=== PATIENT | female | born 1985 | race Native Hawaiian/Other Pacific Islander ===

== ENCOUNTER 2018-03-26 19:23 | Outpatient (CLI) | payer OTHER, MEDICAID | END 2018-03-26 19:24 | disposition EMS.NT | LOC: EMS 19:23 | PROVIDERS: ATTEND Surgery | DX: Z04.1 Encounter for examination and observation following transport accident (principal) ==

== ENCOUNTER 2018-03-26 20:18 | Emergency (ER) | payer OTHER, MEDICAID ==
[2018-03-26 20:33] VITALS: BP 129/73
[2018-03-26] MEDS ORDERED: CYCLOBENZAPRINE 10 MG TABLET PO STA (20:55)
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
== END 2018-03-26 22:25 | disposition home or self-care (01) ==
LOC: ED 20:18
DX: S19.9XXA Unspecified injury of neck, initial encounter (principal); V43.52XA Car driver injured in collision with other type car in traffic accident, initial encounter
CPT/HCPCS: 72040; 99282; 99283; A9270

== ENCOUNTER 2018-07-22 21:53 | Emergency (ER) | payer MEDICAID ==
--- NOTE | 2018-07-22 21:57 | ED Physician Documentation ---
PD HPI URI - Stated complaint Stated Complaint: THROAT PX/COUGH - History obtained from History obtained from: Patient - History of Present Illness Timing - onset: How many days ago (2-3) Timing duration: Days (She has had 2 to 3 days of progressive sore throat and pain with swallowing and now some coughing as well. She has not had any fevers. She did not feel any swollen glands. She has not had a runny nose. She has not had any prior similar episodes.) Timing details: Gradual onset, Still present Associated symptoms: Sore throat, Dry cough. No: Fever, Nasal congestion, Swollen nodes, Chest pain, NVD Contributing factors: No: Sick contact Similar symptoms before: Has not had sx before Recently seen: Not recently seen Review of Systems Constitutional: reports: Myalgias. denies: Fever, Chills Nose: denies: Rhinorrhea / runny nose, Congestion Throat: reports: Sore throat. denies: Oral lesions / sores Respiratory: reports: Cough. denies: Dyspnea, Wheezing GI: denies: Nausea, Vomiting, Diarrhea Skin: denies: Rash, Lesions Neurologic: denies: Headache PD PAST MEDICAL HISTORY - Past Medical History Past Medical History: No : Other - Past Surgical History Past Surgical History: No - Present Medications Home Medications: Ambulatory Orders Medication Instructions Recorded Confirmed Cyclobenzaprine [Flexeril] 10 mg PO TID PRN #20 tablet 03/26/18 Cetirizine [ZyrTEC] 10 mg PO DAILY #15 tablet 07/22/18 Dexamethasone [Decadron] 4 mg PO DAILY #5 tablet 07/22/18 Hydrocodone/Acetaminophen [[place] 1 each PO Q6H PRN #12 tablet 07/22/18 5-325 Tablet] Naproxen 375 mg PO BID #20 tablet 07/22/18 - Allergies Allergies/Adverse Reactions: Allergies Allergy/AdvReac Type Severity Reaction Status Date / Time No Known Drug Allergies Allergy Verified 07/22/18 22:05 - Social History Does the pt smoke?: No Smoking Status: Never smoker Does the pt drink ETOH?: No Does the pt have substance abuse?: Yes - Immunizations Immunizations are current?: No Immunizations: TDAP >10years/unknown - POLST Patient has POLST: No PD ED PE NORMAL - Vitals Vital signs reviewed: Yes - General General: Alert and oriented X 3, No acute distress, Well developed/nourished - HEENT HEENT: Ears normal, Moist mucous membranes. No: Pharynx benign (mild redness of the tonsils, without exudate. No oral ulcerations or other lesions. No peritonsillar edema. ) - Neck Neck: Supple, no meningeal sign, No adenopathy - Cardiac Cardiac: RRR, No murmur - Respiratory Respiratory: Clear bilaterally - Derm Derm: Normal color, Warm and dry, No rash Results - Vitals Vitals: Vital Signs - 24 hr 07/22/18 07/22/18 22:04 22:43 Temperature 36.8 C Heart Rate 74 Respiratory 17 16 Rate Blood Pressure 111/59 L O2 Saturation 99 Oxygen O2 Source Room air - Labs Labs: Laboratory Tests 07/22/18 07/22/18 22:05 22:15 Ur Specific [place] >=1.030 H Urine HCG, Qual NEGATIVE Group A Strep Rapid Negative PD MEDICAL DECISION MAKING - ED course Complexity details: considered differential, d/w patient Departure - Departure Disposition: 01 Home, Self Care Clinical Impression: Pharyngitis, acute Qualifiers: Pharyngitis/tonsillitis etiology: unspecified etiology Qualified Code(s): J02.9 - Acute pharyngitis, unspecified Condition: Stable Record reviewed to determine appropriate education?: Yes Instructions: ED Pharyngitis Viral Report Pending Prescriptions: Cetirizine [ZyrTEC] 10 mg PO DAILY #15 tablet Dexamethasone [Decadron] 4 mg PO DAILY #5 tablet Hydrocodone/Acetaminophen [[place] 5-325 Tablet] 1 each PO Q6H PRN #12 tablet PRN Reason: Pain Naproxen 375 mg PO BID #20 tablet Comments: Stay well-hydrated. Your rapid strep test is negative. The culture from that will result in 2 to 3 days and we will call you with it shows any signs of bacterial cause. For now will presume viral or allergy causes for this. Use naproxen and Decadron anti-inflammatories as directed. Add pain medicine if needed. Use cetirizine antihistamine daily for potential allergy cause and use that for the next several weeks. Discharge Date/Time: 07/22/18 22:44
[2018-07-22 22:05] VITALS: BP 111/59
[2018-07-22] MEDS ORDERED: HYDROcod/ACET 5/325 Prepack 4 PO STA (22:17)
[2018-07-22] MEDS ORDERED: NAPROXEN 250 MG TABLET PO STA (22:17)
[2018-07-22] MEDS ORDERED: CHERRY SYRUP 10 ML UDC PO ONE (22:17)
[2018-07-22] MEDS ORDERED: DEXAMETHASONE 10 MG/ML VIAL PO STA (22:17)
[2018-07-22 22:35] LABS: HCG UR QUAL NEGATIVE
== END 2018-07-22 22:44 | disposition home or self-care (01) ==
LOC: ED 21:53
DX: J02.9 Acute pharyngitis, unspecified (principal)
CPT/HCPCS: 81025; 87070; 87430; 99283; A9270

== ENCOUNTER 2018-10-04 00:52 | Emergency (ER) | payer MEDICAID ==
[2018-10-04 00:59] VITALS: BP 108/66
--- NOTE | 2018-10-04 01:15 | ED Physician Documentation ---
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 Denies h/o similar rash. Review of Systems Constitutional: denies: Fever Respiratory: denies: Dyspnea, Cough, Wheezing Skin: reports: Rash PD PAST MEDICAL HISTORY - Past Medical History Past Medical History: Yes Cardiovascular: None Respiratory: None Neuro: None Endocrine/Autoimmune: None GI: None CULTURIST: None : Other HEENT: None Psych: None Musculoskeletal: None Derm: None - Past Surgical History Past Surgical History: Yes General: Other - Present Medications Home Medications: Ambulatory Orders Medication Instructions Recorded Confirmed Cyclobenzaprine [Flexeril] 10 mg PO TID PRN #20 tablet 03/26/18 Cetirizine [ZyrTEC] 10 mg PO DAILY #15 tablet 07/22/18 Hydrocodone/Acetaminophen [[place] 1 each PO Q6H PRN #12 tablet 07/22/18 5-325 Tablet] Naproxen 375 mg PO BID #20 tablet 07/22/18 dexAMETHasone [Decadron] 4 mg PO DAILY #5 tablet 07/22/18 Cetirizine HCl 10 mg PO DAILY #10 tablet 10/04/18 predniSONE [Prednisone] 40 mg PO DAILY 3 Days #6 tablet 10/04/18 - Allergies Allergies/Adverse Reactions: Allergies Allergy/AdvReac Type Severity Reaction Status Date / Time No Known Drug Allergies Allergy Verified 10/04/18 00:59 - Social History Does the pt smoke?: Yes Smoking Status: Current every day smoker Does the pt drink ETOH?: No Does the pt have substance abuse?: Yes Substance Use and Type: Marijuana - Immunizations Immunizations are current?: No Immunizations: TDAP >10years/unknown - POLST Patient has POLST: No PD ED PE NORMAL - Vitals Vital signs reviewed: Yes - General General: Alert and oriented X 3, No acute distress, Well developed/nourished - Respiratory Respiratory: No respiratory distress, Clear bilaterally PD ED PE EXPANDED - Derm Derm: Urticaria (BUE, back (lower back), abdomen) Results - Vitals Vitals: Vital Signs - 24 hr 10/04/18 10/04/18 10/04/18 00:58 01:23 01:42 Temperature 36.7 C Heart Rate 73 Respiratory 17 17 16 Rate Blood Pressure 108/66 O2 Saturation 96 Oxygen O2 Source Room air PD MEDICAL DECISION MAKING - ED course Complexity details: considered differential, d/w patient ED course: rash c/w urticaria/hives without apparent inciting event/factor(s). will treat with steroid (decadron now and prednisone rx) and antihistamines Departure - Departure Disposition: 01 Home, Self Care Clinical Impression: Hives Condition: Good Health Concerns: rash Plan of Treatment: antihistamines as directed. steroid (prednisone) as prescribed Care Goals: symptom control, prevention of recurrence Assessment: see diagnosis Instructions: ED Allergic Reaction General Other Prescriptions: Cetirizine HCl 10 mg PO DAILY #10 tablet predniSONE [Prednisone] 40 mg PO DAILY 3 Days #6 tablet Discharge Date/Time: 10/04/18 01:43
[2018-10-04] MEDS ORDERED: DEXAMETHASONE 10 MG/ML VIAL PO STA (01:32)
[2018-10-04] MEDS ORDERED: CHERRY SYRUP 10 ML UDC PO ONE (01:32)
[2018-10-04] MEDS ORDERED: diphenhydrAMINE 25 MG CAPSULE PO STA (01:33)
== END 2018-10-04 01:43 | disposition home or self-care (01) ==
LOC: ED 00:52
DX: L50.9 Urticaria, unspecified (principal); F17.200 Nicotine dependence, unspecified, uncomplicated
CPT/HCPCS: 99282; 99283; A9270

== ENCOUNTER 2018-12-10 17:31 | Emergency (ER) | payer MEDICAID ==
--- NOTE | 2018-12-10 17:56 | ED Physician Documentation ---
History of Present Illness - Stated complaint Stated Complaint: FATIGUE/COLD - Chief complaint Chief Complaint: General - History obtained from History obtained from: Patient - History of Present Illness Timing: How many weeks ago (2) Pain level now: 0 - Additonal information Additional information: This is a 33-year-old woman who states that she is with a last menstrual period at the beginning of October who presents with c/o extreme fatigue and feeling cold and 'not right'. She has had 2+ home test but does not have an OB appointment until December 20. She says she is been waking up in the mornings just with this feeling of gas in her stomach and she is burping a lot she has this constant urge to vomit although she is not vomiting. She is been extremely fatigued and also feels so cold that she is dressing and a sweatshirt and to sitting in the sun and still feels cold. She feels that absolutely certain this is not related to the because this is her third she never experienced anything like this with her prior pregnancies. She has not felt ill in terms of a sore throat or stuffy nose or had fever. She has not been nauseous or experiencing heartburn. She does not feel dizzy but she was driving down the road the other day and it just only felt like the sunlight was way too bright. She has not had any pelvic cramping. She has not started taking multivitamins yet. The patient does have a no history of thyroid disorder but has had anemia associated with in the past. She has a 3-year-old and a 4-year-old children at home. She was working but quit over the summer and denies alcohol but says she is trying to cut back on her use of marijuana during this . Review of Systems Constitutional: denies: Fever Eyes: reports: Other (There is times that everything seems to bright) Ears: denies: Ear pain Nose: denies: Rhinorrhea / runny nose Throat: denies: Sore throat Cardiac: denies: Chest pain / pressure, Palpitations Respiratory: denies: Dyspnea, Cough GI: reports: Nausea. denies: Abdominal Pain, Vomiting : reports: LMP (beginning October), Now EGA (7-8 weeks). denies: Dysuria Skin: denies: Rash Musculoskeletal: denies: Extremity pain, Joint swelling Neurologic: reports: Generalized weakness. 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 : Other HEENT: None Psych: None Musculoskeletal: None Derm: None - Past Surgical History Past Surgical History: Yes General: Other - Present Medications Home Medications: Ambulatory Orders Medication Instructions Recorded Confirmed Cyclobenzaprine [Flexeril] 10 mg PO TID PRN #20 tablet 03/26/18 Cetirizine [ZyrTEC] 10 mg PO DAILY #15 tablet 07/22/18 Hydrocodone/Acetaminophen [[place] 1 each PO Q6H PRN #12 tablet 07/22/18 5-325 Tablet] Naproxen 375 mg PO BID #20 tablet 07/22/18 dexAMETHasone [Decadron] 4 mg PO DAILY #5 tablet 07/22/18 Cetirizine HCl 10 mg PO DAILY #10 tablet 10/04/18 predniSONE [Prednisone] 40 mg PO DAILY 3 Days #6 tablet 10/04/18 - Allergies Allergies/Adverse Reactions: Allergies Allergy/AdvReac Type Severity Reaction Status Date / Time No Known Drug Allergies Allergy Verified 12/10/18 17:45 - Social History Does the pt smoke?: Yes Smoking Status: Current every day smoker Does the pt drink ETOH?: No Does the pt have substance abuse?: Yes - Immunizations Immunizations are current?: No Immunizations: TDAP >10years/unknown - POLST Patient has POLST: No PD ED PE NORMAL - Vitals Vital signs reviewed: Yes - General General: Alert and oriented X 3, Other (She became tearful concerned that something is very wrong with her.) - HEENT HEENT: PERRL, EOMI, Pharynx benign, Other (Mucous membranes are little dry.) - Neck Neck: Supple, no meningeal sign, No adenopathy, Thyroid normal, No JVD - Cardiac Cardiac: RRR, No murmur - Respiratory Respiratory: No respiratory distress, Clear bilaterally - Abdomen Abdomen: Normal bowel sounds, Soft, Non tender - Derm Derm: Normal color, Warm and dry, No rash - Extremities Extremities: No deformity, No edema - Neuro Neuro: Alert and oriented X 3, gis coordinator 2-12 intact, No motor deficit, No sensory deficit, Normal speech - Psych Psych: Other (Tearful and anxious) Results - Vitals Vitals: Vital Signs - 24 hr 12/10/18 12/10/18 12/10/18 17:45 18:57 19:42 Temperature 37.0 C Heart Rate 81 75 Respiratory 16 18 17 Rate Blood Pressure 119/65 109/71 119/74 O2 Saturation 99 100 100 Oxygen O2 Source Room air - Labs Labs: Laboratory Tests 12/10/18 12/10/18 12/10/18 18:20 18:20 18:20 WBC 10.1 RBC 4.23 Hgb 12.6 Hct 37.2 MCV 87.9 MCH 29.8 MCHC 33.9 RDW 12.3 Plt Count 288 MPV 10.6 Neut # (Auto) 7.0 H Lymph # (Auto) 2.2 [place] # (Auto) 0.6 Eos # (Auto) 0.2 Baso # (Auto) 0.0 Absolute Nucleated RBC 0.00 Nucleated RBC % 0.0 Sodium 135 Potassium 3.7 Chloride 102 Carbon Dioxide 24 Anion Gap 9.0 BUN 11 Creatinine 0.5 Estimated GFR (MDRD) 144 Glucose 92 Calcium 9.6 Phosphorus 3.8 Magnesium 2.1 Total Bilirubin 0.4 AST 14 ALT 10 Alkaline Phosphatase 40 L Total Protein 7.6 Albumin 4.8 Globulin 2.8 Albumin/Globulin Ratio 1.7 Lipase 21 L TSH 0.67 Urine Color Urine Clarity Urine pH Ur Specific [place] Urine Protein Urine Glucose (UA) Urine Ketones Urine Occult Blood Urine Nitrite Urine Bilirubin Urine Urobilinogen Ur Leukocyte Esterase Ur Microscopic Review Urine Culture Comments Urine HCG, Qual Urine Opiates Screen Ur Oxycodone Screen Urine Methadone Screen Ur Propoxyphene Screen Ur Barbiturates Screen Ur Tricyclics Screen Ur Phencyclidine Scrn Ur Amphetamine Screen U Methamphetamines Scrn U Benzodiazepines Scrn Urine Cocaine Screen U Cannabinoids Screen 12/10/18 12/10/18 18:23 18:24 WBC RBC Hgb Hct MCV MCH MCHC RDW Plt Count MPV Neut # (Auto) Lymph # (Auto) [place] # (Auto) Eos # (Auto) Baso # (Auto) Absolute Nucleated RBC Nucleated RBC % Sodium Potassium Chloride Carbon Dioxide Anion Gap BUN Creatinine Estimated GFR (MDRD) Glucose Calcium Phosphorus Magnesium Total Bilirubin AST ALT Alkaline Phosphatase Total Protein Albumin Globulin Albumin/Globulin Ratio Lipase TSH Urine Color YELLOW Urine Clarity CLEAR Urine pH 6.5 Ur Specific [place] 1.020 Urine Protein NEGATIVE Urine Glucose (UA) NEGATIVE Urine Ketones 15 H Urine Occult Blood NEGATIVE Urine Nitrite NEGATIVE Urine Bilirubin NEGATIVE Urine Urobilinogen 0.2 (NORMAL) Ur Leukocyte Esterase NEGATIVE Ur Microscopic Review NOT INDICATED Urine Culture Comments NOT INDICATED Urine HCG, Qual POSITIVE Urine Opiates Screen NEGATIVE Ur Oxycodone Screen NEGATIVE Urine Methadone Screen NEGATIVE Ur Propoxyphene Screen NEGATIVE Ur Barbiturates Screen NEGATIVE Ur Tricyclics Screen NEGATIVE Ur Phencyclidine Scrn NEGATIVE Ur Amphetamine Screen NEGATIVE U Methamphetamines Scrn NEGATIVE U Benzodiazepines Scrn NEGATIVE Urine Cocaine Screen NEGATIVE U Cannabinoids Screen POSITIVE H PD MEDICAL DECISION MAKING - ED course Complexity details: reviewed results, re-evaluated patient, d/w patient ED course: Patient was feeling a little better after a liter of fluids. She is not anemic. Electrolytes are normal and her TSH is normal. 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 Encouraged her to seek some relief with family members in terms of helping to take care of her children so that she can get some rest. Keep her OB appointment in December as scheduled. Follow-up sooner if her symptoms are worsening. Departure - Departure Disposition: Home, Self Care Clinical Impression: Fatigue Qualifiers: Fatigue type: -related Trimester: first trimester Qualified Code(s): O26.811 - related exhaustion and fatigue, first trimester Condition: Good Instructions: Fatigue Manage Follow-Up: Dr Jesus [Other] Comments: You should begin a vitamin with iron [id number].Make sure that you rest as much as possible. Eat a healthy diet and follow-up with the OB as scheduled on December 20. Return if your symptoms are worsening.
[2018-12-10] MEDS ORDERED: SODIUM CHLORIDE 0.9% 1,000 ML IV ONE (18:10)
[2018-12-10 18:31] LABS: BILIRUBIN,URINE NEGATIVE (NEGATIVE); GLUCOSE, URINE (UA) NEGATIVE (NEGATIVE); KETONES,URINE (UA) 15 mg/dL (NEGATIVE); LEUKOCYTE ESTERASE, URINE NEGATIVE (NEGATIVE); NITRITE,URINE NEGATIVE (NEGATIVE); OCCULT BLOOD,URINE NEGATIVE (NEGATIVE); PH,URINE 6.5 PH (5.0-7.5); PROTEIN,URINE NEGATIVE (NEGATIVE); UROBILINOGEN,URINE 0.2 (NORMAL) E.U./dL (NORMAL)
[2018-12-10 18:36] LABS: CLARITY,URINE CLEAR (CLEAR); HCG UR QUAL POSITIVE
[2018-12-10 18:37] LABS: MUDS CUTOFF CONCENTRATIONS CUTOFF CONC BELOW:
[2018-12-10 18:39] LABS: BASOPHILS % (AUTO) 0.4 %; EOSINOPHILS # (AUTO) 0.2 10^3/uL (0.0-0.7); EOSINOPHILS % (AUTO) 1.5 %; HGB - HEMOGLOBIN 12.6 g/dL (12.0-16.0); LYMPHOCYTES # (AUTO) 2.2 10^3/uL (1.5-3.5); LYMPHOCYTES % (AUTO) 22.2 %; MEAN CORPUSCULAR HEMOGLOBIN 29.8 pg (27.0-31.0); MEAN CORPUSCULAR HGB CONC 33.9 g/dL (32.0-36.0); MEAN CORPUSCULAR VOLUME 87.9 fL (81.0-99.0); MEAN PLATELET VOLUME 10.6 fL (7.9-10.8); MONOCYTES # (AUTO) 0.6 10^3/uL (0.0-1.0); MONOCYTES % (AUTO) 6.4 %; PLT - PLATELET COUNT 288 10^3/uL (130-450); RED BLOOD COUNT 4.23 10^6/uL (4.20-5.40); RED CELL DISTRIBUTION WIDTH 12.3 % (12.0-15.0); WHITE BLOOD COUNT 10.1 x10^3/uL (4.8-10.8)
[2018-12-10 18:45] LABS: AMPHETAMINE SCREEN,URINE NEGATIVE (NEGATIVE); BENZODIAZEPINES SCREEN, URINE NEGATIVE (NEGATIVE); COCAINE SCREEN URINE NEGATIVE (NEGATIVE); METHADONE SCREEN, URINE NEGATIVE (NEGATIVE); METHAMPHETAMINES SCREEN, URINE NEGATIVE (NEGATIVE); OPIATE SCREEN, URINE NEGATIVE (NEGATIVE); OXYCODONE SCREEN, URINE NEGATIVE (NEGATIVE); PROPOXYPHENE SCREEN, URINE NEGATIVE (NEGATIVE); TRICYCLIC ANTIDEPRESSANT,URINE NEGATIVE (NEGATIVE)
[2018-12-10 18:53] LABS: ALBUMIN 4.8 g/dL (3.2-5.5); ALBUMIN/GLOBULIN RATIO 1.7 (1.0-2.2); BILIRUBIN,TOTAL 0.4 mg/dL (0.2-1.0); CALCIUM 9.6 mg/dL (8.5-10.3); CREATININE 0.5 mg/dL (0.4-1.0); MAGNESIUM 2.1 mg/dL (1.7-2.8); PHOSPHORUS 3.8 mg/dL (2.5-4.6); TOTAL PROTEIN 7.6 g/dL (6.7-8.2)
[2018-12-10 19:43] VITALS: BP 119/74
== END 2018-12-10 20:38 | disposition home or self-care (01) ==
LOC: ED 17:31
DX: O26.811 Pregnancy related exhaustion and fatigue, first trimester (principal); F17.200 Nicotine dependence, unspecified, uncomplicated
CPT/HCPCS: 36415; 80053; 80306; 81001; 81003; 81025; 83690; 83735; 84100; 84443; 85025; 87086; 96360; 99284

== ENCOUNTER 2019-12-03 12:18 | Emergency (ER) | payer MEDICAID ==
--- NOTE | 2019-12-03 12:48 | ED Physician Documentation ---
PD HPI FEMALE - Stated complaint Stated Complaint: FEMALE - Chief complaint Chief Complaint: Abd Pain - History obtained from History obtained from: Patient - Additional information Additional information: 34-year-old woman had her third child in July. About [facility] through the she was having some problems and I guess per her description had some high-grade cervical dysplasia on both Pap smear and biopsy and was told that after she delivered would need a LEEP procedure. However subsequent to Delivery, repeat Pap smear was normal and so never had a LEEP procedure. 2 weeks ago had a large volume 4-day menses and since then has had lower pelvic pain especially on the left. She also notes a hemorrhoid that bled a lot today when she had a bowel movement. She is breast-feeding.She tried to get into the clinic but they would not allow her to schedule an appointment. Review of Systems Constitutional: denies: Fever, Chills Cardiac: denies: Palpitations Respiratory: denies: Dyspnea, Cough GI: reports: Abdominal Pain. 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 : Other HEENT: None Psych: None Musculoskeletal: None Derm: None - Past Surgical History Past Surgical History: Yes General: Other - Present Medications Home Medications: Ambulatory Orders Medication Instructions Recorded Confirmed Cyclobenzaprine [Flexeril] 10 mg PO TID PRN #20 tablet 03/26/18 Cetirizine [ZyrTEC] 10 mg PO DAILY #15 tablet 07/22/18 Hydrocodone/Acetaminophen [[place] 1 each PO Q6H PRN #12 tablet 07/22/18 5-325 Tablet] Naproxen 375 mg PO BID #20 tablet 07/22/18 dexAMETHasone [Decadron] 4 mg PO DAILY #5 tablet 07/22/18 Cetirizine HCl 10 mg PO DAILY #10 tablet 10/04/18 predniSONE [Prednisone] 40 mg PO DAILY 3 Days #6 tablet 10/04/18 metroNIDAZOLE [Flagyl] 500 mg PO BID #14 tablet 12/03/19 - Allergies Allergies/Adverse Reactions: Allergies Allergy/AdvReac Type Severity Reaction Status Date / Time hydrocodone AdvReac Nausea Verified 12/03/19 12:42 - Social History Does the pt smoke?: Yes Smoking Status: Current every day smoker Does the pt drink ETOH?: No Does the pt have substance abuse?: Yes - Immunizations Immunizations are current?: No Immunizations: TDAP >10years/unknown - POLST Patient has POLST: No PD ED PE NORMAL - Vitals Vital signs reviewed: Yes - General General: Alert and oriented X 3, No acute distress - Abdomen Abdomen: Soft, Non tender - Female Female : Replenisher present (Irene and Seble RN), Other (Mod amt thick creamy discharge. No cervical motion or adnexal tenderness. No masses.) - Rectal Rectal: Other (Single small nonthrombosed external hemorrhoid) - Back Back: No CVA TTP, No spinal TTP - Neuro Neuro: Alert and oriented X 3, Normal speech - Psych Psych: Normal mood, Normal affect Results - Vitals Vitals: Vital Signs - 24 hr 12/03/19 12/03/19 12/03/19 12:33 14:25 15:14 Temperature 36.5 C 36.8 C 36.8 C Heart Rate 68 77 77 Respiratory 16 16 16 Rate Blood Pressure 140/99 H 138/96 H 138/96 H O2 Saturation 99 96 97 Oxygen O2 Source Room air - Labs Labs: Microbiology 12/03/19 13:05 Wet Prep - Final Vaginal Laboratory Tests 12/03/19 12/03/19 12/03/19 12:47 12:49 12:55 WBC 6.7 RBC 4.49 Hgb 13.2 Hct 39.9 MCV 88.9 MCH 29.4 MCHC 33.1 RDW 13.2 Plt Count 338 MPV 10.3 Neut # (Auto) 4.1 Lymph # (Auto) 2.0 [place] # (Auto) 0.4 Eos # (Auto) 0.2 Baso # (Auto) 0.1 Absolute Nucleated RBC 0.00 Nucleated RBC % 0.0 Sodium Potassium Chloride Carbon Dioxide Anion Gap BUN Creatinine Estimated GFR (MDRD) Glucose Calcium Total Bilirubin AST ALT Alkaline Phosphatase Total Protein Albumin Globulin Albumin/Globulin Ratio Lipase Urine Color YELLOW Urine Clarity CLEAR Urine pH 6.5 Ur Specific [place] 1.015 1.015 Urine Protein NEGATIVE Urine Glucose (UA) NEGATIVE Urine Ketones TRACE Urine Occult Blood NEGATIVE Urine Nitrite NEGATIVE Urine Bilirubin NEGATIVE Urine Urobilinogen 0.2 (NORMAL) Ur Leukocyte Esterase NEGATIVE Ur Microscopic Review NOT INDICATED Urine Culture Comments NOT INDICATED Urine HCG, Qual NEGATIVE C. glabrata (PCR) C. krusei (PCR) [place]via species DNA T. vaginalis (PCR) Bact Vaginosis (PCR) 12/03/19 12/03/19 12:55 13:05 WBC RBC Hgb Hct MCV MCH MCHC RDW Plt Count MPV Neut # (Auto) Lymph # (Auto) [place] # (Auto) Eos # (Auto) Baso # (Auto) Absolute Nucleated RBC Nucleated RBC % Sodium 137 Potassium 3.6 Chloride 101 Carbon Dioxide 28 Anion Gap 8.0 BUN 15 Creatinine 0.6 Estimated GFR (MDRD) 116 Glucose 90 Calcium 9.5 Total Bilirubin 0.9 AST 18 ALT 16 Alkaline Phosphatase 70 Total Protein 8.2 Albumin 5.0 Globulin 3.2 Albumin/Globulin Ratio 1.6 Lipase 23 Urine Color Urine Clarity Urine pH Ur Specific [place] Urine Protein Urine Glucose (UA) Urine Ketones Urine Occult Blood Urine Nitrite Urine Bilirubin Urine Urobilinogen Ur Leukocyte Esterase Ur Microscopic Review Urine Culture Comments Urine HCG, Qual C. glabrata (PCR) NEGATIVE C. krusei (PCR) NEGATIVE [place] species DNA NEGATIVE T. vaginalis (PCR) NEGATIVE Bact Vaginosis (PCR) POSITIVE A PD MEDICAL DECISION MAKING - ED course ED course: 34-year-old woman had heavy bleeding couple of weeks ago and now has pelvic pain . There was some Concern about abnormal Pap smears and biopsies, discussed with her that that would have to be worked up with a duplicating machine servicer, but we did find evidence of pelvic congestion syndrome, fibroids, and bacterial vaginosis. Counseled at length about these diagnoses and started on Flagyl for the latter. Departure - Departure Disposition: 01 Home, Self Care Clinical Impression: Bacterial vaginosis, Pelvic congestion syndrome Fibroid uterus Qualifiers: Uterine leiomyoma location: unspecified location Qualified Code(s): D25.9 - Leiomyoma of uterus, unspecified Condition: Good Record reviewed to determine appropriate education?: Yes Instructions: Pelvic Congestion Syndrome, ED Fibroids, ED Vaginosis Bacterial Follow-Up: [facility] [Provider Group] Prescriptions: metroNIDAZOLE [Flagyl] 500 mg PO BID #14 tablet Comments: As discussed, we found 3 things today, it appears that you have some fibroids and pelvic congestion on ultrasound. For this you should follow-up with the duplicating machine servicer for further evaluation and treatment and to discuss options. You also have evidence of bacterial vaginosis. This should be treated with the Flagyl antibiotic I am giving you, do not Drink alcohol while taking the antibiotic it will make you quite ill. Return if worsening. Ibuprofen as needed for the pain. Blood Work, urinalysis, and test were negative/normal. Discharge Date/Time: 12/03/19 15:15
[2019-12-03 12:58] LABS: BILIRUBIN,URINE NEGATIVE (NEGATIVE); GLUCOSE, URINE (UA) NEGATIVE (NEGATIVE); KETONES,URINE (UA) TRACE mg/dL (NEGATIVE); LEUKOCYTE ESTERASE, URINE NEGATIVE (NEGATIVE); NITRITE,URINE NEGATIVE (NEGATIVE); OCCULT BLOOD,URINE NEGATIVE (NEGATIVE); PH,URINE 6.5 PH (5.0-7.5); PROTEIN,URINE NEGATIVE (NEGATIVE); UROBILINOGEN,URINE 0.2 (NORMAL) E.U./dL (NORMAL)
[2019-12-03 12:59] LABS: BASOPHILS # (AUTO) 0.1 10^3/uL (0.0-0.1); BASOPHILS % (AUTO) 0.9 %; EOSINOPHILS # (AUTO) 0.2 10^3/uL (0.0-0.7); EOSINOPHILS % (AUTO) 2.5 %; HGB - HEMOGLOBIN 13.2 g/dL (12.0-16.0); LYMPHOCYTES % (AUTO) 29.9 %; MEAN CORPUSCULAR HEMOGLOBIN 29.4 pg (27.0-31.0); MEAN CORPUSCULAR HGB CONC 33.1 g/dL (32.0-36.0); MEAN CORPUSCULAR VOLUME 88.9 fL (81.0-99.0); MEAN PLATELET VOLUME 10.3 fL (7.9-10.8); MONOCYTES # (AUTO) 0.4 10^3/uL (0.0-1.0); MONOCYTES % (AUTO) 5.5 %; NEUTROPHILS # (AUTO) 4.1 10^3/uL (1.5-6.6); NEUTROPHILS % (AUTO) 61.1 %; PLT - PLATELET COUNT 338 10^3/uL (130-450); RED BLOOD COUNT 4.49 10^6/uL (4.20-5.40); RED CELL DISTRIBUTION WIDTH 13.2 % (12.0-15.0); WHITE BLOOD COUNT 6.7 x10^3/uL (4.8-10.8)
[2019-12-03 13:01] LABS: CLARITY,URINE CLEAR (CLEAR)
[2019-12-03 13:11] LABS: ALBUMIN/GLOBULIN RATIO 1.6 (1.0-2.2); BILIRUBIN,TOTAL 0.9 mg/dL (0.2-1.0); CALCIUM 9.5 mg/dL (8.5-10.3); CREATININE 0.6 mg/dL (0.4-1.0); TOTAL PROTEIN 8.2 g/dL (6.7-8.2)
[2019-12-03 13:41] LABS: HCG UR QUAL NEGATIVE
[2019-12-03 14:26] VITALS: BP 138/96
--- NOTE | 2019-12-03 14:49 | Ultrasound Report ---
PROCEDURE: Pelvic w/Transvag+Doppler Comp INDICATIONS: pelvic pain, R TECHNIQUE: Real-time scanning was performed of the pelvic organs, with image documentation. Additional endovagi nal scanning was necessary due to incomplete visualization of the adnexal and endometrial structures by transabdominal scanning. COMPARISON: None. FINDINGS: Transabdominal scanning: Limited scanning through the kidneys shows no hydronephrosis. No pathologi c free abdominal or pelvic fluid. Endovaginal scanning: Uterus: Uterus is anteverted and normal in size at 8.2 x 3.9 x 4.3 cm. The endometrium measures 5 m m in combined thickness. Uterine myometrium is mildly heterogeneous without focal mass. Ovaries: Normal follicular echotexture seen on each ovary. The right ovary measures 2.2 x 2.0 x 2.4 cm for a volume of 5.4 cc. The left ovary measures 3.2 x 1.5 x 1.7 cm for a volume of 4.4 cc. Trace amount of posterior cul-de-sac fluid. Prominent, patent pelvic vasculature may indicate pelvic congestion syndrome, otherwise physiologic. No venous thrombosis. IMPRESSION: 1. Mildly heterogeneous uterus may indicate adenomyosis. 2. Normal ovaries. 3. Prominent pelvic vessels. Consider pelvic congestion syndrome. 4. Preliminary results provided by the hydraulic controls technician to the emergency room provider. Reviewed by: Oneyda Sky MD on 12/03/2019 2:48 PM PDT Approved by: Oneyda Sky MD on 12/03/2019 2:48 PM PDT Station ID: [id number]
[2019-12-03 15:18] LABS: CANDIDA GROUP DNA NEGATIVE (NEGATIVE); CANDIDA KRUSEI DNA NEGATIVE (NEGATIVE); TRICHOMONAS VAGINALIS DNA NEGATIVE (NEGATIVE)
== END 2019-12-03 15:15 | disposition home or self-care (01) ==
LOC: ED 12:18
DX: N76.0 Acute vaginitis (principal); N94.89 Other specified conditions associated with female genital organs and menstrual cycle; D25.9 Leiomyoma of uterus, unspecified; F17.200 Nicotine dependence, unspecified, uncomplicated
CPT/HCPCS: 36415; 76830; 76856; 80053; 81001; 81003; 81025; 81599; 83690; 85025; 87086; 87210; 87491; 87591; 87661; 87801; 93975; 99284

== ENCOUNTER 2020-02-23 08:00 | Outpatient (CLI) | payer MEDICAID | END 2020-02-23 23:59 | disposition home or self-care (01) | LOC: LAB.R 08:00 | PROVIDERS: ATTEND Nurse Practitioner Obstetrics & Gynecology | DX: N94.89 Other specified conditions associated with female genital organs and menstrual cycle (principal); N89.8 Other specified noninflammatory disorders of vagina | CPT/HCPCS: 81599; 87481; 87661 ==

== ENCOUNTER 2020-03-28 12:15 | Outpatient (CLI) | payer MEDICAID ==
[2020-03-28 19:20] LABS: BASOPHILS # (AUTO) 0.1 10^3/uL (0.0-0.1); BASOPHILS % (AUTO) 0.7 %; EOSINOPHILS # (AUTO) 0.2 10^3/uL (0.0-0.7); EOSINOPHILS % (AUTO) 2.4 %; HGB - HEMOGLOBIN 12.6 g/dL (12.0-16.0); LYMPHOCYTES # (AUTO) 2.3 10^3/uL (1.5-3.5); LYMPHOCYTES % (AUTO) 32.9 %; MEAN CORPUSCULAR HEMOGLOBIN 29.2 pg (27.0-31.0); MEAN CORPUSCULAR HGB CONC 32.3 g/dL (32.0-36.0); MEAN CORPUSCULAR VOLUME 90.3 fL (81.0-99.0); MEAN PLATELET VOLUME 11.1 fL (7.9-10.8); MONOCYTES # (AUTO) 0.4 10^3/uL (0.0-1.0); MONOCYTES % (AUTO) 6.1 %; NEUTROPHILS # (AUTO) 4.1 10^3/uL (1.5-6.6); NEUTROPHILS % (AUTO) 57.6 %; PLT - PLATELET COUNT 309 10^3/uL (130-450); RED BLOOD COUNT 4.32 10^6/uL (4.20-5.40); RED CELL DISTRIBUTION WIDTH 12.4 % (12.0-15.0); WHITE BLOOD COUNT 7.1 x10^3/uL (4.8-10.8)
[2020-03-28 19:22] LABS: ALBUMIN 4.8 g/dL (3.2-5.5); ALBUMIN/GLOBULIN RATIO 1.7 (1.0-2.2); BILIRUBIN,TOTAL 0.9 mg/dL (0.2-1.0); CALCIUM 10.2 mg/dL (8.5-10.3); CREATININE 0.4 mg/dL (0.4-1.0); TOTAL PROTEIN 7.7 g/dL (6.7-8.2)
[2020-03-28 19:49] LABS: BILIRUBIN,URINE NEGATIVE (NEGATIVE); GLUCOSE, URINE (UA) NEGATIVE (NEGATIVE); KETONES,URINE (UA) NEGATIVE (NEGATIVE); LEUKOCYTE ESTERASE, URINE NEGATIVE (NEGATIVE); NITRITE,URINE NEGATIVE (NEGATIVE); OCCULT BLOOD,URINE NEGATIVE (NEGATIVE); PROTEIN,URINE NEGATIVE (NEGATIVE); UROBILINOGEN,URINE 1 (NORMAL) E.U./dL (NORMAL)
[2020-03-28 20:07] LABS: CLARITY,URINE CLOUDY (CLEAR)
[2020-03-28 20:08] LABS: AMORPHOUS SEDIMENT,UR Marked /LPF; BACTERIA,URINE None Seen /HPF (None Seen); RBC,URINE None Seen /HPF (0-5); SQUAMOUS EPITHELIAL CELL,UR NONE SEEN (<= Few)
== END 2020-03-28 23:59 | disposition home or self-care (01) ==
LOC: LAB.N 12:15
PROVIDERS: ATTEND Family Medicine
DX: R10.9 Unspecified abdominal pain (principal)
CPT/HCPCS: 36415; 80053; 81001; 81003; 82150; 83690; 85025; 87086

== ENCOUNTER 2020-04-06 18:45 | Outpatient (CLI) | payer MEDICAID ==
--- NOTE | 2020-04-07 08:38 | Ultrasound Report ---
PROCEDURE: Abdomen Complete INDICATIONS: ABDOMINAL PAIN TECHNIQUE: Real-time scanning was performed of the abdominal and retroperitoneal organs, with image documentatio n. COMPARISON: Correlation is made with overlapping portions of pelvic ultrasound 12/03/2019. FINDINGS: Liver: Liver is normal in size and homogeneous in echotexture. Gallbladder: No gallstones or significant sludge can be seen. The gallbladder wall does not appear th ickened. There is no specific pericholecystic fluid. The sonographic Dominguez's sign is negative. Biliary ducts: Intrahepatic bile ducts are non-dilated. Extrahepatic bile duct caliber measures 4 m m. Normal is 6-7 mm or less in diameter, or 10 mm or less post-cholecystectomy. Pancreas: Visualized portions of the pancreas are sonographically normal. Spleen: Spleen is normal in size and homogeneous in echotexture. Kidneys: Kidneys are normal in size and echotexture. Right kidney measures 10.6 cm long; left kidne y measures 10.1 cm long. No hydronephrosis or nephrolithiasis. No solid masses. Aorta: Visualized aorta is normal in caliber at less than 3 cm. Iliacs: Proximal common iliac arteries are normal in caliber at less than 2.5 cm. IVC: Intrahepatic inferior vena cava is patent. Miscellaneous: No free abdominal fluid. Overall scanning quality is limited, secondary to patient pain and inability to tolerate scanning, pa rticularly involving the left kidney. The patient terminated further imaging of the left kidney. IMPRESSION: There is tenderness when scanning the left kidney. However, no left kidney abnormality is seen. There is no hydronephrosis. The gallbladder demonstrates a normal sonographic appearance. No biliary dilatation is seen. Reviewed by: Armani Adorno MD on 04/07/2020 7:36 AM [facility] Approved by: Armani Adorno MD on 04/07/2020 7:36 AM [facility] Station ID: [id number]
== END 2020-04-06 18:46 | disposition home or self-care (01) ==
LOC: DI 18:45
PROVIDERS: ATTEND Family Medicine
DX: R10.9 Unspecified abdominal pain (principal)

== ENCOUNTER 2022-03-23 18:04 | Emergency (ER) | payer MEDICAID, OTHER ==
[2022-03-23 18:11] VITALS: BP 121/66
--- OUTSIDE RECORDS SUMMARY | 2022-03-23 18:37 | EXTERNAL MEDICAL SUMMARY RPT | Continuity of Care Document ---
:1985 Author Organization [facility] Address [address] [place] [address] Phone Care Team Providers Name Role Phone Gurpreet Bal Unavailable Unavailable Allergies and Intolerances date description facility type (no date) acetaminophen [facility] (unknown) (no date) hydrocodone [facility] (unknown) (no date) oxycodone [facility] (unknown) Encounters No information. Functional Status No information. Immunizations No information. Medications No information. Problems date description facility 2022-02-03 09:29 Alcohol use, unspecified, uncomplicated [facility] 2022-02-03 09:29 Varicose veins of right lower extremity with [facility] pain 2022-02-03 09:29 Encounter for general adult medical exa mination [facility] without abno 2022-02-03 09:29 Encounter for gynecological examination [facility] (general) (routine) 2022-02-03 09:29 Encounter for screening for human [facility] papillomavirus (HPV) 2022-02-03 09:29 Encounter for screening for malignant n eoplasm [facility] of cervix 2022-02-03 09:29 Encounter for initial prescription of [facility] transdermal patch horm 2022-02-03 09:29 Alcohol abuse counseling and surveillan ce of [facility] alcoholic 2022-02-03 09:29 Other problems related to lifestyle [facility] 2022-02-03 09:29 Other specified postprocedural states [facility] 2022-02-05 13:22 Unspecified ovarian cyst, left side [facility] 2022-02-05 13:22 Left lower quadrant pain [facility] 2022-03-20 00:00 Left flank pain [facility] 2022-03-20 00:00 Hematuria [facility] Procedures date description facility 2022-03-19 00:00 CT kidney, ureter and bladder [facility] Results/Labs test date author facility value unit interpret ation Result panel 1 (unknown) (no date) (unknown) [facility] Result panel 2 (unknown) (no date) (unknown[facility]) Result panel 3 (unknown) (no date) (unknown[facility]) Result panel 4 (unknown) (no date) (unknown[facility]) Result panel 5 (unknown) (no date) (unknown[facility]) Result panel 6 (unknown) (no date) (unknown[facility]) Result panel 7 (unknown) (no date) (unknown[facility]) Result panel 8 (unknown) (no date) (unknown[facility]) Result panel 9 (unknown) (no date) (unknown[facility]) Result panel 10 (unknown) (no date) (unknown[facility]) Result panel 11 (unknown) (no date) (unknown[facility]) Result panel 12 (unknown) (no date) (unknown[facility]) Result panel 13 (unknown) (no date) (unknown[facility]) Result panel 14 (unknown) (no date) (unknown[facility]) Result panel 15 (unknown) (no date) (unknown[facility]) Result panel 16 (unknown) (no date) (unknown[facility]) Result panel 17 (unknown) (no date) (unknown[facility]) Result panel 18 (unknown) (no date) (unknown[facility]) Result panel 19 (unknown) (no date) (unknown[facility]) Result panel 20 (unknown) (no date) (unknown[facility]) Result panel 21 (unknown) (no date) (unknown[facility]) Result panel 22 (unknown) (no date) (unknown[facility]) Result panel 23 (unknown) (no date) (unknown[facility]) Result panel 24 (unknown) (no date) (unknown[facility]) Result panel 25 (unknown) (no date) (unknown[facility]) Result panel 26 (unknown) (no date) (unknown[facility]) Result panel 27 (unknown) (no date) (unknown[facility]) Result panel 28 (unknown) (no date) (unknown[facility]) Result panel 29 (unknown) (no date) (unknown[facility]) Result panel 30 (unknown) (no date) (unknown[facility]) Result panel 31 (unknown) (no date) (unknown[facility]) Result panel 32 (unknown) (no date) (unknown[facility]) Result panel 33 (unknown) (no date) (unknown[facility]) Result panel 34 (unknown) (no date) (unknown[facility]) Result panel 35 (unknown) (no date) (unknown[facility]) Result panel 36 (unknown) (no date) (unknown[facility]) Result panel 37 (unknown) (no date) (unknown[facility]) Result panel 38 (unknown) (no date) (unknown[facility]) Result panel 39 (unknown) (no date) (unknown[facility]) Result panel 40 (unknown) (no date) (unknown[facility]) Result panel 41 (unknown) (no date) (unknown[facility]) Result panel 42 (unknown) (no date) (unknown[facility]) Result panel 43 (unknown) (no date) (unknown[facility]) Result panel 44 (unknown) (no date) (unknown[facility]) Result panel 45 (unknown) (no date) (unknown[facility]) Result panel 46 (unknown) (no date) (unknown[facility]) Result panel 47 (unknown) (no date) (unknown[facility]) Result panel 48 (unknown) (no date) (unknown[facility]) Result panel 49 (unknown) (no date) (unknown[facility]) Result panel 50 (unknown) (no date) (unknown[facility]) Result panel 51 (unknown) (no date) (unknown[facility]) Result panel 52 (unknown) (no date) (unknown[facility]) Result panel 53 (unknown) (no date) (unknown[facility]) Result panel 54 (unknown) (no date) (unknown[facility]) Result panel 55 (unknown) (no date) (unknown[facility]) Result panel 56 (unknown) (no date) (unknown[facility]) Result panel 57 (unknown) (no date) (unknown[facility]) Result panel 58 (unknown) (no date) (unknown[facility]) Result panel 59 (unknown) (no date) (unknown[facility]) Result panel 60 (unknown) (no date) (unknown[facility]) Result panel 61 (unknown) (no date) (unknown[facility]) Result panel 62 (unknown) (no date) (unknown[facility]) Result panel 63 (unknown) (no date) (unknown[facility]) Result panel 64 (unknown) (no date) (unknown[facility]) Result panel 65 (unknown) (no date) (unknown[facility]) Result panel 66 (unknown) (no date) (unknown[facility]) Result panel 67 (unknown) (no date) (unknown[facility]) Result panel 68 (unknown) (no date) (unknown[facility]) Result panel 69 (unknown) (no date) (unknown[facility]) Result panel 70 (unknown) (no date) (unknown[facility]) Result panel 71 (unknown) (no date) (unknown[facility]) Result panel 72 (unknown) (no date) (unknown[facility] unknown) Result panel 73 (unknown) (no (unknown) (unknown) (no value) (units (unk nown) date) unknown) (unknown) (no (unknown) (unknown) (1) Varicose (units (u nknown) date) veins of right unknown) lower extremity with pain: (unknown) (no (unknown) (unknown) [id number] (units (unkno wn) date) unknown) (unknown) (no (unknown) (unknown) 09:24 (units (unkno wn) date) unknown) (unknown) (no (unknown) (unknown) 1 patch (units (unkno wn) date) transdermal QWEEK unknown) #3 ea 12/22/21 [Rx Confirmed 12/22/21] (unknown) (no (unknown) (unknown) 12/22/21 (units (unkno wn) date) unknown) (unknown) (no (unknown) (unknown) 36-year-old (units (un known) date) female presents unknown) for a well-woman exam/Pap as well as to follow-up (unknown) (no (unknown) (unknown) Accompanied by: (units (unknown) date) Self / Same As unknown) Patient (unknown) (no (unknown) (unknown) Age/Sex: 36 / F (units (unknown) date) Date of Service: unknown) (unknown) (no (unknown) (unknown) Allergies (units (unkn own) date) unknown) (unknown) (no (unknown) (unknown) [place], [place] (units ( unknown) date) [id number] unknown) (unknown) (no (unknown) (unknown) Assessment + Plan (units (unknown) date) unknown) (unknown) (no (unknown) (unknown) Attending Dr: (units ( unknown) date) Gurpreet SCHOFIELD unknown) (unknown) (no (unknown) (unknown) BMI 27.6 (units (unkno wn) date) unknown) (unknown) (no (unknown) (unknown) BP 104/56 L (units (un known) date) unknown) (unknown) (no (unknown) (unknown) Blood Pressure (units (unknown) date) Location Lt unknown) brachial (unknown) (no (unknown) (unknown) Bright red rectal (units (unknown) date) bleeding unknown) (unknown) (no (unknown) (unknown) C/O pain on outer (units (unknown) date) side of both unknown) breasts. 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 (unknown) (no (unknown) (unknown) Chest pain (units (unk nown) date) unknown) (unknown) (no (unknown) (unknown) Chief Complaint (units (unknown) date) unknown) (unknown) (no (unknown) (unknown) Chief Complaint: (units (unknown) date) Well-woman unknown) exam/Pap/multiple issues (unknown) (no (unknown) (unknown) Chlamydia (units (unkn own) date) unknown) (unknown) (no (unknown) (unknown) Costochondritis (units (unknown) date) unknown) (unknown) (no (unknown) (unknown) Current smoker (units (unknown) date) unknown) (unknown) (no (unknown) (unknown) Cyst of left (units (u nknown) date) ovary unknown) (unknown) (no (unknown) (unknown) : 1985 (units (unknown) date) Acct:[id number] unknown) (unknown) (no (unknown) (unknown) Date of Last (units (u nknown) date) Menstrual Period: unknown) 01/15/22 (unknown) (no (unknown) (unknown) Dept at (units (unkno wn) date) . unknown) (unknown) (no (unknown) (unknown) Details: (units (unkno wn) date) unknown) (unknown) (no (unknown) (unknown) Diarrhea (units (unkno wn) date) unknown) (unknown) (no (unknown) (unknown) Documented By: (units (unknown) date) Gurpreet Bal unknown) 12/22/21 0922 (unknown) (no (unknown) (unknown) Draft (units (unkno wn) date) unknown) (unknown) (no (unknown) (unknown) Dyspareunia (units (un known) date) unknown) (unknown) (no (unknown) (unknown) Ectopic breast (units (unknown) date) tissue (12/23/17) unknown) (unknown) (no (unknown) (unknown) Excessive flatus (units (unknown) date) unknown) (unknown) (no (unknown) (unknown) Family History (units (unknown) date) (Reviewed 11/01/21 unknown) @ 10:42 by CHANDU Mclaughlin) (unknown) (no (unknown) (unknown) Family Practice (units (unknown) date) Office Visit unknown) (unknown) (no (unknown) (unknown) [facility] (unknown) (no (unknown) (unknown) H/O dilation and (units (unknown) date) curettage unknown) (unknown) (no (unknown) (unknown) HPI (units (unkno wn) date) unknown) (unknown) (no (unknown) (unknown) HPV in female (units ( unknown) date) unknown) (unknown) (no (unknown) (unknown) Health Management (units (unknown) date) reviewed with unknown) patient: Yes (unknown) (no (unknown) (unknown) Health Management (units (unknown) date) unknown) (unknown) (no (unknown) (unknown) Heartburn (units (unkn own) date) unknown) (unknown) (no (unknown) (unknown) Height 149.86 cm (units (unknown) date) unknown) (unknown) (no (unknown) (unknown) History of (units (unk nown) date) bladder surgery unknown) (unknown) (no (unknown) (unknown) History of breast (units (unknown) date) lump/mass excision unknown) (unknown) (no (unknown) (unknown) History of loop (units (unknown) date) electrical unknown) excision procedure (LEEP) (unknown) (no (unknown) (unknown) Hypertension (units (u nknown) date) unknown) (unknown) (no (unknown) (unknown) Intake Note: (units (u nknown) date) unknown) (unknown) (no (unknown) (unknown) Intake performed (units (unknown) date) by: Nanci Gloria unknown) M (unknown) (no (unknown) (unknown) Intake (units (unkno wn) date) unknown) (unknown) (no (unknown) (unknown) Intake- Clincial (units (unknown) date) Staff unknown) (unknown) (no (unknown) (unknown) LLQ abdominal (units ( unknown) date) pain unknown) (unknown) (no (unknown) (unknown) Last Menstural (units (unknown) date) Cycle + Details unknown) (unknown) (no (unknown) (unknown) Loc: [facility] (units (unkno wn) date) unknown) (unknown) (no (unknown) (unknown) Lymphadenopathy (units (unknown) date) unknown) (unknown) (no (unknown) (unknown) Medical History (units (unknown) date) (Reviewed 11/01/21 unknown) @ 10:42 by CHANDU Mclaughlin) (unknown) (no (unknown) (unknown) Medications (units (un known) date) unknown) (unknown) (no (unknown) (unknown) Medications: (units (u nknown) date) unknown) (unknown) (no (unknown) (unknown) Migraine (units (unkno wn) date) unknown) (unknown) (no (unknown) (unknown) Nausea (units (unkno wn) date) unknown) (unknown) (no (unknown) (unknown) New (units (unkno wn) date) unknown) (unknown) (no (unknown) (unknown) Orders (units (unkno wn) date) unknown) (unknown) (no (unknown) (unknown) Orders: (units (unkno wn) date) unknown) (unknown) (no (unknown) (unknown) Other Diabetes (units (unknown) date) mellitus unknown) (unknown) (no (unknown) (unknown) Other Menstrual (units (unknown) date) Period: Other unknown) (unknown) (no (unknown) (unknown) Oxygen Delivery (units (unknown) date) Method room air unknown) (unknown) (no (unknown) (unknown) PAP with hr HPV (units (unknown) date) 12/22/21 Z00.00 - unknown) Encounter for general adult medical (unknown) (no (unknown) (unknown) PFSH (units (unkno wn) date) unknown) (unknown) (no (unknown) (unknown) Patient also (units (u nknown) date) wanted to update unknown) me that she cut down and ultimately recently (unknown) (no (unknown) (unknown) Patient has a (units ( unknown) date) history of LEEP unknown) procedure. She has been told (unknown) (no (unknown) (unknown) Patient: (units (unkno wn) date) Elly Resendiz E unknown) MR#: [id number] (unknown) (no (unknown) (unknown) Pelvic pain in (units (unknown) date) female unknown) (unknown) (no (unknown) (unknown) Position Sitting (units (unknown) date) unknown) (unknown) (no (unknown) (unknown) Pulse 85 (units (unkno wn) date) unknown) (unknown) (no (unknown) (unknown) Pulse Oximetry (units (unknown) date) (%) 100 unknown) (unknown) (no (unknown) (unknown) Pulse Source (units (u nknown) date) Monitor unknown) (unknown) (no (unknown) (unknown) Pyelonephritis (units (unknown) date) unknown) (unknown) (no (unknown) (unknown) Reason For Visit (units (unknown) date) unknown) (unknown) (no (unknown) (unknown) Referral Vascular (units (unknown) date) Surgery [id number] - unknown) Varicose veins of right lower extremity (unknown) (no (unknown) (unknown) Referral of (units (un known) date) patient unknown) (unknown) (no (unknown) (unknown) Referrals (units (unkn own) date) unknown) (unknown) (no (unknown) (unknown) Respiration 16 (units (unknown) date) unknown) (unknown) (no (unknown) (unknown) Signed By: (units (unk nown) date) unknown) (unknown) (no (unknown) (unknown) Smoking Status: (units (unknown) date) Former smoker unknown) (unknown) (no (unknown) (unknown) Social History (units (unknown) date) unknown) (unknown) (no (unknown) (unknown) Surgical History (units (unknown) date) (Reviewed 11/01/21 unknown) @ 10:42 by CHANDU Mclaughlin) (unknown) (no (unknown) (unknown) Temp 98.5 F (units (un known) date) unknown) (unknown) (no (unknown) (unknown) Temp Source (units (un known) date) Temporal Artery unknown) Scan (unknown) (no (unknown) (unknown) This note may (units ( unknown) date) have been all or unknown) partially generated using voice recognition (unknown) (no (unknown) (unknown) Tobacco + (units (unkn own) date) Substance Use unknown) (unknown) (no (unknown) (unknown) Tobacco Status (units (unknown) date) unknown) (unknown) (no (unknown) (unknown) Today's visit was (units (unknown) date) originally unknown) intended as well-woman exam/Pap; however patient (unknown) (no (unknown) (unknown) Visit Reasons: (units (unknown) date) pap/wwe unknown) (unknown) (no (unknown) (unknown) Vitals (units (unkno wn) date) unknown) (unknown) (no (unknown) (unknown) WWE/PAP (units (unkno wn) date) unknown) (unknown) (no (unknown) (unknown) Weight 62.199 kg (units (unknown) date) unknown) (unknown) (no (unknown) (unknown) alcohol intake: (units (unknown) date) current unknown) (unknown) (no (unknown) (unknown) and address other (units (unknown) date) issues. unknown) (unknown) (no (unknown) (unknown) apply once weekly (units (unknown) date) for 3 weeks of a unknown) 4-week cycle 1 patch transdermal QWEEK 3 (unknown) (no (unknown) (unknown) changed. (units (unkno wn) date) unknown) (unknown) (no (unknown) (unknown) ea 1RF (units (unkno wn) date) unknown) (unknown) (no (unknown) (unknown) examination (units (un known) date) without abnormal unknown) findings, Z11.51 - Encounter for screening for (unknown) (no (unknown) (unknown) frequency of her (units (unknown) date) left side pain. unknown) The tingling along along the left side has not (unknown) (no (unknown) (unknown) had not realized (units (unknown) date) this and in unknown) addition did not have childcare available today and (unknown) (no (unknown) (unknown) has her 3 (units (unkn own) date) children with her unknown) so we agreed to reschedule that for another time. (unknown) (no (unknown) (unknown) have occurred. If (units (unknown) date) there are any unknown) questions, please contact the Medical Records (unknown) (no (unknown) (unknown) household (units (unkn own) date) members: unknown) significant other (unknown) (no (unknown) (unknown) human (units (unkno wn) date) papillomavirus unknown) (HPV), Z12.4 - Encounter for screening for malignant (unknown) (no (unknown) (unknown) hydrocodone [From (units (unknown) date) Vicodin] Adverse unknown) Reaction (Verified 12/22/21 09:24) (unknown) (no (unknown) (unknown) marital status: (units (unknown) date) unknown) (unknown) (no (unknown) (unknown) may occur. (units (unk nown) date) Occasional unknown) wrong-word or 'sound-alike' substitutions may have (unknown) (no (unknown) (unknown) most evenings (units ( unknown) date) with her . unknown) She 1st cut down to 22 oz, then for 1 week has (unknown) (no (unknown) (unknown) neoplasm of (units (un known) date) cervix unknown) (unknown) (no (unknown) (unknown) norelgestromin (units (unknown) date) 150 unknown) mcg-e.estradiol 35 mcg/24 hr weekly transderm patch (Xulane) (unknown) (no (unknown) (unknown) norelgestromin-et (units (unknown) date) hin.estradiol unknown) 150-35 mcg/24 hr (Xulane) (unknown) (no (unknown) (unknown) not been drinking (units (unknown) date) any alcohol. She unknown) does note a significant decrease in the (unknown) (no (unknown) (unknown) occurred due to (units (unknown) date) the inherent unknown) limitations of voice recognition software. Please (unknown) (no (unknown) (unknown) read the note (units ( unknown) date) carefully and unknown) recognize, using context, where these substitutions (unknown) (no (unknown) (unknown) software. (units (unkn own) date) Although every unknown) effort is made to edit content, medical hospital sales errors (unknown) (no (unknown) (unknown) stopped drinking (units (unknown) date) alcohol. She had unknown) been in the habit of drinking 44 oz of beer (unknown) (no (unknown) (unknown) substance use (units ( unknown) date) type: marijuana unknown) (unknown) (no (unknown) (unknown) with pain (units (unkn own) date) unknown) Result panel 74 (unknown) (no (unknown) (unknown) (no value) (units (unk nown) date) unknown) (unknown) (no (unknown) (unknown) (1) Varicose (units (u nknown) date) veins of right unknown) lower extremity with pain: (unknown) (no (unknown) (unknown) (2) History of (units (unknown) date) loop electrical unknown) excision procedure (LEEP): (unknown) (no (unknown) (unknown) (3) Well woman (units (unknown) date) exam with routine unknown) gynecological exam: (unknown) (no (unknown) (unknown) (4) Contraceptive (units (unknown) date) management: unknown) (unknown) (no (unknown) (unknown) (5) Alcohol (units (un known) date) intake above unknown) recommended sensible limits: (unknown) (no (unknown) (unknown) [id number] (units (unkno wn) date) unknown) (unknown) (no (unknown) (unknown) 09:24 (units (unkno wn) date) unknown) (unknown) (no (unknown) (unknown) 1 patch (units (unkno wn) date) transdermal QWEEK unknown) #3 ea 12/22/21 [Rx Confirmed 12/22/21] (unknown) (no (unknown) (unknown) 12/22/21 (units (unkno wn) date) unknown) (unknown) (no (unknown) (unknown) 36-year-old (units (un known) date) female presents unknown) for a well-woman exam/Pap as well as to follow-up (unknown) (no (unknown) (unknown) Accompanied by: (units (unknown) date) Self / Same As unknown) Patient (unknown) (no (unknown) (unknown) Age/Sex: 36 / F (units (unknown) date) Date of Service: unknown) (unknown) (no (unknown) (unknown) Allergies (units (unkn own) date) unknown) (unknown) (no (unknown) (unknown) [place], [place] (units ( unknown) date) [id number] unknown) (unknown) (no (unknown) (unknown) Assessment + Plan (units (unknown) date) unknown) (unknown) (no (unknown) (unknown) Attending Dr: (units ( unknown) date) Gurpreet SCHOFIELD unknown) (unknown) (no (unknown) (unknown) BMI 27.6 (units (unkno wn) date) unknown) (unknown) (no (unknown) (unknown) BP 104/56 L (units (un known) date) unknown) (unknown) (no (unknown) (unknown) Blood Pressure (units (unknown) date) Location Lt unknown) brachial (unknown) (no (unknown) (unknown) Bright red rectal (units (unknown) date) bleeding unknown) (unknown) (no (unknown) (unknown) C/O pain on outer (units (unknown) date) side of both unknown) breasts. 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 (unknown) (no (unknown) (unknown) Chest pain (units (unk nown) date) unknown) (unknown) (no (unknown) (unknown) Chief Complaint (units (unknown) date) unknown) (unknown) (no (unknown) (unknown) Chief Complaint: (units (unknown) date) Well-woman unknown) exam/Pap/multiple issues (unknown) (no (unknown) (unknown) Chlamydia (units (unkn own) date) unknown) (unknown) (no (unknown) (unknown) Costochondritis (units (unknown) date) unknown) (unknown) (no (unknown) (unknown) Current smoker (units (unknown) date) unknown) (unknown) (no (unknown) (unknown) Cyst of left (units (u nknown) date) ovary unknown) (unknown) (no (unknown) (unknown) : 1985 (units (unknown) date) Acct:[id number] unknown) (unknown) (no (unknown) (unknown) Date of Last (units (u nknown) date) Menstrual Period: unknown) 01/15/22 (unknown) (no (unknown) (unknown) Dept at (units (unkno wn) date) . unknown) (unknown) (no (unknown) (unknown) Details: (units (unkno wn) date) unknown) (unknown) (no (unknown) (unknown) Diarrhea (units (unkno wn) date) unknown) (unknown) (no (unknown) (unknown) Documented By: (units (unknown) date) Gurpreet Bal unknown) 12/22/21 0922 (unknown) (no (unknown) (unknown) Draft (units (unkno wn) date) unknown) (unknown) (no (unknown) (unknown) Dyspareunia (units (un known) date) unknown) (unknown) (no (unknown) (unknown) Ectopic breast (units (unknown) date) tissue (12/23/17) unknown) (unknown) (no (unknown) (unknown) Excessive flatus (units (unknown) date) unknown) (unknown) (no (unknown) (unknown) Family History (units (unknown) date) (Reviewed 11/01/21 unknown) @ 10:42 by CHANDU Mclaughlin) (unknown) (no (unknown) (unknown) Family Practice (units (unknown) date) Office Visit unknown) (unknown) (no (unknown) (unknown) [facility] (unknown) (no (unknown) (unknown) H/O dilation and (units (unknown) date) curettage unknown) (unknown) (no (unknown) (unknown) HPI (units (unkno wn) date) unknown) (unknown) (no (unknown) (unknown) HPV in female (units ( unknown) date) unknown) (unknown) (no (unknown) (unknown) Health Management (units (unknown) date) reviewed with unknown) patient: Yes (unknown) (no (unknown) (unknown) Health Management (units (unknown) date) unknown) (unknown) (no (unknown) (unknown) Heartburn (units (unkn own) date) unknown) (unknown) (no (unknown) (unknown) Height 149.86 cm (units (unknown) date) unknown) (unknown) (no (unknown) (unknown) History of (units (unk nown) date) bladder surgery unknown) (unknown) (no (unknown) (unknown) History of breast (units (unknown) date) lump/mass excision unknown) (unknown) (no (unknown) (unknown) History of loop (units (unknown) date) electrical unknown) excision procedure (LEEP) (unknown) (no (unknown) (unknown) Hypertension (units (u nknown) date) unknown) (unknown) (no (unknown) (unknown) Intake Note: (units (u nknown) date) unknown) (unknown) (no (unknown) (unknown) Intake performed (units (unknown) date) by: Nanci Gloria unknown) M (unknown) (no (unknown) (unknown) Intake (units (unkno wn) date) unknown) (unknown) (no (unknown) (unknown) Intake- Clincial (units (unknown) date) Staff unknown) (unknown) (no (unknown) (unknown) LLQ abdominal (units ( unknown) date) pain unknown) (unknown) (no (unknown) (unknown) Last Menstural (units (unknown) date) Cycle + Details unknown) (unknown) (no (unknown) (unknown) Loc: [facility] (units (unkno wn) date) unknown) (unknown) (no (unknown) (unknown) Lymphadenopathy (units (unknown) date) unknown) (unknown) (no (unknown) (unknown) Medical History (units (unknown) date) (Reviewed 11/01/21 unknown) @ 10:42 by CHANDU Mclaughlin) (unknown) (no (unknown) (unknown) Medications (units (un known) date) unknown) (unknown) (no (unknown) (unknown) Medications: (units (u nknown) date) unknown) (unknown) (no (unknown) (unknown) Migraine (units (unkno wn) date) unknown) (unknown) (no (unknown) (unknown) Nausea (units (unkno wn) date) unknown) (unknown) (no (unknown) (unknown) New (units (unkno wn) date) unknown) (unknown) (no (unknown) (unknown) Orders (units (unkno wn) date) unknown) (unknown) (no (unknown) (unknown) Orders: (units (unkno wn) date) unknown) (unknown) (no (unknown) (unknown) Other Diabetes (units (unknown) date) mellitus unknown) (unknown) (no (unknown) (unknown) Other Menstrual (units (unknown) date) Period: Other unknown) (unknown) (no (unknown) (unknown) Oxygen Delivery (units (unknown) date) Method room air unknown) (unknown) (no (unknown) (unknown) PAP with hr HPV (units (unknown) date) 12/22/21 Z00.00 - unknown) Encounter for general adult medical (unknown) (no (unknown) (unknown) PFSH (units (unkno wn) date) unknown) (unknown) (no (unknown) (unknown) Patient also notes (units (unknown) date) that she has unknown) varicose veins bilateral lower extremities, most (unknown) (no (unknown) (unknown) Patient has a (units ( unknown) date) history of LEEP unknown) procedure. She is currently on a schedule of (unknown) (no (unknown) (unknown) Patient is (units (unkn own) date) concerned about unknown) how much she is drinking alcohol and is trying to cut (unknown) (no (unknown) (unknown) Patient: (units (unkno wn) date) Elly Resendiz Solomon unknown) MR#: [id number] (unknown) (no (unknown) (unknown) Pelvic pain in (units (unknown) date) female unknown) (unknown) (no (unknown) (unknown) Position Sitting (units (unknown) date) unknown) (unknown) (no (unknown) (unknown) Pulse 85 (units (unkno wn) date) unknown) (unknown) (no (unknown) (unknown) Pulse Oximetry (units (unknown) date) (%) 100 unknown) (unknown) (no (unknown) (unknown) Pulse Source (units (u nknown) date) Monitor unknown) (unknown) (no (unknown) (unknown) Pyelonephritis (units (unknown) date) unknown) (unknown) (no (unknown) (unknown) Reason For Visit (units (unknown) date) unknown) (unknown) (no (unknown) (unknown) Referral Vascular (units (unknown) date) Surgery I83.811 - unknown) Varicose veins of right lower extremity (unknown) (no (unknown) (unknown) Referral of (units (un known) date) patient unknown) (unknown) (no (unknown) (unknown) Referrals (units (unkn own) date) unknown) (unknown) (no (unknown) (unknown) Respiration 16 (units (unknown) date) unknown) (unknown) (no (unknown) (unknown) She had been in (units (unknown) date) the habit of unknown) drinking 44 oz of beer most evenings with her (unknown) (no (unknown) (unknown) Signed By: (units (unk nown) date) unknown) (unknown) (no (unknown) (unknown) Smoking Status: (units (unknown) date) Former smoker unknown) (unknown) (no (unknown) (unknown) Social History (units (unknown) date) unknown) (unknown) (no (unknown) (unknown) Status: Acute (units ( unknown) date) unknown) (unknown) (no (unknown) (unknown) Surgical History (units (unknown) date) (Reviewed 11/01/21 unknown) @ 10:42 by CHANDU Mclaughlin) (unknown) (no (unknown) (unknown) Temp 98.5 F (units (un known) date) unknown) (unknown) (no (unknown) (unknown) Temp Source (units (un known) date) Temporal Artery unknown) Scan (unknown) (no (unknown) (unknown) This note may (units ( unknown) date) have been all or unknown) partially generated using voice recognition (unknown) (no (unknown) (unknown) Tobacco + (units (unkn own) date) Substance Use unknown) (unknown) (no (unknown) (unknown) Tobacco Status (units (unknown) date) unknown) (unknown) (no (unknown) (unknown) Visit Reasons: (units (unknown) date) pap/wwe unknown) (unknown) (no (unknown) (unknown) Vitals (units (unkno wn) date) unknown) (unknown) (no (unknown) (unknown) WWE/PAP (units (unkno wn) date) unknown) (unknown) (no (unknown) (unknown) Weight 62.199 kg (units (unknown) date) unknown) (unknown) (no (unknown) (unknown) about once a (units (u nknown) date) month she does unknown) binge drink to excess. She does not drink during (unknown) (no (unknown) (unknown) alcohol intake: (units (unknown) date) current unknown) (unknown) (no (unknown) (unknown) and address other (units (unknown) date) issues. unknown) (unknown) (no (unknown) (unknown) apply once weekly (units (unknown) date) for 3 weeks of a unknown) 4-week cycle 1 patch transdermal QWEEK 3 (unknown) (no (unknown) (unknown) care for her (units (u nknown) date) children. She has unknown) considered going to AA meetings but her (unknown) (no (unknown) (unknown) deliveries. (units (un known) date) Patient is unknown) currently not using any contraception regularly. She (unknown) (no (unknown) (unknown) down on her (units (un known) date) drinking. She has unknown) been successful in cutting down somewhat. (unknown) (no (unknown) (unknown) ea 1RF (units (unkno wn) date) unknown) (unknown) (no (unknown) (unknown) examination (units (un known) date) without abnormal unknown) findings, Z11.51 - Encounter for screening for (unknown) (no (unknown) (unknown) fairly regular. (units (unknown) date) No bleeding unknown) between menses. No other gynecological symptoms. (unknown) (no (unknown) (unknown) feels this is not (units (unknown) date) appropriate and unknown) has discouraged her from doing this. (unknown) (no (unknown) (unknown) getting Pap/HPV (units (unknown) date) testing every 6 unknown) months; however she is overdue as her last Pap (unknown) (no (unknown) (unknown) have occurred. If (units (unknown) date) there are any unknown) questions, please contact the Medical Records (unknown) (no (unknown) (unknown) household (units (unkn own) date) members: unknown) significant other (unknown) (no (unknown) (unknown) human (units (unkno wn) date) papillomavirus unknown) (HPV), Z12.4 - Encounter for screening for malignant (unknown) (no (unknown) (unknown) . She has (units (unknown) date) cut down to 22 oz unknown) most evenings. However she states that (unknown) (no (unknown) (unknown) hydrocodone [From (units (unknown) date) Vicodin] Adverse unknown) Reaction (Verified 12/22/21 09:24) (unknown) (no (unknown) (unknown) marital status: (units (unknown) date) unknown) (unknown) (no (unknown) (unknown) may occur. 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 She does have pain associated with (unknown) (no (unknown) (unknown) occurred due to (units (unknown) date) the inherent unknown) limitations of voice recognition software. Please (unknown) (no (unknown) (unknown) of when (units (unknown) date) she was 20 years unknown) old and 3 living children, all vaginal (unknown) (no (unknown) (unknown) read the note (units ( unknown) date) carefully and unknown) recognize, using context, where these substitutions (unknown) (no (unknown) (unknown) software. (units (unkn own) date) Although every unknown) effort is made to edit content, medical hospital sales errors (unknown) (no (unknown) (unknown) substance use (units ( unknown) date) type: marijuana unknown) (unknown) (no (unknown) (unknown) the day, and does (units (unknown) date) not drink in a unknown) manner in which this affects her ability to (unknown) (no (unknown) (unknown) this varicosity. (units (unknown) date) She has tried unknown) knee-high compression hose but these do not help (unknown) (no (unknown) (unknown) too much as a (units ( unknown) date) significant unknown) portion of the varicosity is in the posterior thigh. (unknown) (no (unknown) (unknown) was October 01, (units (u nknown) date) 2020. Patient has unknown) had 4 pregnancies including elective termination (unknown) (no (unknown) (unknown) with pain (units (unkn own) date) unknown) (unknown) (no (unknown) (unknown) would like to (units ( unknown) date) have contraception unknown) ordered for her. Overall her menses has been Result panel 75 (unknown) (no (unknown) (unknown) (no value) (units (unk nown) date) unknown) (unknown) (no (unknown) (unknown) (1) Well woman (units (unknown) date) exam with routine unknown) gynecological exam: (unknown) (no (unknown) (unknown) (2) History of (units (unknown) date) loop electrical unknown) excision procedure (LEEP): (unknown) (no (unknown) (unknown) (3) Alcohol (units (un known) date) intake above unknown) recommended sensible limits: (unknown) (no (unknown) (unknown) (4) Varicose (units (u nknown) date) veins of right unknown) lower extremity with pain: (unknown) (no (unknown) (unknown) (5) Contraceptive (units (unknown) date) management: unknown) (unknown) (no (unknown) (unknown) (6) Alcohol abuse (units (unknown) date) counseling and unknown) surveillance: (unknown) (no (unknown) (unknown) [id number] (units (unkno wn) date) unknown) (unknown) (no (unknown) (unknown) 09:24 (units (unkno wn) date) unknown) (unknown) (no (unknown) (unknown) 1 patch (units (unkno wn) date) transdermal QWEEK unknown) #3 ea 12/22/21 [Rx Confirmed 12/22/21] (unknown) (no (unknown) (unknown) 12/22/21 (units (unkno wn) date) unknown) (unknown) (no (unknown) (unknown) 12/26/21 1142 (units ( unknown) date) unknown) (unknown) (no (unknown) (unknown) 36-year-old (units (un known) date) female presents unknown) for a well-woman exam/Pap as well as to follow-up (unknown) (no (unknown) (unknown) Accompanied by: (units (unknown) date) Self / Same As unknown) Patient (unknown) (no (unknown) (unknown) Affect: normal (units (unknown) date) affect unknown) (unknown) (no (unknown) (unknown) Age/Sex: 36 / F (units (unknown) date) Date of Service: unknown) (unknown) (no (unknown) (unknown) Alcohol intake (units (unknown) date) above recommended unknown) limits: Long discussion with patient regarding (unknown) (no (unknown) (unknown) All systems (units (un known) date) reviewed + are unknown) unremarkable except as noted in HPI and below (unknown) (no (unknown) (unknown) Allergies (units (unkn own) date) unknown) (unknown) (no (unknown) (unknown) [place], [place] (units ( unknown) date) [id number] unknown) (unknown) (no (unknown) (unknown) Appearance: (units (un known) date) grossly normal unknown) (unknown) (no (unknown) (unknown) Assessment + Plan (units (unknown) date) unknown) (unknown) (no (unknown) (unknown) Attending Dr: (units ( unknown) date) Gurpreet SCHOFIELD unknown) (unknown) (no (unknown) (unknown) Attitude: (units (unkn own) date) cooperative unknown) (unknown) (no (unknown) (unknown) Auscultation: (units ( unknown) date) clear to unknown) auscultation bilaterally (unknown) (no (unknown) (unknown) Auscultation: (units ( unknown) date) normal bowel unknown) sounds (unknown) (no (unknown) (unknown) BMI 27.6 (units (unkno wn) date) unknown) (unknown) (no (unknown) (unknown) BP 104/56 L (units (un known) date) unknown) (unknown) (no (unknown) (unknown) Bimanual Exam- (units (unknown) date) Adnexa, other: unknown) normal adnexae, normal and non-tender (unknown) (no (unknown) (unknown) Bimanual Exam- (units (unknown) date) Vagina + Uterus: unknown) normal bimanual exam, normal palpation, uterine (unknown) (no (unknown) (unknown) Blood Pressure (units (unknown) date) Location Lt unknown) brachial (unknown) (no (unknown) (unknown) Breast inspection: (units (unknown) date) normal inspection unknown) of the breasts and normal inspection of the (unknown) (no (unknown) (unknown) Breast palpation: (units (unknown) date) normal palpation unknown) of the breasts, normal palpation of the (unknown) (no (unknown) (unknown) Bright red rectal (units (unknown) date) bleeding unknown) (unknown) (no (unknown) (unknown) C/O pain on outer (units (unknown) date) side of both unknown) breasts. 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 (unknown) (no (unknown) (unknown) Cardio (units (unkno wn) date) unknown) (unknown) (no (unknown) (unknown) Chest pain (units (unk nown) date) unknown) (unknown) (no (unknown) (unknown) Chest (units (unkno wn) date) unknown) (unknown) (no (unknown) (unknown) Chief Complaint (units (unknown) date) unknown) (unknown) (no (unknown) (unknown) Chief Complaint: (units (unknown) date) Well-woman unknown) exam/Pap/multiple issues (unknown) (no (unknown) (unknown) Chlamydia (units (unkn own) date) unknown) (unknown) (no (unknown) (unknown) Cognition: normal (units (unknown) date) cognition unknown) (unknown) (no (unknown) (unknown) Const (units (unkno wn) date) unknown) (unknown) (no (unknown) (unknown) Contraceptive (units ( unknown) date) encounter type: unknown) initial prescription Contraceptive type: (unknown) (no (unknown) (unknown) Contraceptive (units ( unknown) date) management: We unknown) discussed options and while patient did initially (unknown) (no (unknown) (unknown) Costochondritis (units (unknown) date) unknown) (unknown) (no (unknown) (unknown) Counseled patient (units (unknown) date) to trial unknown) thigh-high compression stockings. Advised continue (unknown) (no (unknown) (unknown) Current smoker (units (unknown) date) unknown) (unknown) (no (unknown) (unknown) Cyst of left (units (u nknown) date) ovary unknown) (unknown) (no (unknown) (unknown) : 1985 (units (unknown) date) Acct:[id number] unknown) (unknown) (no (unknown) (unknown) Date of Last (units (u nknown) date) Menstrual Period: unknown) 01/15/22 (unknown) (no (unknown) (unknown) Denies breast (units ( unknown) date) skin changes, unknown) Denies breast pain, Denies breast mass and Denies (unknown) (no (unknown) (unknown) Denies (units (unkno wn) date) metrorrhagia, unknown) Denies genital lesions, Denies nipple discharge, Denies (unknown) (no (unknown) (unknown) Denies vaginal (units (unknown) date) odor unknown) (unknown) (no (unknown) (unknown) Dept at (units (unkno wn) date) . unknown) (unknown) (no (unknown) (unknown) Details: (units (unkno wn) date) unknown) (unknown) (no (unknown) (unknown) Diarrhea (units (unkno wn) date) unknown) (unknown) (no (unknown) (unknown) Documented By: (units (unknown) date) Gurpreet Bal unknown) 12/22/21 0922 (unknown) (no (unknown) (unknown) Dyspareunia (units (un known) date) unknown) (unknown) (no (unknown) (unknown) Ears: hearing (units ( unknown) date) grossly normal unknown) bilaterally, TM's normal bilaterally and EAC's (unknown) (no (unknown) (unknown) Ectopic breast (units (unknown) date) tissue (12/23/17) unknown) (unknown) (no (unknown) (unknown) Effort + (units (unkno wn) date) Inspection: normal unknown) respiratory effort (unknown) (no (unknown) (unknown) Exam (units (unkno wn) date) unknown) (unknown) (no (unknown) (unknown) Excessive flatus (units (unknown) date) unknown) (unknown) (no (unknown) (unknown) External Female (units (unknown) date) Exam: normal unknown) external appearance (unknown) (no (unknown) (unknown) Extrem (units (unkno wn) date) unknown) (unknown) (no (unknown) (unknown) Eyes (units (unkno wn) date) unknown) (unknown) (no (unknown) (unknown) Family History (units (unknown) date) (Reviewed 12/26/21 unknown) @ 11:30 by CHANDU Mclaughlin) (unknown) (no (unknown) (unknown) Family Practice (units (unknown) date) Office Visit unknown) (unknown) (no (unknown) (unknown) [facility] (unknown) (no (unknown) (unknown) GI (units (unkno wn) date) unknown) (unknown) (no (unknown) (unknown) (units (unkno wn) date) unknown) (unknown) (no (unknown) (unknown) Gait: normal gait (units (unknown) date) unknown) (unknown) (no (unknown) (unknown) General: (units (unkno wn) date) appearance normal, unknown) both eyes and all related structures (unknown) (no (unknown) (unknown) General: (units (o wn) date) cooperative, unknown) healthy appearing and no acute distress (unknown) (no (unknown) (unknown) General: full ROM (units (unknown) date) and no edema unknown) (unknown) (no (unknown) (unknown) General: no (units (un known) date) rashes or lesions unknown) noted (unknown) (no (unknown) (unknown) General: patient (units (unknown) date) alert, patient unknown) awake and patient oriented x3 (unknown) (no (unknown) (unknown) H/O dilation and (units (unknown) date) curettage unknown) (unknown) (no (unknown) (unknown) HENMT (units (unkno wn) date) unknown) (unknown) (no (unknown) (unknown) HPI (units (unkno wn) date) unknown) (unknown) (no (unknown) (unknown) HPV in female (units ( unknown) date) unknown) (unknown) (no (unknown) (unknown) Head: normal to (units (unknown) date) inspection unknown) (unknown) (no (unknown) (unknown) Health Management (units (unknown) date) reviewed with unknown) patient: Yes (unknown) (no (unknown) (unknown) Health Management (units (unknown) date) unknown) (unknown) (no (unknown) (unknown) Heart Sounds: S1 (units (unknown) date) normal, S2 normal, unknown) normal S1 and S2 and no murmurs (unknown) (no (unknown) (unknown) Heartburn (units (unkn own) date) unknown) (unknown) (no (unknown) (unknown) Height 149.86 cm (units (unknown) date) unknown) (unknown) (no (unknown) (unknown) History of (units (unk nown) date) bladder surgery unknown) (unknown) (no (unknown) (unknown) History of breast (units (unknown) date) lump/mass excision unknown) (unknown) (no (unknown) (unknown) History of loop (units (unknown) date) electrical unknown) excision procedure (LEEP) (unknown) (no (unknown) (unknown) Hypertension (units (u nknown) date) unknown) (unknown) (no (unknown) (unknown) Inspection: (units (un known) date) normal to unknown) inspection (unknown) (no (unknown) (unknown) Intake Note: (units (u nknown) date) unknown) (unknown) (no (unknown) (unknown) Intake performed (units (unknown) date) by: Nanci Gloria unknown) M (unknown) (no (unknown) (unknown) Intake (units (unkno wn) date) unknown) (unknown) (no (unknown) (unknown) Intake- Clincial (units (unknown) date) Staff unknown) (unknown) (no (unknown) (unknown) Judgment: (units (unkn own) date) judgment good unknown) (unknown) (no (unknown) (unknown) LLQ abdominal (units ( unknown) date) pain unknown) (unknown) (no (unknown) (unknown) Last Menstural (units (unknown) date) Cycle + Details unknown) (unknown) (no (unknown) (unknown) Left lower (units (unk nown) date) extremity: unknown) Nontender varicosity extending from distal aspect of the (unknown) (no (unknown) (unknown) Loc: [facility] (units (unkno wn) date) unknown) (unknown) (no (unknown) (unknown) Lymphadenopathy (units (unknown) date) unknown) (unknown) (no (unknown) (unknown) Medical History (units (unknown) date) (Reviewed 12/26/21 unknown) @ 11:30 by CHANDU Mclaughlin) (unknown) (no (unknown) (unknown) Medications (units (un known) date) unknown) (unknown) (no (unknown) (unknown) Medications: (units (u nknown) date) unknown) (unknown) (no (unknown) (unknown) Mental Status: (units (unknown) date) mental status unknown) grossly normal (unknown) (no (unknown) (unknown) Migraine (units (unkno wn) date) unknown) (unknown) (no (unknown) (unknown) Mood: congruent (units (unknown) date) mood unknown) (unknown) (no (unknown) (unknown) Motor: muscle (units ( unknown) date) tone normal unknown) throughout (unknown) (no (unknown) (unknown) Mouth: oral (units (un known) date) mucosae normal and unknown) oropharynx normal (unknown) (no (unknown) (unknown) Nausea (units (unkno wn) date) unknown) (unknown) (no (unknown) (unknown) Neck mass: No (units ( unknown) date) unknown) (unknown) (no (unknown) (unknown) Neck (units (unkno wn) date) unknown) (unknown) (no (unknown) (unknown) Neck: normal (units (u nknown) date) visual inspection unknown) and no lymphadenopathy (unknown) (no (unknown) (unknown) Neuro (units (unkno wn) date) unknown) (unknown) (no (unknown) (unknown) New (units (unkno wn) date) unknown) (unknown) (no (unknown) (unknown) No (units (unkno wn) date) supraclavicular or unknown) infraclavicular lymphadenopathy. (unknown) (no (unknown) (unknown) Nose: external (units (unknown) date) nose normal and unknown) nasal mucous membranes and turbinates normal (unknown) (no (unknown) (unknown) Nutritional (units (un known) date) Appearance: unknown) average body habitus (unknown) (no (unknown) (unknown) Orders (units (unkno wn) date) unknown) (unknown) (no (unknown) (unknown) Orders: (units (unkno wn) date) unknown) (unknown) (no (unknown) (unknown) Other Diabetes (units (unknown) date) mellitus unknown) (unknown) (no (unknown) (unknown) Other Menstrual (units (unknown) date) Period: Other unknown) (unknown) (no (unknown) (unknown) Other: (units (unkno wn) date) unknown) (unknown) (no (unknown) (unknown) Oxygen Delivery (units (unknown) date) Method room air unknown) (unknown) (no (unknown) (unknown) PAP with hr HPV (units (unknown) date) 12/22/21 Z00.00 - unknown) Encounter for general adult medical (unknown) (no (unknown) (unknown) PFSH (units (unkno wn) date) unknown) (unknown) (no (unknown) (unknown) Palpation: soft, (units (unknown) date) no unknown) hepatosplenomegaly , no guarding, no hernias, no masses and (unknown) (no (unknown) (unknown) Patient also notes (units (unknown) date) that she has unknown) varicose veins bilateral lower extremities, most (unknown) (no (unknown) (unknown) Patient has a (units ( unknown) date) history of LEEP unknown) procedure. She is currently on a schedule of (unknown) (no (unknown) (unknown) Patient is (units (unkn own) date) concerned about unknown) how much she is drinking alcohol and is trying to cut (unknown) (no (unknown) (unknown) Patient: (units (unkno wn) date) Elly Resendiz E unknown) MR#: [id number] (unknown) (no (unknown) (unknown) Pelvic Support: (units (unknown) date) normal unknown) (unknown) (no (unknown) (unknown) Pelvic exam and (units (unknown) date) clinical breast unknown) exam unremarkable. General physical exam (unknown) (no (unknown) (unknown) Pelvic pain in (units (unknown) date) female unknown) (unknown) (no (unknown) (unknown) Percussion: (units (un known) date) normal to unknown) percussion (unknown) (no (unknown) (unknown) Plan (units (unkno wn) date) unknown) (unknown) (no (unknown) (unknown) Position Sitting (units (unknown) date) unknown) (unknown) (no (unknown) (unknown) Psych (units (unkno wn) date) unknown) (unknown) (no (unknown) (unknown) Pulse 85 (units (unkno wn) date) unknown) (unknown) (no (unknown) (unknown) Pulse Oximetry (units (unknown) date) (%) 100 unknown) (unknown) (no (unknown) (unknown) Pulse Source (units (u nknown) date) Monitor unknown) (unknown) (no (unknown) (unknown) Pyelonephritis (units (unknown) date) unknown) (unknown) (no (unknown) (unknown) Qualifiers: (units (un known) date) unknown) (unknown) (no (unknown) (unknown) ROS (units (unkno wn) date) unknown) (unknown) (no (unknown) (unknown) Rate: regular (units ( unknown) date) rate unknown) (unknown) (no (unknown) (unknown) Reason For Visit (units (unknown) date) unknown) (unknown) (no (unknown) (unknown) Referral Vascular (units (unknown) date) Surgery I83.811 - unknown) Varicose veins of right lower extremity (unknown) (no (unknown) (unknown) Referral of (units (un known) date) patient unknown) (unknown) (no (unknown) (unknown) Referrals (units (unkn own) date) unknown) (unknown) (no (unknown) (unknown) Reports as per (units (unknown) date) HPI, Denies unknown) abnormal menses, Denies abnormal vaginal bleeding, (unknown) (no (unknown) (unknown) Resp (units (unkno wn) date) unknown) (unknown) (no (unknown) (unknown) Respiration 16 (units (unknown) date) unknown) (unknown) (no (unknown) (unknown) Rhythm: regular (units (unknown) date) rhythm unknown) (unknown) (no (unknown) (unknown) Right lower (units (un known) date) extremity: Large unknown) tender varicosity extending from midportion of (unknown) (no (unknown) (unknown) Sensory Exam: no (units (unknown) date) sensory deficits unknown) noted (unknown) (no (unknown) (unknown) She had been in (units (unknown) date) the habit of unknown) drinking 44 oz of beer most evenings with her (unknown) (no (unknown) (unknown) Signed By: (units (unk nown) date) <Electronically unknown) signed by Gurpreet Bal> (unknown) (no (unknown) (unknown) Signed (units (unkno wn) date) unknown) (unknown) (no (unknown) (unknown) Skin (units (unkno wn) date) unknown) (unknown) (no (unknown) (unknown) Skin/Breast (units (un known) date) unknown) (unknown) (no (unknown) (unknown) Smoking Status: (units (unknown) date) Former smoker unknown) (unknown) (no (unknown) (unknown) Social History (units (unknown) date) unknown) (unknown) (no (unknown) (unknown) Speculum Exam - (units (unknown) date) Cervix: normal unknown) appearance of the cervix (unknown) (no (unknown) (unknown) Speculum Exam - (units (unknown) date) Vagina: normal unknown) appearance of the vagina and normal vaginal (unknown) (no (unknown) (unknown) Speech: speech (units (unknown) date) normal unknown) (unknown) (no (unknown) (unknown) Status: Acute (units ( unknown) date) unknown) (unknown) (no (unknown) (unknown) Surgical History (units (unknown) date) (Reviewed 12/26/21 unknown) @ 11:30 by CHANDU Mclaughlin) (unknown) (no (unknown) (unknown) Temp 98.5 F (units (un known) date) unknown) (unknown) (no (unknown) (unknown) Temp Source (units (un known) date) Temporal Artery unknown) Scan (unknown) (no (unknown) (unknown) This note may (units ( unknown) date) have been all or unknown) partially generated using voice recognition (unknown) (no (unknown) (unknown) Thought Content: (units (unknown) date) normal unknown) (unknown) (no (unknown) (unknown) Thought Process: (units (unknown) date) normal unknown) (unknown) (no (unknown) (unknown) Throat: posterior (units (unknown) date) oropharynx normal unknown) (unknown) (no (unknown) (unknown) Thyroid: thyroid (units (unknown) date) normal unknown) (unknown) (no (unknown) (unknown) Tobacco + (units (unkn own) date) Substance Use unknown) (unknown) (no (unknown) (unknown) Tobacco Status (units (unknown) date) unknown) (unknown) (no (unknown) (unknown) VTE/hypertension/ (units (unknown) date) CAD/CVA/cancers/th unknown) rombogenic mutation. Patient no longer (unknown) (no (unknown) (unknown) Varicose veins (units (unknown) date) with associated unknown) pain: We agreed to referral to vascular surgery. (unknown) (no (unknown) (unknown) Visit Reasons: (units (unknown) date) pap/wwe unknown) (unknown) (no (unknown) (unknown) Vitals (units (unkno wn) date) unknown) (unknown) (no (unknown) (unknown) WWE/PAP (units (unkno wn) date) unknown) (unknown) (no (unknown) (unknown) Weight 62.199 kg (units (unknown) date) unknown) (unknown) (no (unknown) (unknown) about once a (units (u nknown) date) month she does unknown) binge drink to excess. She does not drink during (unknown) (no (unknown) (unknown) alcohol intake: (units (unknown) date) current unknown) (unknown) (no (unknown) (unknown) and address other (units (unknown) date) issues. unknown) (unknown) (no (unknown) (unknown) apply once weekly (units (unknown) date) for 3 weeks of a unknown) 4-week cycle 1 patch transdermal QWEEK 3 (unknown) (no (unknown) (unknown) axillae and no (units (unknown) date) axillary unknown) lymphadenopathy (unknown) (no (unknown) (unknown) axillae (units (unkno wn) date) unknown) (unknown) (no (unknown) (unknown) care for her (units (u nknown) date) children. She has unknown) considered going to AA meetings but her (unknown) (no (unknown) (unknown) consider IUD, she (units (unknown) date) would like to try unknown) the patch at this time. No history of (unknown) (no (unknown) (unknown) deliveries. (units (un known) date) Patient is unknown) currently not using any contraception regularly. She (unknown) (no (unknown) (unknown) discharge (units (unkn own) date) unknown) (unknown) (no (unknown) (unknown) discussed options (units (unknown) date) for psychotherapy unknown) or outpatient programs which address (unknown) (no (unknown) (unknown) down on her (units (un known) date) drinking. She has unknown) been successful in cutting down somewhat. (unknown) (no (unknown) (unknown) ea 1RF (units (unkno wn) date) unknown) (unknown) (no (unknown) (unknown) even if she is (units (unknown) date) not drinking in unknown) the quantities that some AA members do. We also (unknown) (no (unknown) (unknown) examination (units (un known) date) without abnormal unknown) findings, Z11.51 - Encounter for screening for (unknown) (no (unknown) (unknown) excessive alcohol (units (unknown) date) intake. Patient unknown) plans to talk with her again about (unknown) (no (unknown) (unknown) fairly regular. (units (unknown) date) No bleeding unknown) between menses. No other gynecological symptoms. (unknown) (no (unknown) (unknown) feels this is not (units (unknown) date) appropriate and unknown) has discouraged her from doing this. (unknown) (no (unknown) (unknown) getting Pap/HPV (units (unknown) date) testing every 6 unknown) months; however she is overdue as her last Pap (unknown) (no (unknown) (unknown) have occurred. If (units (unknown) date) there are any unknown) questions, please contact the Medical Records (unknown) (no (unknown) (unknown) her concerns and (units (unknown) date) reconsider unknown) attending AA meetings. Encouraged her to follow-up (unknown) (no (unknown) (unknown) household (units (unkn own) date) members: unknown) significant other (unknown) (no (unknown) (unknown) human (units (unkno wn) date) papillomavirus unknown) (HPV), Z12.4 - Encounter for screening for malignant (unknown) (no (unknown) (unknown) . She has (units (unknown) date) cut down to 22 oz unknown) most evenings. However she states that (unknown) (no (unknown) (unknown) hydrocodone [From (units (unknown) date) Vicodin] Adverse unknown) Reaction (Verified 12/22/21 09:24) (unknown) (no (unknown) (unknown) left posterior (units (unknown) date) thigh to proximal unknown) aspect of the calf. (unknown) (no (unknown) (unknown) marital status: (units (unknown) date) unknown) (unknown) (no (unknown) (unknown) may occur. (units (unk nown) date) Occasional unknown) wrong-word or 'sound-alike' substitutions may have (unknown) (no (unknown) (unknown) medication. (units (un known) date) unknown) (unknown) (no (unknown) (unknown) neoplasm of (units (un known) date) cervix unknown) (unknown) (no (unknown) (unknown) nipple discharge (units (unknown) date) unknown) (unknown) (no (unknown) (unknown) nontender (units (unkn own) date) unknown) (unknown) (no (unknown) (unknown) norelgestromin (units (unknown) date) 150 unknown) mcg-e.estradiol 35 mcg/24 hr weekly transderm patch (Xulane) (unknown) (no (unknown) (unknown) norelgestromin-et (units (unknown) date) hin.estradiol unknown) 150-35 mcg/24 hr (Xulane) (unknown) (no (unknown) (unknown) normal (units (unkno wn) date) unknown) (unknown) (no (unknown) (unknown) notably right (units ( unknown) date) lower extremity unknown) posteriorly. She does have pain associated with (unknown) (no (unknown) (unknown) occurred due to (units (unknown) date) the inherent unknown) limitations of voice recognition software. Please (unknown) (no (unknown) (unknown) of when (units (unknown) date) she was 20 years unknown) old and 3 living children, all vaginal (unknown) (no (unknown) (unknown) patient with (units (u nknown) date) results and unknown) recommendations. (unknown) (no (unknown) (unknown) prescription of (units (unknown) date) transdermal patch unknown) hormonal contraceptive device (unknown) (no (unknown) (unknown) prolapse (units (unkno wn) date) symptoms, Denies unknown) sexual dysfunction, Denies vaginal discharge and (unknown) (no (unknown) (unknown) read the note (units ( unknown) date) carefully and unknown) recognize, using context, where these substitutions (unknown) (no (unknown) (unknown) regular exercise, (units (unknown) date) avoid prolonged unknown) standing. (unknown) (no (unknown) (unknown) remarkable only (units (unknown) date) for varicosities unknown) as described. Pap performed; will contact (unknown) (no (unknown) (unknown) right posterior (units (unknown) date) thigh to upper 3rd unknown) of calf. No associated erythema. (unknown) (no (unknown) (unknown) size normal, (units (u nknown) date) consistency unknown) normal, normal palpation, uterine mobility normal, (unknown) (no (unknown) (unknown) smokes (units (unkno wn) date) cigarettes. unknown) Counseled on administration/ris ks/benefits/side effects of (unknown) (no (unknown) (unknown) software. (units (unkn own) date) Although every unknown) effort is made to edit content, medical hospital sales errors (unknown) (no (unknown) (unknown) substance use (units ( unknown) date) type: marijuana unknown) (unknown) (no (unknown) (unknown) the day, and does (units (unknown) date) not drink in a unknown) manner in which this affects her ability to (unknown) (no (unknown) (unknown) the risks of (units (u nknown) date) excessive alcohol unknown) intake and strategies for trying to cut down, (unknown) (no (unknown) (unknown) this varicosity. (units (unknown) date) She has tried unknown) knee-high compression hose but these do not help (unknown) (no (unknown) (unknown) too much as a (units ( unknown) date) significant unknown) portion of the varicosity is in the posterior thigh. (unknown) (no (unknown) (unknown) transdermal patch (units (unknown) date) Qualified Code(s): unknown) Z30.016 - Encounter for initial (unknown) (no (unknown) (unknown) uterine shape (units ( unknown) date) normal and unknown) non-tender (unknown) (no (unknown) (unknown) was October 01, (units (u nknown) date) 2020. Patient has unknown) had 4 pregnancies including elective termination (unknown) (no (unknown) (unknown) which she herself (units (unknown) date) does wish to do. I unknown) did advise that she attend AA meetings (unknown) (no (unknown) (unknown) with pain (units (unkn own) date) unknown) (unknown) (no (unknown) (unknown) with us if she (units (unknown) date) has any needs. unknown) (unknown) (no (unknown) (unknown) would like to (units ( unknown) date) have contraception unknown) ordered for her. Overall her menses has been Result panel 76 (unknown) (no (unknown) (unknown) (no value) (units (unk nown) date) unknown) (unknown) (no (unknown) (unknown) [id number] (units (unkno wn) date) unknown) (unknown) (no (unknown) (unknown) 1 patch (units (unkno wn) date) transdermal QWEEK unknown) #3 ea 12/22/21 [Rx Confirmed 02/03/22] (unknown) (no (unknown) (unknown) 02/03/22 (units (unkno wn) date) unknown) (unknown) (no (unknown) (unknown) 14:22 (units (unkno wn) date) unknown) (unknown) (no (unknown) (unknown) 14:31 (units (unkno wn) date) unknown) (unknown) (no (unknown) (unknown) 14:39) (units (unkno wn) date) unknown) (unknown) (no (unknown) (unknown) 36 year old (units (un known) date) female presents to unknown) clinic for abdominal pain x 2 years. (unknown) (no (unknown) (unknown) Age/Sex: 36 / F (units (unknown) date) Date of Service: unknown) (unknown) (no (unknown) (unknown) Allergies (units (unkn own) date) unknown) (unknown) (no (unknown) (unknown) Allergies: (units (unk nown) date) Reviewed unknown) (unknown) (no (unknown) (unknown) [place] (units ( unknown) date) [id number] unknown) (unknown) (no (unknown) (unknown) Assessment + Plan (units (unknown) date) unknown) (unknown) (no (unknown) (unknown) Attending Dr: Mey (units (unknown) date) Latanya Cantu unknown) (unknown) (no (unknown) (unknown) BP 108/72 (units (unkn own) date) unknown) (unknown) (no (unknown) (unknown) Blood Pressure (units (unknown) date) Location Lt unknown) brachial (unknown) (no (unknown) (unknown) Bright red rectal (units (unknown) date) bleeding unknown) 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 unknown) (unknown) (no (unknown) (unknown) Chest pain (units (unk nown) date) unknown) (unknown) (no (unknown) (unknown) Chief Complaint: (units (unknown) date) abd pain unknown) (unknown) (no (unknown) (unknown) Chlamydia (units (unkn own) date) unknown) (unknown) (no (unknown) (unknown) Constitutional: (units (unknown) date) Negative.? unknown) (unknown) (no (unknown) (unknown) Costochondritis (units (unknown) date) unknown) (unknown) (no (unknown) (unknown) Current smoker (units (unknown) date) unknown) (unknown) (no (unknown) (unknown) Cyst of left (units (u nknown) date) ovary unknown) (unknown) (no (unknown) (unknown) : 1985 (units (unknown) date) Acct:[id number] unknown) (unknown) (no (unknown) (unknown) Dept at (units (unkno wn) date) . unknown) (unknown) (no (unknown) (unknown) Diarrhea (units (unkno wn) date) unknown) (unknown) (no (unknown) (unknown) Documented By: (units (unknown) date) Mey Pelaez unknown) 02/03/22 0927 (unknown) (no (unknown) (unknown) Draft (units (unkno wn) date) unknown) (unknown) (no (unknown) (unknown) Dyspareunia (units (un known) date) unknown) (unknown) (no (unknown) (unknown) Ectopic breast (units (unknown) date) tissue (12/23/17) unknown) (unknown) (no (unknown) (unknown) Endocrine: (units (unk nown) date) Negative.? unknown) (unknown) (no (unknown) (unknown) Excessive flatus (units (unknown) date) unknown) (unknown) (no (unknown) (unknown) Family History (units (unknown) date) (Reviewed 12/26/21 unknown) @ 11:30 by CHANDU Mclaughlin) (unknown) (no (unknown) (unknown) Family Practice (units (unknown) date) Office Visit unknown) (unknown) (no (unknown) (unknown) [facility] (unknown) (no (unknown) (unknown) Gastrointestinal: (units (unknown) date) Negative.? unknown) (unknown) (no (unknown) (unknown) Genitourinary: (units (unknown) date) Negative.? unknown) (unknown) (no (unknown) (unknown) H/O dilation and (units (unknown) date) curettage unknown) (unknown) (no (unknown) (unknown) HPV in female (units ( unknown) date) unknown) (unknown) (no (unknown) (unknown) Health Management (units (unknown) date) reviewed with unknown) patient: Yes (unknown) (no (unknown) (unknown) Health Management (units (unknown) date) unknown) (unknown) (no (unknown) (unknown) Heartburn (units (unkn own) date) unknown) (unknown) (no (unknown) (unknown) History of (units (unk nown) date) bladder surgery unknown) (unknown) (no (unknown) (unknown) History of breast (units (unknown) date) lump/mass excision unknown) (unknown) (no (unknown) (unknown) History of loop (units (unknown) date) electrical unknown) excision procedure (LEEP) (unknown) (no (unknown) (unknown) Hypertension (units (u nknown) date) unknown) (unknown) (no (unknown) (unknown) I reviewed the (units (unknown) date) patient's Past unknown) Medical History, Problem List, Medications and (unknown) (no (unknown) (unknown) Intake Note: (units (u nknown) date) unknown) (unknown) (no (unknown) (unknown) Intake performed (units (unknown) date) by: Ramonita Martino unknown) (unknown) (no (unknown) (unknown) Intake (units (unkno wn) date) unknown) (unknown) (no (unknown) (unknown) Intake- Clincial (units (unknown) date) Staff unknown) (unknown) (no (unknown) (unknown) LLQ abdominal (units ( unknown) date) pain unknown) (unknown) (no (unknown) (unknown) Last Menstural (units (unknown) date) Cycle + Details unknown) (unknown) (no (unknown) (unknown) Lipase Today (units (u nknown) date) R10.9 - unknown) Unspecified abdominal pain (unknown) (no (unknown) (unknown) Loc: [facility] (units (unkno wn) date) unknown) (unknown) (no (unknown) (unknown) Lt abd pain x 2 (units (unknown) date) yrs. unknown) (unknown) (no (unknown) (unknown) Lymphadenopathy (units (unknown) date) unknown) (unknown) (no (unknown) (unknown) Medical History (units (unknown) date) (Reviewed 12/26/21 unknown) @ 11:30 by CHANDU Mclaughlin) (unknown) (no (unknown) (unknown) Medications (units (un known) date) unknown) (unknown) (no (unknown) (unknown) Medications: (units (u nknown) date) Reconciled unknown) (unknown) (no (unknown) (unknown) Migraine (units (unkno wn) date) unknown) (unknown) (no (unknown) (unknown) Nausea (units (unkno wn) date) unknown) (unknown) (no (unknown) (unknown) Neurological: (units ( unknown) date) Negative.? unknown) (unknown) (no (unknown) (unknown) Note (units (unkno wn) date) unknown) (unknown) (no (unknown) (unknown) Note: (units (unkno wn) date) unknown) (unknown) (no (unknown) (unknown) Notes (units (unkno wn) date) unknown) (unknown) (no (unknown) (unknown) Objective: (units (unk nown) date) unknown) (unknown) (no (unknown) (unknown) Orders (units (unkno wn) date) unknown) (unknown) (no (unknown) (unknown) Orders: (units (unkno wn) date) unknown) (unknown) (no (unknown) (unknown) Other Diabetes (units (unknown) date) mellitus unknown) (unknown) (no (unknown) (unknown) Other Menstrual (units (unknown) date) Period: Other unknown) (unknown) (no (unknown) (unknown) Oxygen Delivery (units (unknown) date) Method room air unknown) (unknown) (no (unknown) (unknown) PFSH (units (unkno wn) date) unknown) (unknown) (no (unknown) (unknown) POC PREG (units (unkno wn) date) unknown) (unknown) (no (unknown) (unknown) POC Preg Test (units ( unknown) date) Negative Last Edit unknown) by Ramonita Martino MA on 02/03/22 14:29 (unknown) (no (unknown) (unknown) POC Urine Dip (units ( unknown) date) Today R10.9 - unknown) Unspecified abdominal pain (unknown) (no (unknown) (unknown) POC Urine (units (unkn own) date) Test unknown) Today R10.9 - Unspecified abdominal pain (unknown) (no (unknown) (unknown) Patient: (units (unkno wn) date) Elly Reesndiz E unknown) MR#: [id number] (unknown) (no (unknown) (unknown) Pelvic pain in (units (unknown) date) female unknown) (unknown) (no (unknown) (unknown) Position Sitting (units (unknown) date) unknown) (unknown) (no (unknown) (unknown) Preg Expiration (units (unknown) date) 03/21/2023 Last unknown) Edit by Ramonita Martino MA on 02/03/22 14:29 (unknown) (no (unknown) (unknown) Preg Lot # (units (unk nown) date) [id number] Last unknown) Edit by Ramonita Martino MA on 02/03/22 14:29 (unknown) (no (unknown) (unknown) Preg QC (units (unkno wn) date) Acceptable? Yes unknown) Last Edit by Ramonita Martino MA on 02/03/22 14:29 (unknown) (no (unknown) (unknown) Pulse 83 (units (unkno wn) date) unknown) (unknown) (no (unknown) (unknown) Pulse Oximetry (units (unknown) date) (%) 100 unknown) (unknown) (no (unknown) (unknown) Pulse Source (units (u nknown) date) Monitor unknown) (unknown) (no (unknown) (unknown) Pyelonephritis (units (unknown) date) unknown) (unknown) (no (unknown) (unknown) Reason For Visit (units (unknown) date) unknown) (unknown) (no (unknown) (unknown) Referral of (units (un known) date) patient unknown) (unknown) (no (unknown) (unknown) Respiratory: (units (u nknown) date) Negative.? unknown) (unknown) (no (unknown) (unknown) Results (units (unkno wn) date) unknown) (unknown) (no (unknown) (unknown) Review of (units (unkn own) date) Systems: unknown) (unknown) (no (unknown) (unknown) Signed By: (units (unk nown) date) unknown) (unknown) (no (unknown) (unknown) Smoking Status: (units (unknown) date) Former smoker unknown) (unknown) (no (unknown) (unknown) Social History (units (unknown) date) (including tobacco unknown) use status). (unknown) (no (unknown) (unknown) Social History (units (unknown) date) unknown) (unknown) (no (unknown) (unknown) Subjective: (units (un known) date) unknown) (unknown) (no (unknown) (unknown) Surgical History (units (unknown) date) (Reviewed 12/26/21 unknown) @ 11:30 by CHANDU Mclaughlin) (unknown) (no (unknown) (unknown) Temp 97.4 F L (units ( unknown) date) unknown) (unknown) (no (unknown) (unknown) Temp Source (units (un known) date) Temporal Artery unknown) Scan (unknown) (no (unknown) (unknown) This note may (units ( unknown) date) have been all or unknown) partially generated using voice recognition (unknown) (no (unknown) (unknown) Tobacco + (units (unkn own) date) Substance Use unknown) (unknown) (no (unknown) (unknown) Tobacco Status (units (unknown) date) unknown) (unknown) (no (unknown) (unknown) Urine Appearance (units (unknown) date) Clear Last Edit by unknown) Ramonita Martino MA on 02/03/22 14:31 (unknown) (no (unknown) (unknown) Urine Bilirubin (units (unknown) date) Negative Last Edit unknown) by Ramonita Martino MA on 02/03/22 14:31 (unknown) (no (unknown) (unknown) Urine Blood (units (un known) date) Negative Last Edit unknown) by Ramonita Martino MA on 02/03/22 14:31 (unknown) (no (unknown) (unknown) Urine Color Elizabeth (units (unknown) date) Last Edit by Ramonita Martino MA on 02/03/22 14:31 (unknown) (no (unknown) (unknown) Urine Dipstick (units (unknown) date) unknown) (unknown) (no (unknown) (unknown) Urine Glucose (units ( unknown) date) Negative mg/dL unknown) Last Edit by Ramonita Martino MA on 02/03/22 14:31 (unknown) (no (unknown) (unknown) Urine Ketones (units ( unknown) date) Negative Last Edit unknown) by Ramonita Martino MA on 02/03/22 14:31 (unknown) (no (unknown) (unknown) Urine Leukocyte (units (unknown) date) Esterase Negative unknown) Last Edit by Ramonita Martino MA on 02/03/22 (unknown) (no (unknown) (unknown) Urine Nitrate (units ( unknown) date) Negative Last Edit unknown) by Ramonita Martino MA on 02/03/22 14:31 (unknown) (no (unknown) (unknown) Urine Protein +- (units (unknown) date) 15 mg/dL Last Edit unknown) by Ramonita Martino MA on 02/03/22 14:31 (unknown) (no (unknown) (unknown) Urine Specific (units (unknown) date) [place] 1.025 Last unknown) Edit by Ramonita Martino MA on 02/03/22 14:31 (unknown) (no (unknown) (unknown) Urine (units (unkno wn) date) Urobilinogen - 0.2 unknown) mg/dL Last Edit by Ramonita Martino MA on 02/03/22 (unknown) (no (unknown) (unknown) Urine pH 6.0 Last (units (unknown) date) Edit by Ramonita Martino MA on 02/03/22 14:31 (unknown) (no (unknown) (unknown) Visit Reasons: (units (unknown) date) NTY abd pain unknown) (unknown) (no (unknown) (unknown) Vital Signs: (units (u nknown) date) Reviewed unknown) (unknown) (no (unknown) (unknown) Vitals (units (unkno wn) date) unknown) (unknown) (no (unknown) (unknown) Voice recognition (units (unknown) date) software was used unknown) in the creation of this note. There may be (unknown) (no (unknown) (unknown) Vomiting (units (unkno wn) date) unknown) (unknown) (no (unknown) (unknown) Weight 135 lb (units ( unknown) date) unknown) (unknown) (no (unknown) (unknown) [] (units (unkno wn) date) unknown) (unknown) (no (unknown) (unknown) acetaminophen (units ( unknown) date) [From Percocet] unknown) Adverse Reaction (Intermediate, Verified 02/03/22 (unknown) (no (unknown) (unknown) alcohol intake: (units (unknown) date) current unknown) (unknown) (no (unknown) (unknown) have occurred. If (units (unknown) date) there are any unknown) questions, please contact the Medical Records (unknown) (no (unknown) (unknown) household (units (unkn own) date) members: unknown) significant other (unknown) (no (unknown) (unknown) hydrocodone [From (units (unknown) date) Vicodin] Adverse unknown) Reaction (Verified 02/03/22 14:39) (unknown) (no (unknown) (unknown) marital status: (units (unknown) date) unknown) (unknown) (no (unknown) (unknown) may occur. (units (unk nown) date) Occasional unknown) wrong-word or 'sound-alike' substitutions may have (unknown) (no (unknown) (unknown) norelgestromin (units (unknown) date) 150 unknown) mcg-e.estradiol 35 mcg/24 hr weekly transderm patch (Xulane) (unknown) (no (unknown) (unknown) occurred due to (units (unknown) date) the inherent unknown) limitations of voice recognition software. Please (unknown) (no (unknown) (unknown) oxycodone [From (units (unknown) date) Percocet] Adverse unknown) Reaction (Intermediate, Verified 02/03/22 (unknown) (no (unknown) (unknown) read the note (units ( unknown) date) carefully and unknown) recognize, using context, where these substitutions (unknown) (no (unknown) (unknown) software. (units (unkn own) date) Although every unknown) effort is made to edit content, medical hospital sales errors (unknown) (no (unknown) (unknown) substance use (units ( unknown) date) type: marijuana unknown) (unknown) (no (unknown) (unknown) typographical (units ( unknown) date) errors as a unknown) result. Result panel 77 (unknown) (no (unknown) (unknown) (no value) (units (unk nown) date) unknown) (unknown) (no (unknown) (unknown) (1) Abdominal (units ( unknown) date) pain: unknown) (unknown) (no (unknown) (unknown) (2) Ovarian cyst: (units (unknown) date) unknown) (unknown) (no (unknown) (unknown) -advise her to (units (unknown) date) possibly reduce unknown) her marijuana use. She also has a history of (unknown) (no (unknown) (unknown) -patient is (units (un known) date) frustrated that I unknown) do not have an answer for her pain. I advised her (unknown) (no (unknown) (unknown) -reviewed her CT (units (unknown) date) scan from a year unknown) ago with the patient. She states that she (unknown) (no (unknown) (unknown) -reviewed her (units ( unknown) date) labs from unknown) yesterday. Again everything is normal. She states the (unknown) (no (unknown) (unknown) [id number] (units (unkno wn) date) unknown) (unknown) (no (unknown) (unknown) 1 patch (units (unkno wn) date) transdermal QWEEK unknown) #3 ea 12/22/21 [Rx Confirmed 02/03/22] (unknown) (no (unknown) (unknown) 1. Longstanding (units (unknown) date) pain. Exam is unknown) normal. Urinalysis is normal. HCG is negative. (unknown) (no (unknown) (unknown) 02/03/22 (units (unkno wn) date) unknown) (unknown) (no (unknown) (unknown) 14:22 (units (unkno wn) date) unknown) (unknown) (no (unknown) (unknown) 14:31 (units (unkno wn) date) unknown) (unknown) (no (unknown) (unknown) 14:39) (units (unkno wn) date) unknown) (unknown) (no (unknown) (unknown) 36 year old (units (un known) date) female presents to unknown) clinic for abdominal pain x 2 years. (unknown) (no (unknown) (unknown) ABD: Positive (units ( unknown) date) bowel sounds. unknown) Abdomen is soft. No tenderness to palpation. No (unknown) (no (unknown) (unknown) Abdominal (units (unkn own) date) location: left unknown) lower quadrant Qualified Code(s): R10.32 (unknown) (no (unknown) (unknown) Age/Sex: 36 / F (units (unknown) date) Date of Service: unknown) (unknown) (no (unknown) (unknown) Allergies (units (unkn own) date) unknown) (unknown) (no (unknown) (unknown) Allergies: (units (unk nown) date) Reviewed unknown) (unknown) (no (unknown) (unknown) [place], [place] (units ( unknown) date) [id number] unknown) (unknown) (no (unknown) (unknown) Assessment + Plan (units (unknown) date) unknown) (unknown) (no (unknown) (unknown) Attending Dr: Mey (units (unknown) date) Latanya D.OKeli unknown) (unknown) (no (unknown) (unknown) BP 108/72 (units (unkn own) date) unknown) (unknown) (no (unknown) (unknown) Blood Pressure (units (unknown) date) Location Lt unknown) brachial (unknown) (no (unknown) (unknown) Bright red rectal (units (unknown) date) bleeding unknown) (unknown) (no (unknown) (unknown) CHEST: Normal (units ( unknown) date) respiratory effort unknown) 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 (units (unknown) date) unknown) (unknown) (no (unknown) (unknown) Cardiovascular: (units (unknown) date) Negative.? unknown) (unknown) (no (unknown) (unknown) Chest pain (units (unk nown) date) unknown) (unknown) (no (unknown) (unknown) Chief Complaint: (units (unknown) date) abd pain unknown) (unknown) (no (unknown) (unknown) Chlamydia (units (unkn own) date) unknown) (unknown) (no (unknown) (unknown) Constitutional: (units (unknown) date) Negative.? unknown) (unknown) (no (unknown) (unknown) Costochondritis (units (unknown) date) unknown) (unknown) (no (unknown) (unknown) Current smoker (units (unknown) date) unknown) (unknown) (no (unknown) (unknown) Cyst of left (units (u nknown) date) ovary unknown) (unknown) (no (unknown) (unknown) : 1985 (units (unknown) date) Acct:[id number] unknown) (unknown) (no (unknown) (unknown) Dept at (units (unkno wn) date) . unknown) (unknown) (no (unknown) (unknown) Diarrhea (units (unkno wn) date) unknown) (unknown) (no (unknown) (unknown) Documented By: (units (unknown) date) Mey Pelaez unknown) 02/03/22 0927 (unknown) (no (unknown) (unknown) Draft (units (unkno wn) date) unknown) (unknown) (no (unknown) (unknown) Dyspareunia (units (un known) date) unknown) (unknown) (no (unknown) (unknown) EYES: PERRL, EOMI (units (unknown) date) and nonicteric unknown) (unknown) (no (unknown) (unknown) Ectopic breast (units (unknown) date) tissue (12/23/17) unknown) (unknown) (no (unknown) (unknown) Endocrine: (units (unk nown) date) Negative.? unknown) (unknown) (no (unknown) (unknown) Excessive flatus (units (unknown) date) unknown) (unknown) (no (unknown) (unknown) Family History (units (unknown) date) (Reviewed 12/26/21 unknown) @ 11:30 by CHANDU Mclaughlin) (unknown) (no (unknown) (unknown) Family Practice (units (unknown) date) Office Visit unknown) (unknown) (no (unknown) (unknown) [facility] (unknown) (no (unknown) (unknown) GENERAL: Well (units ( unknown) date) developed, well unknown) nourished.? Cooperative with exam.? Patient is in (unknown) (no (unknown) (unknown) Gastrointestinal: (units (unknown) date) Negative, except unknown) for above (unknown) (no (unknown) (unknown) Genitourinary: (units (unknown) date) Negative.? unknown) (unknown) (no (unknown) (unknown) H/O dilation and (units (unknown) date) curettage unknown) (unknown) (no (unknown) (unknown) HEAD: Atraumatic, (units (unknown) date) Normocephalic unknown) (unknown) (no (unknown) (unknown) HPV in female (units ( unknown) date) unknown) (unknown) (no (unknown) (unknown) Health Management (units (unknown) date) reviewed with unknown) patient: Yes (unknown) (no (unknown) (unknown) Health Management (units (unknown) date) unknown) (unknown) (no (unknown) (unknown) Heartburn (units (unkn own) date) unknown) (unknown) (no (unknown) (unknown) History of (units (unk nown) date) bladder surgery unknown) (unknown) (no (unknown) (unknown) History of breast (units (unknown) date) lump/mass excision unknown) (unknown) (no (unknown) (unknown) History of loop (units (unknown) date) electrical unknown) excision procedure (LEEP) (unknown) (no (unknown) (unknown) Hypertension (units (u nknown) date) unknown) (unknown) (no (unknown) (unknown) I reviewed the (units (unknown) date) patient's Past unknown) Medical History, Problem List, Medications and (unknown) (no (unknown) (unknown) Intake Note: (units (u nknown) date) unknown) (unknown) (no (unknown) (unknown) Intake performed (units (unknown) date) by: Ramonita Martino unknown) (unknown) (no (unknown) (unknown) Intake (units (unkno wn) date) unknown) (unknown) (no (unknown) (unknown) Intake- Clincial (units (unknown) date) Staff unknown) (unknown) (no (unknown) (unknown) LLQ abdominal (units ( unknown) date) pain unknown) (unknown) (no (unknown) (unknown) Last Menstural (units (unknown) date) Cycle + Details unknown) (unknown) (no (unknown) (unknown) Left lower (units (unk nown) date) quadrant pain unknown) (unknown) (no (unknown) (unknown) Lipase Today (units (u nknown) date) R10.9 - unknown) Unspecified abdominal pain (unknown) (no (unknown) (unknown) Loc: [facility] (units (unkno wn) date) unknown) (unknown) (no (unknown) (unknown) Lt abd pain x 2 (units (unknown) date) yrs. She states unknown) that the pain is overall constant at a low (unknown) (no (unknown) (unknown) Lymphadenopathy (units (unknown) date) unknown) (unknown) (no (unknown) (unknown) MUSKULOSKELETAL: (units (unknown) date) Normal gait. unknown) (unknown) (no (unknown) (unknown) Medical History (units (unknown) date) (Reviewed 12/26/21 unknown) @ 11:30 by CHANDU Mclaughlin) (unknown) (no (unknown) (unknown) Medications (units (un known) date) unknown) (unknown) (no (unknown) (unknown) Medications: (units (u nknown) date) Reconciled unknown) (unknown) (no (unknown) (unknown) Migraine (units (unkno wn) date) unknown) (unknown) (no (unknown) (unknown) NECK: Full range (units (unknown) date) of motion, unknown) lymphadenopathy absent, supple (unknown) (no (unknown) (unknown) NEURO EXAM: Alert (units (unknown) date) and oriented x 3.? unknown) (unknown) (no (unknown) (unknown) Nausea (units (unkno wn) date) unknown) (unknown) (no (unknown) (unknown) Neurological: (units ( unknown) date) Negative.? unknown) (unknown) (no (unknown) (unknown) Note (units (unkno wn) date) unknown) (unknown) (no (unknown) (unknown) Note: (units (unkno wn) date) unknown) (unknown) (no (unknown) (unknown) Notes (units (unkno wn) date) unknown) (unknown) (no (unknown) (unknown) Objective: (units (unk nown) date) unknown) (unknown) (no (unknown) (unknown) Orders (units (unkno wn) date) unknown) (unknown) (no (unknown) (unknown) Orders: (units (unkno wn) date) unknown) (unknown) (no (unknown) (unknown) Other Diabetes (units (unknown) date) mellitus unknown) (unknown) (no (unknown) (unknown) Other Menstrual (units (unknown) date) Period: Other unknown) (unknown) (no (unknown) (unknown) Oxygen Delivery (units (unknown) date) Method room air unknown) (unknown) (no (unknown) (unknown) [facility] (units (unkno wn) date) unknown) (unknown) (no (unknown) (unknown) POC PREG (units (unkno wn) date) unknown) (unknown) (no (unknown) (unknown) POC Preg Test (units ( unknown) date) Negative Last Edit unknown) by Ramonita Martino MA on 02/03/22 14:29 (unknown) (no (unknown) (unknown) POC Urine Dip (units ( unknown) date) Today R10.9 - unknown) Unspecified abdominal pain (unknown) (no (unknown) (unknown) POC Urine (units (unkn own) date) Test unknown) Today R10.9 - Unspecified abdominal pain (unknown) (no (unknown) (unknown) PSYCH: judgement (units (unknown) date) normal, unknown) orientation normal, affect/mood normal and memory (unknown) (no (unknown) (unknown) Patient: (units (unkno wn) date) Elly Resendiz E unknown) MR#: [id number] (unknown) (no (unknown) (unknown) Pelvic pain in (units (unknown) date) female unknown) (unknown) (no (unknown) (unknown) Plan (units (unkno wn) date) unknown) (unknown) (no (unknown) (unknown) Position Sitting (units (unknown) date) unknown) (unknown) (no (unknown) (unknown) Preg Expiration (units (unknown) date) 03/21/2023 Last unknown) Edit by Ramonita Martino MA on 02/03/22 14:29 (unknown) (no (unknown) (unknown) Preg Lot # (units (unk nown) date) [id number] Last unknown) Edit by Ramonita Martino MA on 02/03/22 14:29 (unknown) (no (unknown) (unknown) Preg QC (units (unkno wn) date) Acceptable? Yes unknown) Last Edit by Ramonita Martino MA on 02/03/22 14:29 (unknown) (no (unknown) (unknown) Pulse 83 (units (unkno wn) date) unknown) (unknown) (no (unknown) (unknown) Pulse Oximetry (units (unknown) date) (%) 100 unknown) (unknown) (no (unknown) (unknown) Pulse Source (units (u nknown) date) Monitor unknown) (unknown) (no (unknown) (unknown) Pyelonephritis (units (unknown) date) unknown) (unknown) (no (unknown) (unknown) Qualifiers: (units (un known) date) unknown) (unknown) (no (unknown) (unknown) Reason For Visit (units (unknown) date) unknown) (unknown) (no (unknown) (unknown) Referral of (units (un known) date) patient unknown) (unknown) (no (unknown) (unknown) Respiratory: (units (u nknown) date) Negative.? unknown) (unknown) (no (unknown) (unknown) Results (units (unkno wn) date) unknown) (unknown) (no (unknown) (unknown) Review of (units (unkn own) date) Systems: unknown) (unknown) (no (unknown) (unknown) SKIN:? No rashes (units (unknown) date) on face or arms. unknown) (unknown) (no (unknown) (unknown) Signed By: (units (unk nown) date) unknown) (unknown) (no (unknown) (unknown) Smoking Status: (units (unknown) date) Former smoker unknown) (unknown) (no (unknown) (unknown) Social History (units (unknown) date) (including tobacco unknown) use status). (unknown) (no (unknown) (unknown) Social History (units (unknown) date) unknown) (unknown) (no (unknown) (unknown) Subjective: (units (un known) date) unknown) (unknown) (no (unknown) (unknown) Surgical History (units (unknown) date) (Reviewed 12/26/21 unknown) @ 11:30 by CHANDU Mclaughlin) (unknown) (no (unknown) (unknown) Temp 97.4 F L (units ( unknown) date) unknown) (unknown) (no (unknown) (unknown) Temp Source (units (un known) date) Temporal Artery unknown) Scan (unknown) (no (unknown) (unknown) This note may (units ( unknown) date) have been all or unknown) partially generated using voice recognition (unknown) (no (unknown) (unknown) Tobacco + (units (unkn own) date) Substance Use unknown) (unknown) (no (unknown) (unknown) Tobacco Status (units (unknown) date) unknown) (unknown) (no (unknown) (unknown) Urine Appearance (units (unknown) date) Clear Last Edit by unknown) Ramonita Martino MA on 02/03/22 14:31 (unknown) (no (unknown) (unknown) Urine Bilirubin (units (unknown) date) Negative Last Edit unknown) by Ramonita Martino MA on 02/03/22 14:31 (unknown) (no (unknown) (unknown) Urine Blood (units (un known) date) Negative Last Edit unknown) by Ramonita Martino MA on 02/03/22 14:31 (unknown) (no (unknown) (unknown) Urine Color Elizabeth (units (unknown) date) Last Edit by Ramonita Martino MA on 02/03/22 14:31 (unknown) (no (unknown) (unknown) Urine Dipstick (units (unknown) date) unknown) (unknown) (no (unknown) (unknown) Urine Glucose (units ( unknown) date) Negative mg/dL unknown) Last Edit by Ramonita Martino MA on 02/03/22 14:31 (unknown) (no (unknown) (unknown) Urine Ketones (units ( unknown) date) Negative Last Edit unknown) by Ramonita Martino MA on 02/03/22 14:31 (unknown) (no (unknown) (unknown) Urine Leukocyte (units (unknown) date) Esterase Negative unknown) Last Edit by Ramonita Martino MA on 02/03/22 (unknown) (no (unknown) (unknown) Urine Nitrate (units ( unknown) date) Negative Last Edit unknown) by Ramonita Martino MA on 02/03/22 14:31 (unknown) (no (unknown) (unknown) Urine Protein +- (units (unknown) date) 15 mg/dL Last Edit unknown) by Ramonita Martino MA on 02/03/22 14:31 (unknown) (no (unknown) (unknown) Urine Specific (units (unknown) date) [place] 1.025 Last unknown) Edit by Ramonita Martino MA on 02/03/22 14:31 (unknown) (no (unknown) (unknown) Urine (units (unkno wn) date) Urobilinogen - 0.2 unknown) mg/dL Last Edit by Ramonita Martino MA on 02/03/22 (unknown) (no (unknown) (unknown) Urine pH 6.0 Last (units (unknown) date) Edit by Ramonita unknown) ELISA Martino on 02/03/22 14:31 (unknown) (no (unknown) (unknown) Visit Reasons: (units (unknown) date) NTY abd pain unknown) (unknown) (no (unknown) (unknown) Vital Signs: (units (u nknown) date) Reviewed unknown) (unknown) (no (unknown) (unknown) Vitals (units (unkno wn) date) unknown) (unknown) (no (unknown) (unknown) Voice recognition (units (unknown) date) software was used unknown) in the creation of this note. There may be (unknown) (no (unknown) (unknown) Vomiting (units (unkno wn) date) unknown) (unknown) (no (unknown) (unknown) Weight 135 lb (units ( unknown) date) unknown) (unknown) (no (unknown) (unknown) acetaminophen (units ( unknown) date) [From Percocet] unknown) Adverse Reaction (Intermediate, Verified 02/03/22 (unknown) (no (unknown) (unknown) alcohol intake: (units (unknown) date) current unknown) (unknown) (no (unknown) (unknown) are not missing a (units (unknown) date) major diagnosis unknown) and that she may have to learned how to live (unknown) (no (unknown) (unknown) colonoscopy which (units (unknown) date) she reports as unknown) being normal. She had some blood work done (unknown) (no (unknown) (unknown) does state she (units (unknown) date) smokes marijuana unknown) chronically on a daily basis since she was a (unknown) (no (unknown) (unknown) drinking. I am (units (unknown) date) not sure if she unknown) has some underlying (unknown) (no (unknown) (unknown) episodes of loose (units (unknown) date) stools versus unknown) small volume stools. No UTI symptoms. She did (unknown) (no (unknown) (unknown) follow-up with (units (unknown) date) the recommended unknown) workup that has already begun. (unknown) (no (unknown) (unknown) had any drink for (units (unknown) date) about a month or unknown) so. She denies any tobacco use. But she (unknown) (no (unknown) (unknown) have a CT scan (units (unknown) date) last year which unknown) did not show any clear abdominal etiologies of (unknown) (no (unknown) (unknown) have occurred. If (units (unknown) date) there are any unknown) questions, please contact the Medical Records (unknown) (no (unknown) (unknown) her pain. It did (units (unknown) date) show that she had unknown) an ovarian cyst. Patient also had a recent (unknown) (no (unknown) (unknown) household (units (unkn own) date) members: unknown) significant other (unknown) (no (unknown) (unknown) hydrocodone [From (units (unknown) date) Vicodin] Adverse unknown) Reaction (Verified 02/03/22 14:39) (unknown) (no (unknown) (unknown) indicated at this (units (unknown) date) point. I also unknown) advised her against too much radiation exposure (unknown) (no (unknown) (unknown) lab rn (units (unknown) date) mentioned she unknown) should get a pancreas test and that is what she (unknown) (no (unknown) (unknown) level. However (units (unknown) date) she does get unknown) frequent sharp stabbing pains. The sharp stabbing (unknown) (no (unknown) (unknown) marital status: (units (unknown) date) unknown) (unknown) (no (unknown) (unknown) may occur. (units (unk nown) date) Occasional unknown) wrong-word or 'sound-alike' substitutions may have (unknown) (no (unknown) (unknown) nerve block. She (units (unknown) date) has referrals in unknown) for Gastroenterology, multiple imaging (unknown) (no (unknown) (unknown) no apparent (units (un known) date) distress. unknown) (unknown) (no (unknown) (unknown) norelgestromin (units (unknown) date) 150 unknown) mcg-e.estradiol 35 mcg/24 hr weekly transderm patch (Xulane) (unknown) (no (unknown) (unknown) normal labs and (units (unknown) date) the fact that she unknown) had a CT scan 1 year ago another scan is not (unknown) (no (unknown) (unknown) normal (units (unkno wn) date) unknown) (unknown) (no (unknown) (unknown) occurred due to (units (unknown) date) the inherent unknown) limitations of voice recognition software. Please (unknown) (no (unknown) (unknown) oxycodone [From (units (unknown) date) Percocet] Adverse unknown) Reaction (Intermediate, Verified 02/03/22 (unknown) (no (unknown) (unknown) pains last only a (units (unknown) date) 2nd or 2 and they unknown) resolved. She is recently started having (unknown) (no (unknown) (unknown) read the note (units ( unknown) date) carefully and unknown) recognize, using context, where these substitutions (unknown) (no (unknown) (unknown) software. (units (unkn own) date) Although every unknown) effort is made to edit content, medical hospital sales errors (unknown) (no (unknown) (unknown) some radiation (units (unknown) date) into her left unknown) flank area as well. She denies any nausea, (unknown) (no (unknown) (unknown) spine. 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 I (units (unknown) date) think these are unknown) all appropriate steps to take she should (unknown) (no (unknown) (unknown) substance use (units ( unknown) date) type: marijuana unknown) (unknown) (no (unknown) (unknown) teenager. (units (unkn own) date) unknown) (unknown) (no (unknown) (unknown) that I can not (units (unknown) date) resolved to years unknown) of issues in 1 visit. I am reassured that we (unknown) (no (unknown) (unknown) typographical (units ( unknown) date) errors as a unknown) result. (unknown) (no (unknown) (unknown) vomiting. No (units (u nknown) date) fevers, chills. unknown) She states that she does have intermittent (unknown) (no (unknown) (unknown) with all the (units (u nknown) date) imaging she is had unknown) done over the years. (unknown) (no (unknown) (unknown) with the pain to (units (unknown) date) a certain degree. unknown) She does have referrals for MRIs of her (unknown) (no (unknown) (unknown) would like (units (unk nown) date) another abdominal unknown) CT. I advised her with her normal abdominal exam, (unknown) (no (unknown) (unknown) would like. An (units (unknown) date) order for lipase unknown) was placed. (unknown) (no (unknown) (unknown) yesterday. (units (unk nown) date) Patient was a unknown) daily alcohol user however she states that she is not Result panel 78 (unknown) (no (unknown) (unknown) (no value) (units (unk nown) date) unknown) (unknown) (no (unknown) (unknown) (1) Abdominal (units ( unknown) date) pain: unknown) (unknown) (no (unknown) (unknown) (2) Ovarian cyst: (units (unknown) date) unknown) (unknown) (no (unknown) (unknown) -advise her to (units (unknown) date) possibly reduce unknown) her marijuana use. She also has a history of (unknown) (no (unknown) (unknown) -depending on what (units (unknown) date) her other workup unknown) shows we can consider maybe amitriptyline to (unknown) (no (unknown) (unknown) -patient is (units (un known) date) frustrated that I unknown) do not have an answer for her pain. I advised her (unknown) (no (unknown) (unknown) -reviewed her CT (units (unknown) date) scan from a year unknown) ago with the patient. She states that she (unknown) (no (unknown) (unknown) -reviewed her (units ( unknown) date) labs from unknown) yesterday. Again everything is normal. She states the (unknown) (no (unknown) (unknown) [id number] (units (unkno wn) date) unknown) (unknown) (no (unknown) (unknown) 1 patch (units (unkno wn) date) transdermal QWEEK unknown) #3 ea 12/22/21 [Rx Confirmed 02/03/22] (unknown) (no (unknown) (unknown) 1. Longstanding (units (unknown) date) pain. Exam is unknown) normal. Urinalysis is normal. HCG is negative. (unknown) (no (unknown) (unknown) 02/03/22 1557 (units ( unknown) date) unknown) (unknown) (no (unknown) (unknown) 02/03/22 (units (unkno wn) date) unknown) (unknown) (no (unknown) (unknown) 14:22 (units (unkno wn) date) unknown) (unknown) (no (unknown) (unknown) 14:31 (units (unkno wn) date) unknown) (unknown) (no (unknown) (unknown) 14:39) (units (unkno wn) date) unknown) (unknown) (no (unknown) (unknown) 2. In further (units ( unknown) date) review of her unknown) chart once she left clinic, she did have an (unknown) (no (unknown) (unknown) 36 year old (units (un known) date) female presents to unknown) clinic for abdominal pain x 2 years. (unknown) (no (unknown) (unknown) ABD: Positive (units ( unknown) date) bowel sounds. unknown) Abdomen is soft. No tenderness to palpation. No (unknown) (no (unknown) (unknown) Abdominal (units (unkn own) date) location: left unknown) lower quadrant Qualified Code(s): R10.32 (unknown) (no (unknown) (unknown) Age/Sex: 36 / F (units (unknown) date) Date of Service: unknown) (unknown) (no (unknown) (unknown) Allergies (units (unkn own) date) unknown) (unknown) (no (unknown) (unknown) Allergies: (units (unk nown) date) Reviewed unknown) (unknown) (no (unknown) (unknown) [place], [place] (units ( unknown) date) [id number] unknown) (unknown) (no (unknown) (unknown) Assessment + Plan (units (unknown) date) unknown) (unknown) (no (unknown) (unknown) Attending Dr: Mey (units (unknown) date) Latanya Cantu unknown) (unknown) (no (unknown) (unknown) BP 108/72 (units (unkn own) date) unknown) (unknown) (no (unknown) (unknown) Blood Pressure (units (unknown) date) Location Lt unknown) brachial (unknown) (no (unknown) (unknown) Bright red rectal (units (unknown) date) bleeding unknown) (unknown) (no (unknown) (unknown) CHEST: Normal (units ( unknown) date) respiratory effort unknown) 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 (units (unknown) date) unknown) (unknown) (no (unknown) (unknown) Cardiovascular: (units (unknown) date) Negative.? unknown) (unknown) (no (unknown) (unknown) Chest pain (units (unk nown) date) unknown) (unknown) (no (unknown) (unknown) Chief Complaint: (units (unknown) date) abd pain unknown) (unknown) (no (unknown) (unknown) Chlamydia (units (unkn own) date) unknown) (unknown) (no (unknown) (unknown) Constitutional: (units (unknown) date) Negative.? unknown) (unknown) (no (unknown) (unknown) Costochondritis (units (unknown) date) unknown) (unknown) (no (unknown) (unknown) Current smoker (units (unknown) date) unknown) (unknown) (no (unknown) (unknown) Cyst of left (units (u nknown) date) ovary unknown) (unknown) (no (unknown) (unknown) : 1985 (units (unknown) date) Acct:[id number] unknown) (unknown) (no (unknown) (unknown) Dept at (units (unkno wn) date) . unknown) (unknown) (no (unknown) (unknown) Diarrhea (units (unkno wn) date) unknown) (unknown) (no (unknown) (unknown) Documented By: (units (unknown) date) Mey Pelaez unknown) 02/03/22 4671 (unknown) (no (unknown) (unknown) Dyspareunia (units (un known) date) unknown) (unknown) (no (unknown) (unknown) EYES: PERRL, EOMI (units (unknown) date) and nonicteric unknown) (unknown) (no (unknown) (unknown) Ectopic breast (units (unknown) date) tissue (12/23/17) unknown) (unknown) (no (unknown) (unknown) Endocrine: (units (unk nown) date) Negative.? unknown) (unknown) (no (unknown) (unknown) Excessive flatus (units (unknown) date) unknown) (unknown) (no (unknown) (unknown) Family History (units (unknown) date) (Reviewed 12/26/21 unknown) @ 11:30 by CHANDU Mclaughlin) (unknown) (no (unknown) (unknown) Family Practice (units (unknown) date) Office Visit unknown) (unknown) (no (unknown) (unknown) [facility] (unknown) (no (unknown) (unknown) GENERAL: Well (units ( unknown) date) developed, well unknown) nourished.? Cooperative with exam.? Patient is in (unknown) (no (unknown) (unknown) Gastrointestinal: (units (unknown) date) Negative, except unknown) for above (unknown) (no (unknown) (unknown) Genitourinary: (units (unknown) date) Negative.? unknown) (unknown) (no (unknown) (unknown) H/O dilation and (units (unknown) date) curettage unknown) (unknown) (no (unknown) (unknown) HEAD: Atraumatic, (units (unknown) date) Normocephalic unknown) (unknown) (no (unknown) (unknown) HPV in female (units ( unknown) date) unknown) (unknown) (no (unknown) (unknown) Health Management (units (unknown) date) reviewed with unknown) patient: Yes (unknown) (no (unknown) (unknown) Health Management (units (unknown) date) unknown) (unknown) (no (unknown) (unknown) Heartburn (units (unkn own) date) unknown) (unknown) (no (unknown) (unknown) History of (units (unk nown) date) bladder surgery unknown) (unknown) (no (unknown) (unknown) History of breast (units (unknown) date) lump/mass excision unknown) (unknown) (no (unknown) (unknown) History of loop (units (unknown) date) electrical unknown) excision procedure (LEEP) (unknown) (no (unknown) (unknown) Hypertension (units (u nknown) date) unknown) (unknown) (no (unknown) (unknown) I reviewed the (units (unknown) date) patient's Past unknown) Medical History, Problem List, Medications and (unknown) (no (unknown) (unknown) Intake Note: (units (u nknown) date) unknown) (unknown) (no (unknown) (unknown) Intake performed (units (unknown) date) by: Ramonita Martino unknown) (unknown) (no (unknown) (unknown) Intake (units (unkno wn) date) unknown) (unknown) (no (unknown) (unknown) Intake- Clincial (units (unknown) date) Staff unknown) (unknown) (no (unknown) (unknown) LLQ abdominal (units ( unknown) date) pain unknown) (unknown) (no (unknown) (unknown) Last Menstural (units (unknown) date) Cycle + Details unknown) (unknown) (no (unknown) (unknown) Laterality: left (units (unknown) date) Qualified Code(s): unknown) N83.202 - Unspecified ovarian cyst, (unknown) (no (unknown) (unknown) Left lower (units (unk nown) date) quadrant pain unknown) (unknown) (no (unknown) (unknown) Lipase Today (units (u nknown) date) R10.9 - unknown) Unspecified abdominal pain (unknown) (no (unknown) (unknown) Loc: [facility] (units (unkno wn) date) unknown) (unknown) (no (unknown) (unknown) Lt abd pain x 2 (units (unknown) date) yrs. She states unknown) that the pain is overall constant at a low (unknown) (no (unknown) (unknown) Lymphadenopathy (units (unknown) date) unknown) (unknown) (no (unknown) (unknown) MUSKULOSKELETAL: (units (unknown) date) Normal gait. unknown) (unknown) (no (unknown) (unknown) Medical History (units (unknown) date) (Reviewed 12/26/21 unknown) @ 11:30 by CHANDU Mclaughlin) (unknown) (no (unknown) (unknown) Medications (units (un known) date) unknown) (unknown) (no (unknown) (unknown) Medications: (units (u nknown) date) Reconciled unknown) (unknown) (no (unknown) (unknown) Migraine (units (unkno wn) date) unknown) (unknown) (no (unknown) (unknown) NECK: Full range (units (unknown) date) of motion, unknown) lymphadenopathy absent, supple (unknown) (no (unknown) (unknown) NEURO EXAM: Alert (units (unknown) date) and oriented x 3.? unknown) (unknown) (no (unknown) (unknown) Nausea (units (unkno wn) date) unknown) (unknown) (no (unknown) (unknown) Neurological: (units ( unknown) date) Negative.? unknown) (unknown) (no (unknown) (unknown) Note (units (unkno wn) date) unknown) (unknown) (no (unknown) (unknown) Note: (units (unkno wn) date) unknown) (unknown) (no (unknown) (unknown) Notes (units (unkno wn) date) unknown) (unknown) (no (unknown) (unknown) Objective: (units (unk nown) date) unknown) (unknown) (no (unknown) (unknown) Orders (units (unkno wn) date) unknown) (unknown) (no (unknown) (unknown) Orders: (units (unkno wn) date) unknown) (unknown) (no (unknown) (unknown) Other Diabetes (units (unknown) date) mellitus unknown) (unknown) (no (unknown) (unknown) Other Menstrual (units (unknown) date) Period: Other unknown) (unknown) (no (unknown) (unknown) Oxygen Delivery (units (unknown) date) Method room air unknown) (unknown) (no (unknown) (unknown) PFSH (units (unkno wn) date) unknown) (unknown) (no (unknown) (unknown) POC PREG (units (unkno wn) date) unknown) (unknown) (no (unknown) (unknown) POC Preg Test (units ( unknown) date) Negative Last Edit unknown) by Ramonita Martino MA on 02/03/22 14:29 (unknown) (no (unknown) (unknown) POC Urine Dip (units ( unknown) date) Today R10.9 - unknown) Unspecified abdominal pain (unknown) (no (unknown) (unknown) POC Urine (units (unkn own) date) Test unknown) Today R10.9 - Unspecified abdominal pain (unknown) (no (unknown) (unknown) PSYCH: judgement (units (unknown) date) normal, unknown) orientation normal, affect/mood normal and memory (unknown) (no (unknown) (unknown) Patient: (units (unkno wn) date) Elly Resendiz E unknown) MR#: [id number] (unknown) (no (unknown) (unknown) Pelvic pain in (units (unknown) date) female unknown) (unknown) (no (unknown) (unknown) Plan (units (unkno wn) date) unknown) (unknown) (no (unknown) (unknown) Position Sitting (units (unknown) date) unknown) (unknown) (no (unknown) (unknown) Preg Expiration (units (unknown) date) 03/21/2023 Last unknown) Edit by Ramonita Martino MA on 02/03/22 14:29 (unknown) (no (unknown) (unknown) Preg Lot # (units (unk nown) date) [id number] Last unknown) Edit by Ramonita Martino MA on 02/03/22 14:29 (unknown) (no (unknown) (unknown) Preg QC (units (unkno wn) date) Acceptable? Yes unknown) Last Edit by Ramonita Martino MA on 02/03/22 14:29 (unknown) (no (unknown) (unknown) Pulse 83 (units (unkno wn) date) unknown) (unknown) (no (unknown) (unknown) Pulse Oximetry (units (unknown) date) (%) 100 unknown) (unknown) (no (unknown) (unknown) Pulse Source (units (u nknown) date) Monitor unknown) (unknown) (no (unknown) (unknown) Pyelonephritis (units (unknown) date) unknown) (unknown) (no (unknown) (unknown) Qualifiers: (units (un known) date) unknown) (unknown) (no (unknown) (unknown) Reason For Visit (units (unknown) date) unknown) (unknown) (no (unknown) (unknown) Referral of (units (un known) date) patient unknown) (unknown) (no (unknown) (unknown) Respiratory: (units (u nknown) date) Negative.? unknown) (unknown) (no (unknown) (unknown) Results (units (unkno wn) date) unknown) (unknown) (no (unknown) (unknown) Review of (units (unkn own) date) Systems: unknown) (unknown) (no (unknown) (unknown) SKIN:? No rashes (units (unknown) date) on face or arms. unknown) (unknown) (no (unknown) (unknown) Signed By: (units (unk nown) date) <Electronically unknown) signed by Mey Pelaez> (unknown) (no (unknown) (unknown) Signed (units (unkno wn) date) unknown) (unknown) (no (unknown) (unknown) Smoking Status: (units (unknown) date) Former smoker unknown) (unknown) (no (unknown) (unknown) Social History (units (unknown) date) (including tobacco unknown) use status). (unknown) (no (unknown) (unknown) Social History (units (unknown) date) unknown) (unknown) (no (unknown) (unknown) Subjective: (units (un known) date) unknown) (unknown) (no (unknown) (unknown) Surgical History (units (unknown) date) (Reviewed 12/26/21 unknown) @ 11:30 by CHANDU Mclaughlin) (unknown) (no (unknown) (unknown) Temp 97.4 F L (units ( unknown) date) unknown) (unknown) (no (unknown) (unknown) Temp Source (units (un known) date) Temporal Artery unknown) Scan (unknown) (no (unknown) (unknown) This note may (units ( unknown) date) have been all or unknown) partially generated using voice recognition (unknown) (no (unknown) (unknown) Tobacco + (units (unkn own) date) Substance Use unknown) (unknown) (no (unknown) (unknown) Tobacco Status (units (unknown) date) unknown) (unknown) (no (unknown) (unknown) US pelvic (units (unkn own) date) complete Today unknown) N83.202 - Unspecified ovarian cyst, left side (unknown) (no (unknown) (unknown) Urine Appearance (units (unknown) date) Clear Last Edit by unknown) Ramonita Martino MA on 02/03/22 14:31 (unknown) (no (unknown) (unknown) Urine Bilirubin (units (unknown) date) Negative Last Edit unknown) by Ramonita Martino MA on 02/03/22 14:31 (unknown) (no (unknown) (unknown) Urine Blood (units (un known) date) Negative Last Edit unknown) by Ramonita Martino MA on 02/03/22 14:31 (unknown) (no (unknown) (unknown) Urine Color Elizabeth (units (unknown) date) Last Edit by Ramonita Martino MA on 02/03/22 14:31 (unknown) (no (unknown) (unknown) Urine Dipstick (units (unknown) date) unknown) (unknown) (no (unknown) (unknown) Urine Glucose (units ( unknown) date) Negative mg/dL unknown) Last Edit by Ramonita Martino MA on 02/03/22 14:31 (unknown) (no (unknown) (unknown) Urine Ketones (units ( unknown) date) Negative Last Edit unknown) by Ramonita Martino MA on 02/03/22 14:31 (unknown) (no (unknown) (unknown) Urine Leukocyte (units (unknown) date) Esterase Negative unknown) Last Edit by Ramonita Martino MA on 02/03/22 (unknown) (no (unknown) (unknown) Urine Nitrate (units ( unknown) date) Negative Last Edit unknown) by Ramonita Martino MA on 02/03/22 14:31 (unknown) (no (unknown) (unknown) Urine Protein +- (units (unknown) date) 15 mg/dL Last Edit unknown) by Ramonita Martino MA on 02/03/22 14:31 (unknown) (no (unknown) (unknown) Urine Specific (units (unknown) date) [place] 1.025 Last unknown) Edit by Ramonita Martino MA on 02/03/22 14:31 (unknown) (no (unknown) (unknown) Urine (units (unkno wn) date) Urobilinogen - 0.2 unknown) mg/dL Last Edit by Ramonita Martino MA on 02/03/22 (unknown) (no (unknown) (unknown) Urine pH 6.0 Last (units (unknown) date) Edit by Ramonita Martino MA on 02/03/22 14:31 (unknown) (no (unknown) (unknown) Visit Reasons: (units (unknown) date) NTY abd pain unknown) (unknown) (no (unknown) (unknown) Vital Signs: (units (u nknown) date) Reviewed unknown) (unknown) (no (unknown) (unknown) Vitals (units (unkno wn) date) unknown) (unknown) (no (unknown) (unknown) Voice recognition (units (unknown) date) software was used unknown) in the creation of this note. There may be (unknown) (no (unknown) (unknown) Vomiting (units (unkno wn) date) unknown) (unknown) (no (unknown) (unknown) Weight 135 lb (units ( unknown) date) unknown) (unknown) (no (unknown) (unknown) acetaminophen (units ( unknown) date) [From Percocet] unknown) Adverse Reaction (Intermediate, Verified 02/03/22 (unknown) (no (unknown) (unknown) alcohol intake: (units (unknown) date) current unknown) (unknown) (no (unknown) (unknown) are not missing a (units (unknown) date) major diagnosis unknown) and that she may have to learned how to live (unknown) (no (unknown) (unknown) colonoscopy which (units (unknown) date) she reports as unknown) being normal. She had some blood work done (unknown) (no (unknown) (unknown) convenience. (units (u nknown) date) unknown) (unknown) (no (unknown) (unknown) does state she (units (unknown) date) smokes marijuana unknown) chronically on a daily basis since she was a (unknown) (no (unknown) (unknown) drinking. I am (units (unknown) date) not sure if she unknown) has some underlying somatic issues contributing (unknown) (no (unknown) (unknown) episodes of loose (units (unknown) date) stools versus unknown) small volume stools. No UTI symptoms. She did (unknown) (no (unknown) (unknown) follow-up with (units (unknown) date) the recommended unknown) workup that has already begun. (unknown) (no (unknown) (unknown) had any drink for (units (unknown) date) about a month or unknown) so. She denies any tobacco use. But she (unknown) (no (unknown) (unknown) have a CT scan (units (unknown) date) last year which unknown) did not show any clear abdominal etiologies of (unknown) (no (unknown) (unknown) have occurred. If (units (unknown) date) there are any unknown) questions, please contact the Medical Records (unknown) (no (unknown) (unknown) help with some of (units (unknown) date) the pain symptoms. unknown) We can address this further at future (unknown) (no (unknown) (unknown) her pain. It did (units (unknown) date) show that she had unknown) an ovarian cyst. Patient also had a recent (unknown) (no (unknown) (unknown) household (units (unkn own) date) members: unknown) significant other (unknown) (no (unknown) (unknown) hydrocodone [From (units (unknown) date) Vicodin] Adverse unknown) Reaction (Verified 02/03/22 14:39) (unknown) (no (unknown) (unknown) indicated at this (units (unknown) date) point. I also unknown) advised her against too much radiation exposure (unknown) (no (unknown) (unknown) lab rn (units (unknown) date) mentioned she unknown) should get a pancreas test and that is what she (unknown) (no (unknown) (unknown) left side (units (unkn own) date) unknown) (unknown) (no (unknown) (unknown) level. However (units (unknown) date) she does get unknown) frequent sharp stabbing pains. The sharp stabbing (unknown) (no (unknown) (unknown) marital status: (units (unknown) date) unknown) (unknown) (no (unknown) (unknown) may occur. (units (unk nown) date) Occasional unknown) wrong-word or 'sound-alike' substitutions may have (unknown) (no (unknown) (unknown) nerve block. She (units (unknown) date) has referrals in unknown) for Gastroenterology, multiple imaging (unknown) (no (unknown) (unknown) no apparent (units (un known) date) distress. unknown) (unknown) (no (unknown) (unknown) norelgestromin (units (unknown) date) 150 unknown) mcg-e.estradiol 35 mcg/24 hr weekly transderm patch (Xulane) (unknown) (no (unknown) (unknown) normal labs and (units (unknown) date) the fact that she unknown) had a CT scan 1 year ago another scan is not (unknown) (no (unknown) (unknown) normal (units (unkno wn) date) unknown) (unknown) (no (unknown) (unknown) occurred due to (units (unknown) date) the inherent unknown) limitations of voice recognition software. Please (unknown) (no (unknown) (unknown) oxycodone [From (units (unknown) date) Percocet] Adverse unknown) Reaction (Intermediate, Verified 02/03/22 (unknown) (no (unknown) (unknown) pains last only a (units (unknown) date) 2nd or 2 and they unknown) resolved. She is recently started having (unknown) (no (unknown) (unknown) place the order (units (unknown) date) for the ultrasound unknown) and contact patient to schedule it at her (unknown) (no (unknown) (unknown) read the note (units ( unknown) date) carefully and unknown) recognize, using context, where these substitutions (unknown) (no (unknown) (unknown) software. (units (unkn own) date) Although every unknown) effort is made to edit content, medical hospital sales errors (unknown) (no (unknown) (unknown) some radiation (units (unknown) date) into her left unknown) flank area as well. She denies any nausea, (unknown) (no (unknown) (unknown) spine. 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 I (units (unknown) date) think these are unknown) all appropriate steps to take she should (unknown) (no (unknown) (unknown) substance use (units ( unknown) date) type: marijuana unknown) (unknown) (no (unknown) (unknown) teenager. (units (unkn own) date) unknown) (unknown) (no (unknown) (unknown) that I can not (units (unknown) date) resolved to years unknown) of issues in 1 visit. I am reassured that we (unknown) (no (unknown) (unknown) to her pain that (units (unknown) date) she is been self unknown) medicating for? (unknown) (no (unknown) (unknown) typographical (units ( unknown) date) errors as a unknown) result. (unknown) (no (unknown) (unknown) ultrasound a few (units (unknown) date) days after the unknown) abdominal CT. They did recommend a follow-up (unknown) (no (unknown) (unknown) ultrasound in 6 (units (unknown) date) weeks which does unknown) not appear to have been completed. I will (unknown) (no (unknown) (unknown) visits. (units (unkno wn) date) unknown) (unknown) (no (unknown) (unknown) vomiting. No (units (u nknown) date) fevers, chills. unknown) She states that she does have intermittent (unknown) (no (unknown) (unknown) with all the (units (u nknown) date) imaging she is had unknown) done over the years. (unknown) (no (unknown) (unknown) with the pain to (units (unknown) date) a certain degree. unknown) She does have referrals for MRIs of her (unknown) (no (unknown) (unknown) would like (units (unk nown) date) another abdominal unknown) CT. I advised her with her normal abdominal exam, (unknown) (no (unknown) (unknown) would like. An (units (unknown) date) order for lipase unknown) was placed. (unknown) (no (unknown) (unknown) yesterday. (units (unk nown) date) Patient was a unknown) daily alcohol user however she states that she is not Result panel 79 (unknown) (no date) (unknown) (unknown) * (units (unkn own) unknown) (unknown) (no date) (unknown) (unknown) * (units (unkn own) unknown) (unknown) (no date) (unknown) (unknown) 0-1 /HPF (units (unkn own) unknown) (unknown) (no date) (unknown) (unknown) 0-1/HPF (units (unkn own) unknown) (unknown) (no date) (unknown) (unknown) 0-1/HPF (units (unkn own) unknown) (unknown) (no date) (unknown) (unknown) 1 (units (unkn own) unknown) (unknown) (no date) (unknown) (unknown) Few (units (unkn own) unknown) (unknown) (no date) (unknown) (unknown) None Seen (units (unk nown) unknown) Result panel 80 (unknown) (no (unknown) (unknown) (no value) (units (unk nown) date) unknown) (unknown) (no (unknown) (unknown) [id number] (units (unkno wn) date) unknown) (unknown) (no (unknown) (unknown) 1 patch (units (unkno wn) date) transdermal QWEEK unknown) Qty: 3 1RF (unknown) (no (unknown) (unknown) 03/19/22 22:31 (units (unknown) date) unknown) (unknown) (no (unknown) (unknown) 03/19/22 (units (unkno wn) date) Range/Units unknown) (unknown) (no (unknown) (unknown) 03/19/22 (units (unkno wn) date) unknown) (unknown) (no (unknown) (unknown) 14:39 (units (unkno wn) date) unknown) (unknown) (no (unknown) (unknown) 22:11 (units (unkno wn) date) unknown) (unknown) (no (unknown) (unknown) 22:31 (units (unkno wn) date) unknown) (unknown) (no (unknown) (unknown) 35 mcg/24 hr (units (u nknown) date) weekly transderm unknown) (unknown) (no (unknown) (unknown) Age/Sex: 37 / F (units (unknown) date) unknown) (unknown) (no (unknown) (unknown) Allergies (units (unkn own) date) unknown) (unknown) (no (unknown) (unknown) Allergy/AdvReac (units (unknown) date) Type Severity unknown) Reaction Status Date / Time (unknown) (no (unknown) (unknown) Bedside Urine (units ( unknown) date) Bilirubin - unknown) Negative (unknown) (no (unknown) (unknown) Bedside Urine (units ( unknown) date) Glucose Negative unknown) (unknown) (no (unknown) (unknown) Bedside Urine (units ( unknown) date) Ketone +/- 5 unknown) (unknown) (no (unknown) (unknown) Bedside Urine (units ( unknown) date) Leukocytes - unknown) Negative (unknown) (no (unknown) (unknown) Bedside Urine (units ( unknown) date) Nitrite - Negative unknown) (unknown) (no (unknown) (unknown) Bedside Urine (units ( unknown) date) Occult Blood unknown) (unknown) (no (unknown) (unknown) Bedside Urine (units ( unknown) date) Protein - Negative unknown) (unknown) (no (unknown) (unknown) Bedside Urine (units ( unknown) date) Urobilinogen - unknown) Negative (unknown) (no (unknown) (unknown) Bedside Urine pH (units (unknown) date) 5.5 unknown) (unknown) (no (unknown) (unknown) Blood Pressure (units (unknown) date) 121/58 L 03/19/22 unknown) 22:11 (unknown) (no (unknown) (unknown) Blood Pressure (units (unknown) date) 121/58 L unknown) (unknown) (no (unknown) (unknown) Bright red rectal (units (unknown) date) bleeding unknown) 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 (unknown) (no (unknown) (unknown) Calcium Oxalate (units (unknown) date) Crystal Few H unknown) (unknown) (no (unknown) (unknown) Chest pain (units (unk nown) date) unknown) (unknown) (no (unknown) (unknown) Chief Complaint: (units (unknown) date) Back Pain/Injury unknown) (unknown) (no (unknown) (unknown) Chlamydia (units (unkn own) date) unknown) (unknown) (no (unknown) (unknown) Costochondritis (units (unknown) date) unknown) (unknown) (no (unknown) (unknown) Course (units (unkno wn) date) unknown) (unknown) (no (unknown) (unknown) Current smoker (units (unknown) date) unknown) (unknown) (no (unknown) (unknown) Cyst of left (units (u nknown) date) ovary unknown) (unknown) (no (unknown) (unknown) : 1985 (units (unknown) date) Acct:[id number] unknown) (unknown) (no (unknown) (unknown) Date of Service: (units (unknown) date) 03/19/22 unknown) (unknown) (no (unknown) (unknown) Departure (units (unkn own) date) unknown) (unknown) (no (unknown) (unknown) Diarrhea (units (unkno wn) date) unknown) (unknown) (no (unknown) (unknown) Discharge Plan (units (unknown) date) unknown) (unknown) (no (unknown) (unknown) Dyspareunia (units (un known) date) unknown) (unknown) (no (unknown) (unknown) ED Orders (units (unkn own) date) unknown) (unknown) (no (unknown) (unknown) ER Physician: (units ( unknown) date) Chas Reece unknown) D.O. (unknown) (no (unknown) (unknown) Ectopic breast (units (unknown) date) tissue (12/23/17) unknown) (unknown) (no (unknown) (unknown) Emergency Report (units (unknown) date) unknown) (unknown) (no (unknown) (unknown) Esterase (units (unkno wn) date) unknown) (unknown) (no (unknown) (unknown) Exam (units (unkno wn) date) unknown) (unknown) (no (unknown) (unknown) Excessive flatus (units (unknown) date) unknown) (unknown) (no (unknown) (unknown) Family History (units (unknown) date) (Reviewed 12/26/21 unknown) @ 11:30 by CHANDU Mclaughlin) (unknown) (no (unknown) (unknown) General (units (unkno wn) date) unknown) (unknown) (no (unknown) (unknown) H/O dilation and (units (unknown) date) curettage unknown) (unknown) (no (unknown) (unknown) HPI - Back (units (unk nown) date) Pain/Injury unknown) (unknown) (no (unknown) (unknown) HPV in female (units ( unknown) date) unknown) (unknown) (no (unknown) (unknown) Heartburn (units (unkn own) date) unknown) (unknown) (no (unknown) (unknown) History of (units (unk nown) date) bladder surgery unknown) (unknown) (no (unknown) (unknown) History of breast (units (unknown) date) lump/mass excision unknown) (unknown) (no (unknown) (unknown) History of loop (units (unknown) date) electrical unknown) excision procedure (LEEP) (unknown) (no (unknown) (unknown) Hypertension (units (u nknown) date) unknown) (unknown) (no (unknown) (unknown) Initial Vital (units ( unknown) date) Signs unknown) (unknown) (no (unknown) (unknown) Initial Vital (units ( unknown) date) Signs: unknown) (unknown) (no (unknown) (unknown) [facility] (units (unknown) date) [address] unknown) [place] [address] (unknown) (no (unknown) (unknown) LLQ abdominal (units ( unknown) date) pain unknown) (unknown) (no (unknown) (unknown) Lab Data (units (unkno wn) date) unknown) (unknown) (no (unknown) (unknown) Lab Results (units (un known) date) unknown) (unknown) (no (unknown) (unknown) Labs: (units (unkno wn) date) unknown) (unknown) (no (unknown) (unknown) Lymphadenopathy (units (unknown) date) unknown) (unknown) (no (unknown) (unknown) MDM - Back (units (unk nown) date) Pain/Injury unknown) (unknown) (no (unknown) (unknown) Medical History (units (unknown) date) (Reviewed 12/26/21 unknown) @ 11:30 by CHANDU Mclaughlin) (unknown) (no (unknown) (unknown) Medication (units (unk nown) date) Instructions unknown) Recorded (unknown) (no (unknown) (unknown) Micro UA Comment (units (unknown) date) * unknown) (unknown) (no (unknown) (unknown) Migraine (units (unkno wn) date) unknown) (unknown) (no (unknown) (unknown) Nausea (units (unkno wn) date) unknown) (unknown) (no (unknown) (unknown) No Action (units (unkn own) date) unknown) (unknown) (no (unknown) (unknown) Ordered: (units (unkno wn) date) unknown) (unknown) (no (unknown) (unknown) Orders (units (unkno wn) date) unknown) (unknown) (no (unknown) (unknown) Other Diabetes (units (unknown) date) mellitus unknown) (unknown) (no (unknown) (unknown) Oxygen Delivery (units (unknown) date) Method 03/19/22 unknown) 22:11 (unknown) (no (unknown) (unknown) Oxygen Delivery (units (unknown) date) Method Room Air unknown) (unknown) (no (unknown) (unknown) Patient History (units (unknown) date) unknown) (unknown) (no (unknown) (unknown) Patient: (units (unkno wn) date) Elly Resendiz E unknown) MR#: [id number] (unknown) (no (unknown) (unknown) Pelvic pain in (units (unknown) date) female unknown) (unknown) (no (unknown) (unknown) Point of Care (units ( unknown) date) Testing unknown) (unknown) (no (unknown) (unknown) Test (units (unknown) date) Results Negative unknown) (unknown) (no (unknown) (unknown) Prescriptions: (units (unknown) date) unknown) (unknown) (no (unknown) (unknown) Previous Rx's (units ( unknown) date) unknown) (unknown) (no (unknown) (unknown) Pulse Oximetry (units (unknown) date) 100 03/19/22 22:11 unknown) (unknown) (no (unknown) (unknown) Pulse Oximetry (units (unknown) date) 100 unknown) (unknown) (no (unknown) (unknown) Pulse Rate 97 H (units (unknown) date) 03/19/22 22:11 unknown) (unknown) (no (unknown) (unknown) Pulse Rate 97 H (units (unknown) date) unknown) (unknown) (no (unknown) (unknown) Pyelonephritis (units (unknown) date) unknown) (unknown) (no (unknown) (unknown) Referral of (units (un known) date) patient unknown) (unknown) (no (unknown) (unknown) Referrals: (units (unk nown) date) unknown) (unknown) (no (unknown) (unknown) Related Data (units (u nknown) date) unknown) (unknown) (no (unknown) (unknown) Respiratory Rate (units (unknown) date) 18 03/19/22 22:11 unknown) (unknown) (no (unknown) (unknown) Respiratory Rate (units (unknown) date) 18 unknown) (unknown) (no (unknown) (unknown) Rx Instructions: (units (unknown) date) unknown) (unknown) (no (unknown) (unknown) Mey Pelaez DO (units (unknown) date) [Primary Care unknown) Provider] (unknown) (no (unknown) (unknown) Signed By: (units (unk nown) date) unknown) (unknown) (no (unknown) (unknown) Smoking Status: (units (unknown) date) Former smoker unknown) (unknown) (no (unknown) (unknown) Social History (units (unknown) date) (System 06/13/19 @ unknown) 08:19 by Susie Lino) (unknown) (no (unknown) (unknown) Source: patient (units (unknown) date) unknown) (unknown) (no (unknown) (unknown) Stated Complaint: (units (unknown) date) back pain mostly unknown) left side (unknown) (no (unknown) (unknown) Substance Use (units ( unknown) date) Type: marijuana unknown) (unknown) (no (unknown) (unknown) Surgical History (units (unknown) date) (Reviewed 12/26/21 unknown) @ 11:30 by CHANDU Mclaughlin) (unknown) (no (unknown) (unknown) Temperature 98.4 (units (unknown) date) F 03/19/22 22:11 unknown) (unknown) (no (unknown) (unknown) Temperature 98.4 (units (unknown) date) F unknown) (unknown) (no (unknown) (unknown) Time Seen by (units (u nknown) date) Provider: 03/19/22 unknown) 23:54 (unknown) (no (unknown) (unknown) Ur Squamous Epith (units (unknown) date) Cells 0-1 /hpf unknown) (0-5/HPF) (unknown) (no (unknown) (unknown) Urine Bacteria (units (unknown) date) None seen (None) unknown) (unknown) (no (unknown) (unknown) Urine Culture (units ( unknown) date) Stat unknown) (unknown) (no (unknown) (unknown) Urine Dip (units (unkn own) date) unknown) (unknown) (no (unknown) (unknown) Urine Microscopic (units (unknown) date) Stat unknown) (unknown) (no (unknown) (unknown) Urine Mucus 1+ H (units (unknown) date) (Negative) unknown) (unknown) (no (unknown) (unknown) Urine RBC 0-1/hpf (units (unknown) date) (0-5/HPF) unknown) (unknown) (no (unknown) (unknown) Urine Specific (units (unknown) date) [place] 1.030 unknown) (unknown) (no (unknown) (unknown) Urine WBC 0-1/hpf (units (unknown) date) (0-5/HPF) unknown) (unknown) (no (unknown) (unknown) Vital Signs - 8 (units (unknown) date) hr unknown) (unknown) (no (unknown) (unknown) Vital Signs (units (un known) date) unknown) (unknown) (no (unknown) (unknown) Vital signs: (units (u nknown) date) unknown) (unknown) (no (unknown) (unknown) Xulane 150-35 (units ( unknown) date) mcg/24 hr patch unknown) weekly (unknown) (no (unknown) (unknown) acetaminophen (units ( unknown) date) [From Percocet] unknown) AdvReac Intermediate Vomiting Verified 02/03/22 (unknown) (no (unknown) (unknown) alcohol intake (units (unknown) date) frequency: unknown) holidays/special occasions only (unknown) (no (unknown) (unknown) alcohol intake: (units (unknown) date) current unknown) (unknown) (no (unknown) (unknown) apply once weekly (units (unknown) date) for 3 weeks of a unknown) 4-week cycle (unknown) (no (unknown) (unknown) household (units (unkn own) date) members: unknown) significant other (unknown) (no (unknown) (unknown) hydrocodone [From (units (unknown) date) Vicodin] AdvReac unknown) Nausea Verified 02/03/22 14:39 (unknown) (no (unknown) (unknown) marital status: (units (unknown) date) unknown) (unknown) (no (unknown) (unknown) norelgestromin (units (unknown) date) 150 unknown) mcg-e.estradiol 1 patch transdermal QWEEK #3 ea 12/22/21 (unknown) (no (unknown) (unknown) oxycodone [From (units (unknown) date) Percocet] AdvReac unknown) Intermediate Vomiting Verified 02/03/22 14:39 (unknown) (no (unknown) (unknown) patch (Xulane) (units (unknown) date) unknown) (unknown) (no (unknown) (unknown) substance use (units ( unknown) date) type: marijuana unknown) Result panel 81 (unknown) (no date) (unknown) (unknown) 0.8 % (unkn own) (unknown) (no date) (unknown) (unknown) 100 /ul (unkn own) (unknown) (no date) (unknown) (unknown) 12.0 g/dl (unkn own) (unknown) (no date) (unknown) (unknown) 13.0 % (unkn own) (unknown) (no date) (unknown) (unknown) 288 x10 3/ul (unkn own) (unknown) (no date) (unknown) (unknown) 29.3 pg (unkn own) (unknown) (no date) (unknown) (unknown) 3100 /ul (unkn own) (unknown) (no date) (unknown) (unknown) 34.3 % (unkn own) (unknown) (no date) (unknown) (unknown) 34.9 % (unkn own) (unknown) (no date) (unknown) (unknown) 36.8 % (unkn own) (unknown) (no date) (unknown) (unknown) 4.08 x10 6/ul (unkn own) (unknown) (no date) (unknown) (unknown) 4.9 % (unkn own) (unknown) (no date) (unknown) (unknown) 400 /ul (unkn own) (unknown) (no date) (unknown) (unknown) 4400 /ul (unkn own) (unknown) (no date) (unknown) (unknown) 5.9 % (unkn own) (unknown) (no date) (unknown) (unknown) 500 /ul (unkn own) (unknown) (no date) (unknown) (unknown) 51.6 % (unkn own) (unknown) (no date) (unknown) (unknown) 8.5 x10 3/ul (unkn own) (unknown) (no date) (unknown) (unknown) 85.6 fl (unkn own) Result panel 82 (unknown) (no date) (unknown) (unknown) > 60 ml/min (unkn own) (unknown) (no date) (unknown) (unknown) > 60 ml/min (unkn own) (unknown) (no date) (unknown) (unknown) 0.2 mg/dl (unkn own) (unknown) (no date) (unknown) (unknown) 0.47 mg/dl (unkn own) (unknown) (no date) (unknown) (unknown) 1.5 (units unknown) (unknown) (unknown) (no date) (unknown) (unknown) 102 mmol/l (unkn own) (unknown) (no date) (unknown) (unknown) 130 mg/dl (unkn own) (unknown) (no date) (unknown) (unknown) 130 mg/dl (unkn own) (unknown) (no date) (unknown) (unknown) 136 mmol/l (unkn own) (unknown) (no date) (unknown) (unknown) 14 iu/l (unkn own) (unknown) (no date) (unknown) (unknown) 15 mg/dl (unkn own) (unknown) (no date) (unknown) (unknown) 18 iu/l (unkn own) (unknown) (no date) (unknown) (unknown) 26 mmol/l (unkn own) (unknown) (no date) (unknown) (unknown) 3.0 g/dl (unkn own) (unknown) (no date) (unknown) (unknown) 3.5 mmol/l (unkn own) (unknown) (no date) (unknown) (unknown) 31.9 (units unknown) (unknown) (unknown) (no date) (unknown) (unknown) 4.5 g/dl (unkn own) (unknown) (no date) (unknown) (unknown) 63 u/l (unkn own) (unknown) (no date) (unknown) (unknown) 7.5 g/dl (unkn own) (unknown) (no date) (unknown) (unknown) 8.9 mg/dl (unkn own) (unknown) (no date) (unknown) (unknown) 85 u/l (unkn own) Result panel 83 (unknown) (no (unknown) (unknown) (no value) (units (unk nown) date) unknown) (unknown) (no (unknown) (unknown) [id number] (units (unkno wn) date) unknown) (unknown) (no (unknown) (unknown) 1 patch (units (unkno wn) date) transdermal QWEEK unknown) Qty: 3 1RF (unknown) (no (unknown) (unknown) 03/19/22 03/20/22 (units (unknown) date) 03/20/22 unknown) Range/Units (unknown) (no (unknown) (unknown) 03/19/22 22:31 (units (unknown) date) unknown) (unknown) (no (unknown) (unknown) 03/19/22 23:55 (units (unknown) date) unknown) (unknown) (no (unknown) (unknown) 03/19/22 (units (unkno wn) date) unknown) (unknown) (no (unknown) (unknown) 03/20/22 00:57 (units (unknown) date) unknown) (unknown) (no (unknown) (unknown) 14:39 (units (unkno wn) date) unknown) (unknown) (no (unknown) (unknown) 22:11 (units (unkno wn) date) unknown) (unknown) (no (unknown) (unknown) 22:31 00:57 00:57 (units (unknown) date) unknown) (unknown) (no (unknown) (unknown) 35 mcg/24 hr (units (u nknown) date) weekly transderm unknown) (unknown) (no (unknown) (unknown) ALT 14 (<35) IU/L (units (unknown) date) unknown) (unknown) (no (unknown) (unknown) AST 18 (14-36) (units (unknown) date) IU/L unknown) (unknown) (no (unknown) (unknown) Activity (units (unkno wn) date) Restrictions/Addit unknown) ional Instructions: (unknown) (no (unknown) (unknown) Age/Sex: 37 / F (units (unknown) date) unknown) (unknown) (no (unknown) (unknown) Albumin 4.5 (units (un known) date) (3.5-5.0) g/dL unknown) (unknown) (no (unknown) (unknown) Albumin/Globulin (units (unknown) date) Ratio 1.5 unknown) (1.0-2.8) (unknown) (no (unknown) (unknown) Alkaline (units (unkno wn) date) Phosphatase 85 unknown) (38-126) U/L (unknown) (no (unknown) (unknown) Allergies (units (unkn own) date) unknown) (unknown) (no (unknown) (unknown) Allergy/AdvReac (units (unknown) date) Type Severity unknown) Reaction Status Date / Time (unknown) (no (unknown) (unknown) BUN 15 (7-17) (units ( unknown) date) mg/dL unknown) (unknown) (no (unknown) (unknown) BUN/Creatinine (units (unknown) date) Ratio 31.9 H unknown) (6-22) (unknown) (no (unknown) (unknown) Baso # (Auto) 100 (units (unknown) date) (0-100) /uL unknown) (unknown) (no (unknown) (unknown) Baso % (Auto) 0.8 (units (unknown) date) (0-2) % unknown) (unknown) (no (unknown) (unknown) Bedside Urine (units ( unknown) date) Bilirubin - unknown) Negative (unknown) (no (unknown) (unknown) Bedside Urine (units ( unknown) date) Glucose Negative unknown) (unknown) (no (unknown) (unknown) Bedside Urine (units ( unknown) date) Ketone +/- 5 unknown) (unknown) (no (unknown) (unknown) Bedside Urine (units ( unknown) date) Leukocytes - unknown) Negative (unknown) (no (unknown) (unknown) Bedside Urine (units ( unknown) date) Nitrite - Negative unknown) (unknown) (no (unknown) (unknown) Bedside Urine (units ( unknown) date) Occult Blood unknown) (unknown) (no (unknown) (unknown) Bedside Urine (units ( unknown) date) Protein - Negative unknown) (unknown) (no (unknown) (unknown) Bedside Urine (units ( unknown) date) Urobilinogen - unknown) Negative (unknown) (no (unknown) (unknown) Bedside Urine pH (units (unknown) date) 5.5 unknown) (unknown) (no (unknown) (unknown) Blood Pressure (units (unknown) date) 121/58 L 03/19/22 unknown) 22:11 (unknown) (no (unknown) (unknown) Blood Pressure (units (unknown) date) 121/58 L unknown) (unknown) (no (unknown) (unknown) Bright red rectal (units (unknown) date) bleeding unknown) 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 (unknown) (no (unknown) (unknown) CT kidney ureter (units (unknown) date) bladder (KUB) Stat unknown) (unknown) (no (unknown) (unknown) Calcium 8.9 (units (un known) date) (8.4-10.2) mg/dL unknown) (unknown) (no (unknown) (unknown) Calcium Oxalate (units (unknown) date) Crystal Few H unknown) (unknown) (no (unknown) (unknown) Carbon Dioxide 26 (units (unknown) date) (22-32) mmol/L unknown) (unknown) (no (unknown) (unknown) Chest pain (units (unk nown) date) unknown) (unknown) (no (unknown) (unknown) Chief Complaint: (units (unknown) date) Back Pain/Injury unknown) (unknown) (no (unknown) (unknown) Chlamydia (units (unkn own) date) unknown) (unknown) (no (unknown) (unknown) Chloride 102 (units (u nknown) date) (98-107) mmol/L unknown) (unknown) (no (unknown) (unknown) Clinical (units (unkno wn) date) Impression: unknown) (unknown) (no (unknown) (unknown) Complete Blood (units (unknown) date) Count AUTO DIFF unknown) Stat (unknown) (no (unknown) (unknown) Comprehensive (units ( unknown) date) Metabolic Panel unknown) Stat (unknown) (no (unknown) (unknown) Costochondritis (units (unknown) date) unknown) (unknown) (no (unknown) (unknown) Course (units (unkno wn) date) unknown) (unknown) (no (unknown) (unknown) Creatinine 0.47 L (units (unknown) date) (0.52-1.04) mg/dL unknown) (unknown) (no (unknown) (unknown) Current smoker (units (unknown) date) unknown) (unknown) (no (unknown) (unknown) Cyst of left (units (u nknown) date) ovary unknown) (unknown) (no (unknown) (unknown) : 1985 (units (unknown) date) Acct:[id number] unknown) (unknown) (no (unknown) (unknown) Date of Service: (units (unknown) date) 03/19/22 unknown) (unknown) (no (unknown) (unknown) Departure (units (unkn own) date) unknown) (unknown) (no (unknown) (unknown) Diarrhea (units (unkno wn) date) unknown) (unknown) (no (unknown) (unknown) Discharge Plan (units (unknown) date) unknown) (unknown) (no (unknown) (unknown) Dyspareunia (units (un known) date) unknown) (unknown) (no (unknown) (unknown) ED Orders (units (unkn own) date) unknown) (unknown) (no (unknown) (unknown) ER Physician: (units ( unknown) date) Chas Reece unknown) D.O. (unknown) (no (unknown) (unknown) Ectopic breast (units (unknown) date) tissue (12/23/17) unknown) (unknown) (no (unknown) (unknown) Emergency Report (units (unknown) date) unknown) (unknown) (no (unknown) (unknown) Eos # (Auto) 400 (units (unknown) date) (0-450) /uL unknown) (unknown) (no (unknown) (unknown) Eos % (Auto) 4.9 (units (unknown) date) H (2-4) % unknown) (unknown) (no (unknown) (unknown) Esterase (units (unkno wn) date) unknown) (unknown) (no (unknown) (unknown) Estimated GFR > (units (unknown) date) 60 (>60) mL/min unknown) (unknown) (no (unknown) (unknown) Exam (units (unkno wn) date) unknown) (unknown) (no (unknown) (unknown) Excessive flatus (units (unknown) date) unknown) (unknown) (no (unknown) (unknown) Family History (units (unknown) date) (Reviewed 12/26/21 unknown) @ 11:30 by CHANDU Mclaughlin) (unknown) (no (unknown) (unknown) General (units (unkno wn) date) unknown) (unknown) (no (unknown) (unknown) Globulin 3.0 (units (u nknown) date) (1.7-4.1) g/dL unknown) (unknown) (no (unknown) (unknown) Glucose 130 H (units ( unknown) date) (70-100) mg/dL unknown) (unknown) (no (unknown) (unknown) H/O dilation and (units (unknown) date) curettage unknown) (unknown) (no (unknown) (unknown) HPI - Back (units (unk nown) date) Pain/Injury unknown) (unknown) (no (unknown) (unknown) HPV in female (units ( unknown) date) unknown) (unknown) (no (unknown) (unknown) Hct 34.9 L (units (unk nown) date) (36-46) % unknown) (unknown) (no (unknown) (unknown) Heartburn (units (unkn own) date) unknown) (unknown) (no (unknown) (unknown) Hgb 12.0 (units (unkno wn) date) (12.0-16.0) g/dL unknown) (unknown) (no (unknown) (unknown) History of (units (unk nown) date) bladder surgery unknown) (unknown) (no (unknown) (unknown) History of breast (units (unknown) date) lump/mass excision unknown) (unknown) (no (unknown) (unknown) History of loop (units (unknown) date) electrical unknown) excision procedure (LEEP) (unknown) (no (unknown) (unknown) Hypertension (units (u nknown) date) unknown) (unknown) (no (unknown) (unknown) I do recommend (units (unknown) date) that you contact unknown) your primary doctor for a follow-up. Return to (unknown) (no (unknown) (unknown) Initial Vital (units ( unknown) date) Signs unknown) (unknown) (no (unknown) (unknown) Initial Vital (units ( unknown) date) Signs: unknown) (unknown) (no (unknown) (unknown) [facility] (units (unknown) date) [address] unknown) [place] [address] (unknown) (no (unknown) (unknown) LLQ abdominal (units ( unknown) date) pain unknown) (unknown) (no (unknown) (unknown) Lab Data (units (unkno wn) date) unknown) (unknown) (no (unknown) (unknown) Lab Results (units (un known) date) unknown) (unknown) (no (unknown) (unknown) Labs: (units (unkno wn) date) unknown) (unknown) (no (unknown) (unknown) Left flank pain, (units (unknown) date) Hematuria unknown) (unknown) (no (unknown) (unknown) Lipase 63 (units (unkn own) date) (23-300) U/L unknown) (unknown) (no (unknown) (unknown) Lipase Stat (units (un known) date) unknown) (unknown) (no (unknown) (unknown) Lymph # (Auto) (units (unknown) date) 3100 (3438-0784) unknown) /uL (unknown) (no (unknown) (unknown) Lymph % (Auto) (units (unknown) date) 36.8 (25-40) % unknown) (unknown) (no (unknown) (unknown) Lymphadenopathy (units (unknown) date) unknown) (unknown) (no (unknown) (unknown) MCH 29.3 (26-34) (units (unknown) date) PG unknown) (unknown) (no (unknown) (unknown) MCHC 34.3 (30-36) (units (unknown) date) % unknown) (unknown) (no (unknown) (unknown) MCV 85.6 (80-100) (units (unknown) date) fL unknown) (unknown) (no (unknown) (unknown) MDM - Back (units (unk nown) date) Pain/Injury unknown) (unknown) (no (unknown) (unknown) Medical History (units (unknown) date) (Reviewed 12/26/21 unknown) @ 11:30 by CHANDU Mclaughlin) (unknown) (no (unknown) (unknown) Medication (units (unk nown) date) Instructions unknown) Recorded (unknown) (no (unknown) (unknown) Micro UA Comment (units (unknown) date) * unknown) (unknown) (no (unknown) (unknown) Migraine (units (unkno wn) date) unknown) (unknown) (no (unknown) (unknown) [place] # (Auto) 500 (units (unknown) date) (0-900) /uL unknown) (unknown) (no (unknown) (unknown) [place] % (Auto) 5.9 (units (unknown) date) (3-14) % unknown) (unknown) (no (unknown) (unknown) Nausea (units (unkno wn) date) unknown) (unknown) (no (unknown) (unknown) Neut # (Auto) (units ( unknown) date) 4400 ([id number]) unknown) /uL (unknown) (no (unknown) (unknown) Neut % (Auto) (units ( unknown) date) 51.6 (50-75) % unknown) (unknown) (no (unknown) (unknown) No Action (units (unkn own) date) unknown) (unknown) (no (unknown) (unknown) Ordered: (units (unkno wn) date) unknown) (unknown) (no (unknown) (unknown) Orders (units (unkno wn) date) unknown) (unknown) (no (unknown) (unknown) Other Diabetes (units (unknown) date) mellitus unknown) (unknown) (no (unknown) (unknown) Oxygen Delivery (units (unknown) date) Method 03/19/22 unknown) 22:11 (unknown) (no (unknown) (unknown) Oxygen Delivery (units (unknown) date) Method Room Air unknown) (unknown) (no (unknown) (unknown) Patient (units (unkno wn) date) Disposition: Home unknown) (unknown) (no (unknown) (unknown) Patient History (units (unknown) date) unknown) (unknown) (no (unknown) (unknown) Patient: (units (unkno wn) date) Elly Resendiz Solomon unknown) MR#: [id number] (unknown) (no (unknown) (unknown) Pelvic pain in (units (unknown) date) female unknown) (unknown) (no (unknown) (unknown) Plt Count 288 (units ( unknown) date) (150-400) X103/uL unknown) (unknown) (no (unknown) (unknown) Point of Care (units ( unknown) date) Testing unknown) (unknown) (no (unknown) (unknown) Potassium 3.5 (units ( unknown) date) (3.4-5.1) mmol/L unknown) (unknown) (no (unknown) (unknown) Test (units (unknown) date) Results Negative unknown) (unknown) (no (unknown) (unknown) Prescriptions: (units (unknown) date) unknown) (unknown) (no (unknown) (unknown) Previous Rx's (units ( unknown) date) unknown) (unknown) (no (unknown) (unknown) Pulse Oximetry (units (unknown) date) 100 03/19/22 22:11 unknown) (unknown) (no (unknown) (unknown) Pulse Oximetry (units (unknown) date) 100 unknown) (unknown) (no (unknown) (unknown) Pulse Rate 97 H (units (unknown) date) 03/19/22 22:11 unknown) (unknown) (no (unknown) (unknown) Pulse Rate 97 H (units (unknown) date) unknown) (unknown) (no (unknown) (unknown) Pyelonephritis (units (unknown) date) unknown) (unknown) (no (unknown) (unknown) RBC 4.08 (units (unkno wn) date) (4.0-5.2) X106/uL unknown) (unknown) (no (unknown) (unknown) RDW 13.0 (units (unkno wn) date) (11.6-14.8) % unknown) (unknown) (no (unknown) (unknown) Referral of (units (un known) date) patient unknown) (unknown) (no (unknown) (unknown) Referrals: (units (unk nown) date) unknown) (unknown) (no (unknown) (unknown) Related Data (units (u nknown) date) unknown) (unknown) (no (unknown) (unknown) Respiratory Rate (units (unknown) date) 18 03/19/22 22:11 unknown) (unknown) (no (unknown) (unknown) Respiratory Rate (units (unknown) date) 18 unknown) (unknown) (no (unknown) (unknown) Result diagrams: (units (unknown) date) unknown) (unknown) (no (unknown) (unknown) Rx Instructions: (units (unknown) date) unknown) (unknown) (no (unknown) (unknown) Mey Pelaez DO (units (unknown) date) [Primary Care unknown) Provider] (unknown) (no (unknown) (unknown) Signed By: (units (unk nown) date) unknown) (unknown) (no (unknown) (unknown) Smoking Status: (units (unknown) date) Former smoker unknown) (unknown) (no (unknown) (unknown) Social History (units (unknown) date) (System 06/13/19 @ unknown) 08:19 by Susie Lino) (unknown) (no (unknown) (unknown) Sodium 136 L (units (u nknown) date) (137-145) mmol/L unknown) (unknown) (no (unknown) (unknown) Source: patient (units (unknown) date) unknown) (unknown) (no (unknown) (unknown) Stand Alone (units (un known) date) Forms: Patient unknown) Portal/API (unknown) (no (unknown) (unknown) Stated Complaint: (units (unknown) date) back pain mostly unknown) left side (unknown) (no (unknown) (unknown) Substance Use (units ( unknown) date) Type: marijuana unknown) (unknown) (no (unknown) (unknown) Surgical History (units (unknown) date) (Reviewed 12/26/21 unknown) @ 11:30 by CHANDU Mclaughlin) (unknown) (no (unknown) (unknown) Temperature 98.4 (units (unknown) date) F 03/19/22 22:11 unknown) (unknown) (no (unknown) (unknown) Temperature 98.4 (units (unknown) date) F unknown) (unknown) (no (unknown) (unknown) Time Seen by (units (u nknown) date) Provider: 03/19/22 unknown) 23:54 (unknown) (no (unknown) (unknown) Total Bilirubin (units (unknown) date) 0.2 (0.2-1.3) unknown) mg/dL (unknown) (no (unknown) (unknown) Total Protein 7.5 (units (unknown) date) (6.3-8.2) g/dL unknown) (unknown) (no (unknown) (unknown) Ur Squamous Epith (units (unknown) date) Cells 0-1 /hpf unknown) (0-5/HPF) (unknown) (no (unknown) (unknown) Urine Bacteria (units (unknown) date) None seen (None) unknown) (unknown) (no (unknown) (unknown) Urine Culture (units ( unknown) date) Stat unknown) (unknown) (no (unknown) (unknown) Urine Dip (units (unkn own) date) unknown) (unknown) (no (unknown) (unknown) Urine Microscopic (units (unknown) date) Stat unknown) (unknown) (no (unknown) (unknown) Urine Mucus 1+ H (units (unknown) date) (Negative) unknown) (unknown) (no (unknown) (unknown) Urine RBC 0-1/hpf (units (unknown) date) (0-5/HPF) unknown) (unknown) (no (unknown) (unknown) Urine Specific (units (unknown) date) [place] 1.030 unknown) (unknown) (no (unknown) (unknown) Urine WBC 0-1/hpf (units (unknown) date) (0-5/HPF) unknown) (unknown) (no (unknown) (unknown) Vital Signs - 8 (units (unknown) date) hr unknown) (unknown) (no (unknown) (unknown) Vital Signs (units (un known) date) unknown) (unknown) (no (unknown) (unknown) Vital signs: (units (u nknown) date) unknown) (unknown) (no (unknown) (unknown) WBC 8.5 (units (unkno wn) date) (4.5-11.0) X103/uL unknown) (unknown) (no (unknown) (unknown) Xulane 150-35 (units ( unknown) date) mcg/24 hr patch unknown) weekly (unknown) (no (unknown) (unknown) [Embedded Image (units (unknown) date) Not Available] unknown) (unknown) (no (unknown) (unknown) acetaminophen (units ( unknown) date) [From Percocet] unknown) AdvReac Intermediate Vomiting Verified 02/03/22 (unknown) (no (unknown) (unknown) alcohol intake (units (unknown) date) frequency: unknown) holidays/special occasions only (unknown) (no (unknown) (unknown) alcohol intake: (units (unknown) date) current unknown) (unknown) (no (unknown) (unknown) apply once weekly (units (unknown) date) for 3 weeks of a unknown) 4-week cycle (unknown) (no (unknown) (unknown) household (units (unkn own) date) members: unknown) significant other (unknown) (no (unknown) (unknown) hydrocodone [From (units (unknown) date) Vicodin] AdvReac unknown) Nausea Verified 02/03/22 14:39 (unknown) (no (unknown) (unknown) marital status: (units (unknown) date) unknown) (unknown) (no (unknown) (unknown) norelgestromin (units (unknown) date) 150 unknown) mcg-e.estradiol 1 patch transdermal QWEEK #3 ea 12/22/21 (unknown) (no (unknown) (unknown) oxycodone [From (units (unknown) date) Percocet] AdvReac unknown) Intermediate Vomiting Verified 02/03/22 14:39 (unknown) (no (unknown) (unknown) patch (Xulane) (units (unknown) date) unknown) (unknown) (no (unknown) (unknown) substance use (units ( unknown) date) type: marijuana unknown) (unknown) (no (unknown) (unknown) the emergency (units ( unknown) date) department for any unknown) new or worsening symptoms. Result panel 84 (unknown) (no (unknown) (unknown) (no value) (units (unk nown) date) unknown) (unknown) (no (unknown) (unknown) [id number] (units (unkno wn) date) unknown) (unknown) (no (unknown) (unknown) 1 patch (units (unkno wn) date) transdermal QWEEK unknown) Qty: 3 1RF (unknown) (no (unknown) (unknown) 1.9 cm right (units (u nknown) date) ovarian cyst. unknown) (unknown) (no (unknown) (unknown) 03/19/22 03/20/22 (units (unknown) date) 03/20/22 unknown) Range/Units (unknown) (no (unknown) (unknown) 03/19/22 22:31 (units (unknown) date) unknown) (unknown) (no (unknown) (unknown) 03/19/22 23:55 (units (unknown) date) unknown) (unknown) (no (unknown) (unknown) 03/19/22 (units (unkno wn) date) unknown) (unknown) (no (unknown) (unknown) 03/20/22 00:57 (units (unknown) date) unknown) (unknown) (no (unknown) (unknown) [address] [place] [address] (units (unknown) date) unknown) (unknown) (no (unknown) (unknown) 14:39 (units (unkno wn) date) unknown) (unknown) (no (unknown) (unknown) 22:11 (units (unkno wn) date) unknown) (unknown) (no (unknown) (unknown) 22:31 00:57 00:57 (units (unknown) date) unknown) (unknown) (no (unknown) (unknown) 35 mcg/24 hr (units (u nknown) date) weekly transderm unknown) (unknown) (no (unknown) (unknown) ? (units (unkno wn) date) unknown) (unknown) (no (unknown) (unknown) ?automated (units (unk nown) date) exposure control, unknown) adjustment of mA and/or kV according to patient (unknown) (no (unknown) (unknown) ABDOMEN: (units (unkno wn) date) unknown) (unknown) (no (unknown) (unknown) ALT 14 (<35) IU/L (units (unknown) date) unknown) (unknown) (no (unknown) (unknown) AST 18 (14-36) (units (unknown) date) IU/L unknown) (unknown) (no (unknown) (unknown) Abdominal Nodes:? (units (unknown) date) No enlarged unknown) retroperitoneal or mesenteric lymph nodes.? (unknown) (no (unknown) (unknown) Accession Number: (units (unknown) date) [id number] ?? unknown) (unknown) (no (unknown) (unknown) Acct:[id number] (units (unknown) date) unknown) (unknown) (no (unknown) (unknown) Activity (units (unkno wn) date) Restrictions/Addit unknown) ional Instructions: (unknown) (no (unknown) (unknown) Adrenal Glands:? (units (unknown) date) Unremarkable.? ? unknown) (unknown) (no (unknown) (unknown) Age/Sex: 37 / F (units (unknown) date) unknown) (unknown) (no (unknown) (unknown) Albumin 4.5 (units (un known) date) (3.5-5.0) g/dL unknown) (unknown) (no (unknown) (unknown) Albumin/Globulin (units (unknown) date) Ratio 1.5 unknown) (1.0-2.8) (unknown) (no (unknown) (unknown) Alkaline (units (unkno wn) date) Phosphatase 85 unknown) (38-126) U/L (unknown) (no (unknown) (unknown) Allergies (units (unkn own) date) unknown) (unknown) (no (unknown) (unknown) Allergy/AdvReac (units (unknown) date) Type Severity unknown) Reaction Status Date / Time (unknown) (no (unknown) (unknown) CORINA Spears (units ( unknown) date) [id number] unknown) (unknown) (no (unknown) (unknown) Approved by: (units (u nknown) date) Kay Titus M.D. unknown) on 03/20/2022 at 0:30?? (unknown) (no (unknown) (unknown) Attestation: I (units (unknown) date) reviewed the unknown) patient's lab results. (unknown) (no (unknown) (unknown) Axial sections (units (unknown) date) were acquired from unknown) the lung bases to the pubic symphysis.? (unknown) (no (unknown) (unknown) BUN 15 (7-17) (units ( unknown) date) mg/dL unknown) (unknown) (no (unknown) (unknown) BUN/Creatinine (units (unknown) date) Ratio 31.9 H unknown) (6-22) (unknown) (no (unknown) (unknown) Baso # (Auto) 100 (units (unknown) date) (0-100) /uL unknown) (unknown) (no (unknown) (unknown) Baso % (Auto) 0.8 (units (unknown) date) (0-2) % unknown) (unknown) (no (unknown) (unknown) Bedside Urine (units ( unknown) date) Bilirubin - unknown) Negative (unknown) (no (unknown) (unknown) Bedside Urine (units ( unknown) date) Glucose Negative unknown) (unknown) (no (unknown) (unknown) Bedside Urine (units ( unknown) date) Ketone +/- 5 unknown) (unknown) (no (unknown) (unknown) Bedside Urine (units ( unknown) date) Leukocytes - unknown) Negative (unknown) (no (unknown) (unknown) Bedside Urine (units ( unknown) date) Nitrite - Negative unknown) (unknown) (no (unknown) (unknown) Bedside Urine (units ( unknown) date) Occult Blood unknown) (unknown) (no (unknown) (unknown) Bedside Urine (units ( unknown) date) Protein - Negative unknown) (unknown) (no (unknown) (unknown) Bedside Urine (units ( unknown) date) Urobilinogen - unknown) Negative (unknown) (no (unknown) (unknown) Bedside Urine pH (units (unknown) date) 5.5 unknown) (unknown) (no (unknown) (unknown) Biliary ducts:? (units (unknown) date) Unremarkable.? ? unknown) (unknown) (no (unknown) (unknown) Bladder:? Normal (units (unknown) date) wall thickness. No unknown) stones. ? ? (unknown) (no (unknown) (unknown) Blood Pressure (units (unknown) date) 121/58 L 03/19/22 unknown) 22:11 (unknown) (no (unknown) (unknown) Blood Pressure (units (unknown) date) 121/58 L unknown) (unknown) (no (unknown) (unknown) Bones:? (units (unkno wn) date) Unremarkable. 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 CT, (units (unknown) date) CT ABDOMEN PELVIS unknown) W CON, 09/11/2020, 16:50. (unknown) (no (unknown) (unknown) CT Scan Report (units (unknown) date) unknown) (unknown) (no (unknown) (unknown) CT kidney ureter (units (unknown) date) bladder (KUB) Stat unknown) (unknown) (no (unknown) (unknown) CT scan - (units (unkn own) date) abdomen/pelvis: unknown) (unknown) (no (unknown) (unknown) Calcium 8.9 (units (un known) date) (8.4-10.2) mg/dL unknown) (unknown) (no (unknown) (unknown) Calcium Oxalate (units (unknown) date) [place] H unknown) (unknown) (no (unknown) (unknown) Carbon Dioxide 26 (units (unknown) date) (22-32) mmol/L unknown) (unknown) (no (unknown) (unknown) Chest pain (units (unk nown) date) unknown) (unknown) (no (unknown) (unknown) Chief Complaint: (units (unknown) date) Back Pain/Injury unknown) (unknown) (no (unknown) (unknown) Chlamydia (units (unkn own) date) unknown) (unknown) (no (unknown) (unknown) Chloride 102 (units (u nknown) date) (98-107) mmol/L unknown) (unknown) (no (unknown) (unknown) Clinical (units (unkno wn) date) Impression: unknown) (unknown) (no (unknown) (unknown) Complete Blood (units (unknown) date) Count AUTO DIFF unknown) Stat (unknown) (no (unknown) (unknown) Comprehensive (units ( unknown) date) Metabolic Panel unknown) Stat (unknown) (no (unknown) (unknown) Coronal and (units (un known) date) unknown) (unknown) (no (unknown) (unknown) Costochondritis (units (unknown) date) unknown) (unknown) (no (unknown) (unknown) Course (units (unkno wn) date) unknown) (unknown) (no (unknown) (unknown) Creatinine 0.47 L (units (unknown) date) (0.52-1.04) mg/dL unknown) (unknown) (no (unknown) (unknown) Current smoker (units (unknown) date) unknown) (unknown) (no (unknown) (unknown) Cyst of left (units (u nknown) date) ovary unknown) (unknown) (no (unknown) (unknown) : 1985 (units (unknown) date) Acct:[id number] unknown) (unknown) (no (unknown) (unknown) : 1985 (units (unknown) date) unknown) (unknown) (no (unknown) (unknown) Date of Service: (units (unknown) date) 03/19/22 unknown) (unknown) (no (unknown) (unknown) Departure (units (unkn own) date) unknown) (unknown) (no (unknown) (unknown) Diarrhea (units (unkno wn) date) unknown) (unknown) (no (unknown) (unknown) Dictated by: (units (u nknown) date) Kay Titus M.D. unknown) on 03/20/2022 at 0:28 ? ? (unknown) (no (unknown) (unknown) Discharge Plan (units (unknown) date) unknown) (unknown) (no (unknown) (unknown) Dyspareunia (units (un known) date) unknown) (unknown) (no (unknown) (unknown) ED Orders (units (unkn own) date) unknown) (unknown) (no (unknown) (unknown) ER Physician: (units ( unknown) date) Chas Reece unknown) D.O. (unknown) (no (unknown) (unknown) Ectopic breast (units (unknown) date) tissue (12/23/17) unknown) (unknown) (no (unknown) (unknown) Emergency Report (units (unknown) date) unknown) (unknown) (no (unknown) (unknown) Eos # (Auto) 400 (units (unknown) date) (0-450) /uL unknown) (unknown) (no (unknown) (unknown) Eos % (Auto) 4.9 (units (unknown) date) H (2-4) % unknown) (unknown) (no (unknown) (unknown) Esterase (units (unkno wn) date) unknown) (unknown) (no (unknown) (unknown) Estimated GFR > (units (unknown) date) 60 (>60) mL/min unknown) (unknown) (no (unknown) (unknown) Exam (units (unkno wn) date) unknown) (unknown) (no (unknown) (unknown) Excessive flatus (units (unknown) date) unknown) (unknown) (no (unknown) (unknown) FINDINGS:? (units (unk nown) date) unknown) (unknown) (no (unknown) (unknown) Family History (units (unknown) date) (Reviewed 12/26/21 unknown) @ 11:30 by CHANDU Mclaughlin) (unknown) (no (unknown) (unknown) Gallbladder:? (units ( unknown) date) Unremarkable.? ? unknown) (unknown) (no (unknown) (unknown) General (units (unkno wn) date) unknown) (unknown) (no (unknown) (unknown) Globulin 3.0 (units (u nknown) date) (1.7-4.1) g/dL unknown) (unknown) (no (unknown) (unknown) Glucose 130 H (units ( unknown) date) (70-100) mg/dL unknown) (unknown) (no (unknown) (unknown) H/O dilation and (units (unknown) date) curettage unknown) (unknown) (no (unknown) (unknown) HPI - Back (units (unk nown) date) Pain/Injury unknown) (unknown) (no (unknown) (unknown) HPV in female (units ( unknown) date) unknown) (unknown) (no (unknown) (unknown) Hct 34.9 L (units (unk nown) date) (36-46) % unknown) (unknown) (no (unknown) (unknown) Heart:? No (units (unk nown) date) significant unknown) findings. (unknown) (no (unknown) (unknown) Heartburn (units (unkn own) date) unknown) (unknown) (no (unknown) (unknown) Hgb 12.0 (units (unkno wn) date) (12.0-16.0) g/dL unknown) (unknown) (no (unknown) (unknown) History of (units (unk nown) date) bladder surgery unknown) (unknown) (no (unknown) (unknown) History of breast (units (unknown) date) lump/mass excision unknown) (unknown) (no (unknown) (unknown) History of loop (units (unknown) date) electrical unknown) excision procedure (LEEP) (unknown) (no (unknown) (unknown) Hypertension (units (u nknown) date) unknown) (unknown) (no (unknown) (unknown) I do recommend (units (unknown) date) that you contact unknown) your primary doctor for a follow-up. Return to (unknown) (no (unknown) (unknown) IMPRESSION:? (units (u nknown) date) unknown) (unknown) (no (unknown) (unknown) INDICATIONS:? (units ( unknown) date) Left side flank unknown) pain eval for stone (unknown) (no (unknown) (unknown) Image quality:? (units (unknown) date) Excellent.? unknown) (unknown) (no (unknown) (unknown) Imaging Data (units (u nknown) date) unknown) (unknown) (no (unknown) (unknown) Initial Vital (units ( unknown) date) Signs unknown) (unknown) (no (unknown) (unknown) Initial Vital (units ( unknown) date) Signs: unknown) (unknown) (no (unknown) (unknown) [facility] (units (unknown) date) [address] unknown) [place] [address] (unknown) (no (unknown) (unknown) [facility] (units (unknown) date) unknown) (unknown) (no (unknown) (unknown) LLQ abdominal (units ( unknown) date) pain unknown) (unknown) (no (unknown) (unknown) Lab Data (units (unkno wn) date) unknown) (unknown) (no (unknown) (unknown) Lab Results (units (un known) date) unknown) (unknown) (no (unknown) (unknown) Labs: (units (unkno wn) date) unknown) (unknown) (no (unknown) (unknown) Left Kidney: ? No (units (unknown) date) stones or unknown) hydronephrosis. (unknown) (no (unknown) (unknown) Left Ureter:? No (units (unknown) date) hydroureter.? unknown) (unknown) (no (unknown) (unknown) Left flank pain, (units (unknown) date) Hematuria unknown) (unknown) (no (unknown) (unknown) Lipase 63 (units (unkn own) date) (23-300) U/L unknown) (unknown) (no (unknown) (unknown) Lipase Stat (units (un known) date) unknown) (unknown) (no (unknown) (unknown) Liver:? (units (unkno wn) date) Unremarkable.? ? unknown) (unknown) (no (unknown) (unknown) Loc: ED (units (unkno wn) date) unknown) (unknown) (no (unknown) (unknown) Lung bases:? (units (u nknown) date) Unremarkable.? ? unknown) (unknown) (no (unknown) (unknown) Lymph # (Auto) (units (unknown) date) 3100 (0534-9931) unknown) /uL (unknown) (no (unknown) (unknown) Lymph % (Auto) (units (unknown) date) 36.8 (25-40) % unknown) (unknown) (no (unknown) (unknown) Lymphadenopathy (units (unknown) date) unknown) (unknown) (no (unknown) (unknown) MCH 29.3 (26-34) (units (unknown) date) PG unknown) (unknown) (no (unknown) (unknown) MCHC 34.3 (30-36) (units (unknown) date) % unknown) (unknown) (no (unknown) (unknown) MCV 85.6 (80-100) (units (unknown) date) fL unknown) (unknown) (no (unknown) (unknown) MDM - Back (units (unk nown) date) Pain/Injury unknown) (unknown) (no (unknown) (unknown) MR#: [id number] (units (unknown) date) unknown) (unknown) (no (unknown) (unknown) Medical History (units (unknown) date) (Reviewed 12/26/21 unknown) @ 11:30 by CHANDU Mclaughlin) (unknown) (no (unknown) (unknown) Medication (units (unk nown) date) Instructions unknown) Recorded (unknown) (no (unknown) (unknown) Micro UA Comment (units (unknown) date) * unknown) (unknown) (no (unknown) (unknown) Migraine (units (unkno wn) date) unknown) (unknown) (no (unknown) (unknown) Miscellaneous: No (units (unknown) date) inguinal hernias unknown) are seen. ? ? (unknown) (no (unknown) (unknown) [place] # (Auto) 500 (units (unknown) date) (0-900) /uL unknown) (unknown) (no (unknown) (unknown) [place] % (Auto) 5.9 (units (unknown) date) (3-14) % unknown) (unknown) (no (unknown) (unknown) Nausea (units (unkno wn) date) unknown) (unknown) (no (unknown) (unknown) Neut # (Auto) (units ( unknown) date) 4400 (8598-0082) unknown) /uL (unknown) (no (unknown) (unknown) Neut % (Auto) (units ( unknown) date) 51.6 (50-75) % unknown) (unknown) (no (unknown) (unknown) No Action (units (unkn own) date) unknown) (unknown) (no (unknown) (unknown) No renal, (units (unkn own) date) ureteral or unknown) bladder calculi. (unknown) (no (unknown) (unknown) Ordered: (units (unkno wn) date) unknown) (unknown) (no (unknown) (unknown) Ordering (units (unkno wn) date) Provider: unknown) Chas Reece D.O. (unknown) (no (unknown) (unknown) Orders (units (unkno wn) date) unknown) (unknown) (no (unknown) (unknown) Other Diabetes (units (unknown) date) mellitus unknown) (unknown) (no (unknown) (unknown) Oxygen Delivery (units (unknown) date) Method 03/19/22 unknown) 22:11 (unknown) (no (unknown) (unknown) Oxygen Delivery (units (unknown) date) Method Room Air unknown) (unknown) (no (unknown) (unknown) PELVIS: (units (unkno wn) date) unknown) (unknown) (no (unknown) (unknown) PROCEDURE:? CT (units (unknown) date) KIDNEY URETER unknown) BLADDER (KUB) (unknown) (no (unknown) (unknown) Pancreas:? (units (unk nown) date) Unremarkable.? ? unknown) (unknown) (no (unknown) (unknown) Patient (units (unkno wn) date) Disposition: Home unknown) (unknown) (no (unknown) (unknown) Patient History (units (unknown) date) unknown) (unknown) (no (unknown) (unknown) Patient: (units (unkno wn) date) Elly Resendiz unknown) MR#: [id number] (unknown) (no (unknown) (unknown) Patient: (units (unkno wn) date) Elly Resendiz unknown) (unknown) (no (unknown) (unknown) Pelvic Nodes: (units ( unknown) date) Unremarkable. unknown) (unknown) (no (unknown) (unknown) Pelvic Organs:? (units (unknown) date) 1.9 cm focus of unknown) low attenuation is present the right. (unknown) (no (unknown) (unknown) Pelvic pain in (units (unknown) date) female unknown) (unknown) (no (unknown) (unknown) Peritoneum:? No (units (unknown) date) abnormal unknown) intraperitoneal fluid.? No free air.? (unknown) (no (unknown) (unknown) Plt Count 288 (units ( unknown) date) (150-400) X103/uL unknown) (unknown) (no (unknown) (unknown) Point of Care (units ( unknown) date) Testing unknown) (unknown) (no (unknown) (unknown) Potassium 3.5 (units ( unknown) date) (3.4-5.1) mmol/L unknown) (unknown) (no (unknown) (unknown) Test (units (unknown) date) Results Negative unknown) (unknown) (no (unknown) (unknown) Prescriptions: (units (unknown) date) unknown) (unknown) (no (unknown) (unknown) Previous Rx's (units ( unknown) date) unknown) (unknown) (no (unknown) (unknown) Procedure: CT (units ( unknown) date) kidney ureter unknown) bladder (KUB) (unknown) (no (unknown) (unknown) Pulse Oximetry (units (unknown) date) 100 03/19/22 22:11 unknown) (unknown) (no (unknown) (unknown) Pulse Oximetry (units (unknown) date) 100 unknown) (unknown) (no (unknown) (unknown) Pulse Rate 97 H (units (unknown) date) 03/19/22 22:11 unknown) (unknown) (no (unknown) (unknown) Pulse Rate 97 H (units (unknown) date) unknown) (unknown) (no (unknown) (unknown) Pyelonephritis (units (unknown) date) unknown) (unknown) (no (unknown) (unknown) RBC 4.08 (units (unkno wn) date) (4.0-5.2) X106/uL unknown) (unknown) (no (unknown) (unknown) RDW 13.0 (units (unkno wn) date) (11.6-14.8) % unknown) (unknown) (no (unknown) (unknown) Radiologist's (units ( unknown) date) Impression: unknown) (unknown) (no (unknown) (unknown) Referral of (units (un known) date) patient unknown) (unknown) (no (unknown) (unknown) Referrals: (units (unk nown) date) unknown) (unknown) (no (unknown) (unknown) Related Data (units (u nknown) date) unknown) (unknown) (no (unknown) (unknown) Respiratory Rate (units (unknown) date) 18 03/19/22 22:11 unknown) (unknown) (no (unknown) (unknown) Respiratory Rate (units (unknown) date) 18 unknown) (unknown) (no (unknown) (unknown) Result diagrams: (units (unknown) date) unknown) (unknown) (no (unknown) (unknown) Right Kidney: ? (units (unknown) date) No stones or unknown) hydronephrosis.? (unknown) (no (unknown) (unknown) Right Ureter:? No (units (unknown) date) hydroureter.? unknown) (unknown) (no (unknown) (unknown) Rx Instructions: (units (unknown) date) unknown) (unknown) (no (unknown) (unknown) Mey Pelaez DO (units (unknown) date) [Primary Care unknown) Provider] (unknown) (no (unknown) (unknown) Signed By: (units (unk nown) date) unknown) (unknown) (no (unknown) (unknown) Signed (units (unkno wn) date) unknown) (unknown) (no (unknown) (unknown) Smoking Status: (units (unknown) date) Former smoker unknown) (unknown) (no (unknown) (unknown) Social History (units (unknown) date) (System 06/13/19 @ unknown) 08:19 by Susie Lino) (unknown) (no (unknown) (unknown) Sodium 136 L (units (u nknown) date) (137-145) mmol/L unknown) (unknown) (no (unknown) (unknown) Source: patient (units (unknown) date) unknown) (unknown) (no (unknown) (unknown) Spleen:? (units (unkno wn) date) Unremarkable.? ? unknown) (unknown) (no (unknown) (unknown) Stand Alone (units (un known) date) Forms: Patient unknown) Portal/API (unknown) (no (unknown) (unknown) Stated Complaint: (units (unknown) date) back pain mostly unknown) left side (unknown) (no (unknown) (unknown) Stomach and (units (un known) date) Bowel:? Stomach, unknown) small bowel loops, and colon are unremarkable.? (unknown) (no (unknown) (unknown) Substance Use (units ( unknown) date) Type: marijuana unknown) (unknown) (no (unknown) (unknown) Surgical History (units (unknown) date) (Reviewed 12/26/21 unknown) @ 11:30 by CHANDU Mclaughlin) (unknown) (no (unknown) (unknown) TECHNIQUE:? (units (un known) date) unknown) (unknown) (no (unknown) (unknown) Temperature 98.4 (units (unknown) date) F 03/19/22 22:11 unknown) (unknown) (no (unknown) (unknown) Temperature 98.4 (units (unknown) date) F unknown) (unknown) (no (unknown) (unknown) Time Seen by (units (u nknown) date) Provider: 03/19/22 unknown) 23:54 (unknown) (no (unknown) (unknown) Total Bilirubin (units (unknown) date) 0.2 (0.2-1.3) unknown) mg/dL (unknown) (no (unknown) (unknown) Total Protein 7.5 (units (unknown) date) (6.3-8.2) g/dL unknown) (unknown) (no (unknown) (unknown) URINARY: (units (unkno wn) date) unknown) (unknown) (no (unknown) (unknown) Ur Squamous Epith (units (unknown) date) Cells 0-1 /hpf unknown) (0-5/HPF) (unknown) (no (unknown) (unknown) Urine Bacteria (units (unknown) date) None seen (None) unknown) (unknown) (no (unknown) (unknown) Urine Culture (units ( unknown) date) Stat unknown) (unknown) (no (unknown) (unknown) Urine Dip (units (unkn own) date) unknown) (unknown) (no (unknown) (unknown) Urine Microscopic (units (unknown) date) Stat unknown) (unknown) (no (unknown) (unknown) Urine Mucus 1+ H (units (unknown) date) (Negative) unknown) (unknown) (no (unknown) (unknown) Urine RBC 0-1/hpf (units (unknown) date) (0-5/HPF) unknown) (unknown) (no (unknown) (unknown) Urine Specific (units (unknown) date) [place] 1.030 unknown) (unknown) (no (unknown) (unknown) Urine WBC 0-1/hpf (units (unknown) date) (0-5/HPF) unknown) (unknown) (no (unknown) (unknown) Ventral Wall: ? (units (unknown) date) No hernia.? unknown) (unknown) (no (unknown) (unknown) Vessels:? Aorta (units (unknown) date) and inferior vena unknown) cava are normal in size.? (unknown) (no (unknown) (unknown) Vital Signs - 8 (units (unknown) date) hr unknown) (unknown) (no (unknown) (unknown) Vital Signs (units (un known) date) unknown) (unknown) (no (unknown) (unknown) Vital signs: (units (u nknown) date) unknown) (unknown) (no (unknown) (unknown) WBC 8.5 (units (unkno wn) date) (4.5-11.0) X103/uL unknown) (unknown) (no (unknown) (unknown) Xulane 150-35 (units ( unknown) date) mcg/24 hr patch unknown) weekly (unknown) (no (unknown) (unknown) [Embedded Image (units (unknown) date) Not Available] unknown) (unknown) (no (unknown) (unknown) acetaminophen (units ( unknown) date) [From Percocet] unknown) AdvReac Intermediate Vomiting Verified 02/03/22 (unknown) (no (unknown) (unknown) alcohol intake (units (unknown) date) frequency: unknown) holidays/special occasions only (unknown) (no (unknown) (unknown) alcohol intake: (units (unknown) date) current unknown) (unknown) (no (unknown) (unknown) apply once weekly (units (unknown) date) for 3 weeks of a unknown) 4-week cycle (unknown) (no (unknown) (unknown) household (units (unkn own) date) members: unknown) significant other (unknown) (no (unknown) (unknown) hydrocodone [From (units (unknown) date) Vicodin] AdvReac unknown) Nausea Verified 02/03/22 14:39 (unknown) (no (unknown) (unknown) marital status: (units (unknown) date) unknown) (unknown) (no (unknown) (unknown) norelgestromin (units (unknown) date) 150 unknown) mcg-e.estradiol 1 patch transdermal QWEEK #3 ea 12/22/21 (unknown) (no (unknown) (unknown) oxycodone [From (units (unknown) date) Percocet] AdvReac unknown) Intermediate Vomiting Verified 02/03/22 14:39 (unknown) (no (unknown) (unknown) patch (Xulane) (units (unknown) date) unknown) (unknown) (no (unknown) (unknown) sagittal (units (unkno wn) date) reformats were unknown) performed.? For radiation dose reduction, the following (unknown) (no (unknown) (unknown) size.? (units (unkno wn) date) unknown) (unknown) (no (unknown) (unknown) substance use (units ( unknown) date) type: marijuana unknown) (unknown) (no (unknown) (unknown) the emergency (units ( unknown) date) department for any unknown) new or worsening symptoms. (unknown) (no (unknown) (unknown) was used: (units (unkn own) date) unknown) Result panel 85 (unknown) (no date) (unknown) (unknown) No growth. (units (un known) unknown) Result panel 86 (unknown) (no date) (unknown) (unknown) No growth. (units (un known) unknown) Social History date description facility 2022-02-03 00:00 Ex-smoker (finding) [facility] 2022-03-19 00:00 Ex-smoker (finding) [facility] Vital Signs date measurement value units 2022-02-03 00:00 BP_diastolic 72 mmHg 2022-02-03 00:00 BP_systolic 108 mmHg 2022-02-03 00:00 heart_rate 83 /min 2022-02-03 00:00 o2_saturation 100 % 2022-02-03 00:00 temperature_metric 36.33 C 2022-02-03 00:00 temperature_standard 97.4 F 2022-02-03 00:00 weight_metric 61.23 kg 2022-02-03 00:00 weight_standard 134.99 lb 2022-03-19 00:00 BMI 26.5 kg/m2 2022-03-19 00:00 BP_diastolic 58 mmHg 2022-03-19 00:00 BP_systolic 121 mmHg 2022-03-19 00:00 heart_rate 97 /min 2022-03-19 00:00 height_metric 152.4 cm 2022-03-19 00:00 height_standard 60 in 2022-03-19 00:00 o2_saturation 100 % 2022-03-19 00:00 respiration_rate 18 /min 2022-03-19 00:00 temperature_metric 36.89 C 2022-03-19 00:00 temperature_standard 98.4 F 2022-03-19 00:00 weight_metric 61.68 kg 2022-03-19 00:00 weight_standard 135.98 lb
--- NOTE | 2022-03-23 18:48 | XRAY Report ---
PROCEDURE: Hand 3 View RT INDICATIONS: R hand pain, swelling TECHNIQUE: Three views of the hand(s) acquired. COMPARISON: None. FINDINGS: Bones: No fractures or dislocations. No suspicious bony lesions. Soft tissues: No suspicious soft tissue calcifications. IMPRESSION: No acute finding. Reviewed by: Rommel Velez MD on 03/23/2022 6:47 PM PST Approved by: Rommel Velez MD on 03/23/2022 6:47 PM PST Station ID: [id number]
--- NOTE | 2022-03-23 19:40 | ED Physician Documentation ---
History of Present Illness - Stated complaint Stated Complaint: R HAND PX - Chief complaint Chief Complaint: Ext Problem - History obtained from History obtained from: Patient - History of Present Illness Timing: Today Pain level max: 4 Pain level now: 1 - Additonal information Additional information: 37-year-old female states that she was washing dishes when she felt a pulsatile sensation in her hand, looked down and noted bruising to the palm of her hand. Worse with palpation, nothing makes it better. No numbness or tingling. No bleeding. This is the right hand. Review of Systems Constitutional: denies: Fever Skin: denies: Rash PD PAST MEDICAL HISTORY - Past Medical History Past Medical History: No Cardiovascular: None Respiratory: None Neuro: None Endocrine/Autoimmune: None GI: None DRIFTMAN: None : None HEENT: None Psych: None Musculoskeletal: None Derm: None - Past Surgical History Past Surgical History: Yes General: Other - Present Medications Home Medications: Ambulatory Orders Medication Instructions Recorded Confirmed No Known Home Medications 03/23/22 03/23/22 - Allergies Allergies/Adverse Reactions: Allergies Allergy/AdvReac Type Severity Reaction Status Date / Time hydrocodone AdvReac Nausea Verified 03/23/22 18:08 - Social History Does the pt smoke?: Yes Smoking Status: Never smoker Does the pt drink ETOH?: Yes Does the pt have substance abuse?: Yes Substance Use and Type: Marijuana - Immunizations Immunizations are current?: No Immunizations: TDAP >10years/unknown - POLST Patient has POLST: No PD ED PE NORMAL - Vitals Vital signs reviewed: Yes - General General: Alert and oriented X 3, No acute distress - Derm Derm: Warm and dry - Extremities Extremities: Other (There is a small 0.5 cm ecchymotic area near the MCP joint on the palmar aspect of the third digit of the right hand. There is no swelling. No tenderness along the tendon sheath. No deformity. No pain with movement of the finger against resistance. Neurovascular intact) - Neuro Neuro: Alert and oriented X 3 Results - Vitals Vitals: Oxygen O2 Source Room air - Rads (name of study) Right hand x-ray Radiology: Final report received, See rad report (No acute abnormality) PD Medical Decision Making - ED course Complexity details: reviewed results, re-evaluated patient, considered differential, d/w patient ED course: Patient with a small area of bruising to the right hand, unclear etiology. A ultrasound probe was placed over the area and the tendon appears intact. There is no pain with flexion of the digit against resistance. Neurovascularly intact. X-ray is negative. We will have her follow-up with her doctor for further care. Using the hand while in the emergency department. Patient counseled regarding signs and symptoms for which I believe and urgent re- evaluation would be necessary. Patient with good understanding of and agreement to plan and is comfortable going home at this time This document was made in part using voice recognition software. While efforts are made to proofread this document, sound alike and grammatical errors may occur. Departure - Departure Disposition: 01 Home, Self Care Clinical Impression: Ecchymosis Condition: Good Instructions: ED Contusion Hand Follow-Up: HÉCTOR BOBBY DO [Primary Care Provider] - Comments: Your x-ray does not show any acute abnormalities. Your bedside ultrasound shows an intact tendon. Your blood supply is normal. Your capillary refill is normal. This should resolve on its own. I would recommend ice tonight at home. Please follow-up with your doctor and return if you worsen. Discharge Date/Time: 03/23/22 19:44
== END 2022-03-23 19:44 | disposition home or self-care (01) ==
LOC: ED 18:04
DX: R58 Hemorrhage, not elsewhere classified (principal)
CPT/HCPCS: 99282; 99283

== ENCOUNTER 2023-02-19 17:25 | Outpatient (CLI) | payer OTHER ==
--- NOTE | 2023-02-21 17:29 | Ultrasound Report ---
PROCEDURE: Duplex Ext Veins Right INDICATIONS: LEG EDEMA TECHNIQUE: Real-time imaging, as well as color and pulse Doppler interrogation, were performed of the lower extr emity deep veins from the inguinal ligament to the popliteal fossa. Attempted visualization of the ca lf veins was performed. COMPARISON: None. FINDINGS: The deep veins are normally compressible, and free of intraluminal thrombus. Color and pu lse Doppler demonstrate normal phasic intraluminal flow. There is normal augmentation response to di stal compression maneuver. IMPRESSION: No deep venous thrombosis of the visualized lower extremity. Reviewed by: Dolores Vazquez MD on 02/21/2023 5:28 PM PST Approved by: Dolores Vazquez MD on 02/21/2023 5:28 PM PST Station ID: [id number]
== END 2023-02-19 17:26 | disposition home or self-care (01) ==
LOC: DI 17:25
PROVIDERS: ATTEND Physician Assistant
DX: R60.0 Localized edema (principal)